=== PATIENT | male | born 1975 | race Two or more races ===

== ENCOUNTER 2022-08-09 13:00 | Emergency (ER) | payer MEDICAID, SELFPAY ==
--- NOTE | ~2022-08-09 | CT_ITS ---
EXAMINATION: CT ABDOMEN AND PELVIS WITHOUT CONTRAST CLINICAL INFORMATION: Left renal colic COMPARISON: CT abdomen and pelvis 06/25/2018 TECHNIQUE: Multidetector volumetric imaging was performed from the superior aspect of the liver through the pubic symphysis. Sagittal and coronal reformatted images were obtained on the technologist's workstation. This CT examination was performed using dose optimization techniques as appropriate, variously including the following: *Automated exposure control *Adjustment of mA and/or kV according to patient size (this includes techniques or standardized protocols for targeted exams where dose is matched to indication/reason for exam; i.e. extremities or head) *Use of iterative reconstruction technique DLP: 529 mGy-cm FINDINGS: LUNG BASES: There is platelike atelectasis right middle lobe and lingula and left lower lobe. Heart size is normal. LIVER, GALLBLADDER, AND BILIARY TREE: The liver is normal in size, shape, and and diffuse hypoattenuation right hepatic lobe No focal hepatic lesion or biliary ductal dilatation is present. The gallbladder is unremarkable with no evidence of radiopaque gallstones, gallbladder wall thickening, or obvious pericholecystic inflammatory changes. PANCREAS: Unremarkable. SPLEEN: Unremarkable. ADRENAL GLANDS: Unremarkable. KIDNEYS AND URETERS: The kidneys are normal in size, shape, and attenuation. There is 6 mm largely obstructive partially obstructive radiopaque calculi right proximal ureter with mild hydronephrosis. There is a partially obstructing left distal ureter 5 mm radiopaque calculi with mild hydroureter. In addition there are bilateral small radiopaque renal calculi. Nonobstructive 3 mm radiopaque radiopaque calculi upper pole and lower pole right kidney. 3 mm nonobstructive calculi mid to lower pole left kidney. BLADDER: Unremarkable. GASTROINTESTINAL TRACT: There is scattered diverticula, stool and gas seen throughout the right colon without distention. The small bowel loops are normal caliber. Appendix is not visualized ABDOMINAL WALL: Small umbilical hernia containing fat is noted. LYMPH NODES: Normal. VASCULAR: Unremarkable. PELVIC VISCERA: Unremarkable. OSSEOUS STRUCTURES: Unremarkable. CT/CT abdomen pelvis wo IV con IMPRESSION: 6 mm partially obstructive radiopaque calculi right distal ureter with mild hydronephrosis. Finally partially obstructive left distal ureter with mild hydronephrosis Bilateral nonobstructive radiopaque renal calculi Fleischner guidelines were followed.
[2022-08-09 13:08] VITALS: BP 141/89; PULSE 80; O2SAT 97
--- NOTE | 2022-08-09 13:23 | ED.GENADULT ---
HPI - General Adult General Chief complaint: Abdominal Pain Stated complaint: lower abd pain, per ems Time Seen by Provider: 08/09/22 13:03 Source: patient Mode of arrival: ambulatory Limitations: no limitations History of Present Illness HPI narrative: 47-year-old male presents with left-sided abdominal pain. The pain radiates left flank into the testicles. This pain started today. Patient describes the pain is constant but there are times it gets worse. There is no clear relieving or exacerbating features. Pain is moderate to severe in nature. Describes the pain as sharp. No fevers or chills. He does have nausea vomiting. He denies any urinary frequency, urgency, dysuria or hematuria. Denies any diarrhea constipation. Pain is similar to previous kidney stone. Related Data Previous Rx's Medication Instructions Recorded ibuprofen 600 mg tablet 600 mg PO TID PRN pain #14 tabs 08/09/22 ondansetron 4 mg disintegrating 4 mg PO Q8H PRN nausea and 08/09/22 tablet vomiting #10 tabs oxycodone 5 mg tablet 5 mg PO Q8H PRN pain #10 tabs 08/09/22 Allergies Allergy/AdvReac Type Severity Reaction Status Date / Time No Known Allergies Allergy Unverified 11/29/19 17:44 Review of Systems Review of Systems: GEN: Well developed, no acute distress, alert, oriented HEENT: Normocephalic, atraumatic, normal external ears, nose appears normal, no oropharyngeal edema or exudates Eyes: Normal to appearance Neck: Supple, no lymphadenopathy Respiratory: Talks in complete sentences, no respiratory distress, clear to auscultation bilaterally Cardiovascular: Regular rate and rhythm, no murmurs rubs or gallops Abdomen: Soft, nontender, nondistended, no guarding, no rebound Back: Left CVAT Extremities: No clubbing cyanosis or edema Neurologic: No focal neurologic deficits, cranial nerves 2-12 intact, strength is 5/5 bilaterally Skin: No rash PMFSH Social History Social History Alcohol intake: never Smoked in Last 30 Days: No Use of substances other than those prescribed or required for medical reasons: No Advance Directives: No Advance Directives Information Provided: Yes Physical Exam ED Vital Signs: Vital Signs - 24 hr 08/09/22 13:24 08/09/22 14:00 08/09/22 16:00 Temperature 97.9 F 98.4 F Pulse Rate 94 85 80 Respiratory Rate 18 18 16 Blood Pressure 131/85 114/81 123/84 Pulse Oximetry 98 96 97 Oxygen Delivery Method Room Air Room Air BMI result Body Mass Index 33.4 Course Course Course Narrative: 47-year-old male presents with flank pain. Exam revealed CVA tenderness. Patient has history kidney stones. This suspect the patient's symptoms are renal colic in nature. Will obtain a CT scan the abdomen pelvis. Will check urinalysis in addition lab testing. Will provide the patient with hydration, intravenous analgesia, antiemetics and re-evaluate patient. Reevaluation(s) Reevaluation #1: CT results pending. Dr. Sanchez to follow up on results, dipo pending Time: 16:30 Medications Administered Discontinued Medications Generic Name Dose Route Start Last Admin Trade Name Freq PRN Reason Stop Dose Admin Sodium Chloride 1,000 mls @ 999 mls/hr 08/09/22 13:30 08/09/22 13:30 Ns IV 08/09/22 14:30 999 mls/hr .Q1H1M CORRINE Administration Ketorolac Tromethamine 15 mg 08/09/22 13:18 08/09/22 13:34 Ketorolac Tromethamine 15 Mg/Ml Vial IVPUSH 08/09/22 13:19 15 mg ONCE ONE Administration Ondansetron HCl 4 mg 08/09/22 13:18 08/09/22 13:34 Ondansetron Hcl 4 Mg/2 Ml Vial IVPUSH 08/09/22 13:19 4 mg ONCE ONE Administration Medical Decision Making Medical Decision Making [facility] Narrative: 47-year-old male presents with left flank pain and abdominal pain. Symptoms are most consistent with renal colic. Other differential diagnosis could include diverticulitis, colitis, IBS, IBD, motility, musculoskeletal, shingles, radiculopathy. Will obtain a CT scan to rule out multiple these differential diagnoses. Will obtain routine lab testing. Will provide patient with IV fluids, analgesia and antiemetics. Differential Diagnosis Differential Diagnoses: The differential diagnosis associated with the presentation includes (See above) Admission/Observation Consideration of admission/observation: Escalation of care including admission/observation considered Lab Data [facility] Lab Attestation statement: I reviewed the patient's lab results. 08/09/22 13:48 08/09/22 13:48 Labs: Lab Results 08/09/22 08/09/22 08/09/22 Range/Units 13:48 13:48 14:27 WBC 8.8 (4.8-10.8) X10*3/uL RBC 5.75 (4.60-5.80) X10*6/uL Hgb 15.8 (14.0-18.0) g/dl Hct 48.9 (42.0-52.0) % MCV 85.0 (80.0-98.0) fL MCH 27.5 (27.0-33.0) pg MCHC 32.3 (31.0-36.0) g/dl RDW 13.7 (11.0-16.0) % Plt Count 224 (160-400) X10*3/uL MPV 11.1 (9.4-12.4) fL Immature Gran % (Auto) 0.3 (0.0-0.4) % Neut % (Auto) 76.5 H (45-73) % Lymph % (Auto) 15.4 L (20-40) % [place] % (Auto) 6.6 (2-11) % Eos % (Auto) 0.7 (0-4) % Baso % (Auto) 0.5 (0-2) % Lymph # (Auto) 1.4 (1.2-4.9) X10*3/uL [place] # (Auto) 0.6 (0.1-1.2) X10*3/uL Eos # (Auto) 0.1 (0.0-0.4) X10*3/uL Baso # (Auto) 0.0 (0.0-0.2) X10*3/uL Abs Immat Gran (auto) 0.03 (0.00-0.03) X10*3/uL Absolute Neuts (auto) 6.8 (2.0-8.3) x10*3/uL Absolute Nucleated RBC 0.000 (0.0-0.012) X10*3/uL Nucleated RBC % (auto) 0.0 (0.0-0.2) /100WBC Sodium 141 (135-145) mmol/L Potassium 4.7 (3.3-5.1) mmol/L Chloride 109 H (96-108) mmol/L Carbon Dioxide 25 (22-29) mmol/L Anion Gap 12 (12-20) BUN 12 (9-16) mg/dL Creatinine 1.32 (0.5-1.4) mg/dL Estim Creat Clear Calc 68.3 Estimated GFR 59 Random Glucose 136 H (60-115) mg/dL Calcium 9.6 (8.4-10.2) mg/dL Total Bilirubin 0.4 (0.0-1.0) mg/dL AST 23 (5-37) U/L ALT 41 H (0-40) U/L Alkaline Phosphatase 79 (39-117) U/L Total Protein 7.1 (6.5-8.0) g/dL Albumin 4.1 (3.5-5.0) g/dL Urine Color Yellow Urine Appearance Clear Urine pH 6.0 (5.0-9.0) Ur Specific Ord <= 1.005 (1.005-1.025) Urine Protein Negative (Neg-Trace) mg/dL Urine Glucose (UA) Negative (Negative) mg/dL Urine Ketones Negative (Negative) mg/dL Urine Blood Moderate (2+) H (Negative) Urine Nitrite Negative (Negative) Ur Leukocyte Esterase Negative (Negative) Independent Interpretation I performed an independent interpretation of an: CT Scan (3/4 mm UVJ stone left) Radiology Impression Discussion of test interpretation with radiology: I have reviewed the radiologist's reading. (Head:) Prescription Management I considered prescription management with: Pain Medication and Antibiotic Discharge Plan Discharge Clinical Impression: Acute flank pain, Calculus of kidney Patient Disposition: Home, Self-Care Instructions: Kidney Stones (ED) Prescriptions: New ibuprofen 600 mg tablet 600 mg PO TID PRN (Reason: pain) Qty: 14 0RF ondansetron 4 mg tablet,disintegrating 4 mg PO Q8H PRN (Reason: nausea and vomiting) Qty: 10 0RF oxycodone 5 mg tablet 5 mg PO Q8H PRN (Reason: pain) Qty: 10 0RF Rx Instructions: Partial Fill upon patient request. Referrals: Jeff Wang MD [Physician] - 3 days
[2022-08-09 13:24] VITALS: BP 131/85; PULSE 94; RESP 18; TEMP 36.6; O2SAT 98; BMI 33.4
[2022-08-09] MEDS: 0.9 % Sodium Chloride 1,000 ML 999 ML IV (13:30)
[2022-08-09] MEDS: Ketorolac Tromethamine 15 MG/ML VIAL IVPUSH (13:34)
[2022-08-09] MEDS: ondansetron HCL 4 MG/2 ML VIAL IVPUSH (13:34)
[2022-08-09 13:52] LABS: MANUAL DIFF FLAG NO
[2022-08-09 13:53] LABS: Basophils Percent Auto 0.5 % (0-2); Eosinophils Absolute Auto 0.1 X10*3/uL (0.0-0.4); Eosinophils Percent Auto 0.7 % (0-4); Hematocrit 48.9 % (42.0-52.0); Hemoglobin 15.8 g/dl (14.0-18.0); Imm Gran Abs Auto 0.03 X10*3/uL (0.00-0.03); Imm Gran Pct Auto 0.3 % (0.0-0.4); Lymphocytes Absolute Auto 1.4 X10*3/uL (1.2-4.9); Lymphocytes Percent Auto 15.4 % (20-40); Mean Corpuscular HGB Conc 32.3 g/dl (31.0-36.0); Mean Corpuscular Hemoglobin 27.5 pg (27.0-33.0); Mean Platelet Volume 11.1 fL (9.4-12.4); Monocytes Absolute Auto 0.6 X10*3/uL (0.1-1.2); Monocytes Percent Auto 6.6 % (2-11); Neutrophils Absolute Auto 6.8 x10*3/uL (2.0-8.3); Neutrophils Percent Auto 76.5 % (45-73); Platelet Count 224 X10*3/uL (160-400); Red Blood Count 5.75 X10*6/uL (4.60-5.80); Red Cell Distribution Width 13.7 % (11.0-16.0); White Blood Count 8.8 X10*3/uL (4.8-10.8)
[2022-08-09 14:00] VITALS: BP 114/81; PULSE 85; RESP 18; O2SAT 96
[2022-08-09 14:10] LABS: Alanine Aminotransferase 41 U/L (0-40); Albumin Level 4.1 g/dL (3.5-5.0); Alkaline Phosphatase 79 U/L (39-117); Anion Gap 12 (12-20); Aspartate Amino Transferase 23 U/L (5-37); Bilirubin Total 0.4 mg/dL (0.0-1.0); Blood Urea Nitrogen 12 mg/dL (9-16); Calcium 9.6 mg/dL (8.4-10.2); Carbon Dioxide 25 mmol/L (22-29); Chloride 109 mmol/L (96-108); Creatinine Clr Calc Pharmacy 68.3; Estimated Glomerular Filt Rate 59; Glucose Random 136 mg/dL (60-115); Potassium 4.7 mmol/L (3.3-5.1); Sodium 141 mmol/L (135-145); Total Protein 7.1 g/dL (6.5-8.0)
[2022-08-09 14:35] LABS: Appearance Urine Clear; Color Urine Yellow; Glucose Urine UA Negative (Negative); Leukocyte Esterase Urine Negative (Negative); Nitrite Urine Negative (Negative); Specific Gravity - Urine <= 1.005 (1.005-1.025); UMIC TRIGGER UACC YES; Urine Blood Moderate (2+) (Negative); Urine Ketones Negative (Negative); Urine Protein Negative (Neg-Trace)
[2022-08-09 16:00] VITALS: BP 123/84; PULSE 80; RESP 16; TEMP 36.9; O2SAT 97
[2022-08-09 16:30] LABS: Bacteria Urine None Seen (None Seen); Hyaline Casts Urine 0-2 /LPF (0-2); Squamous Epithelial Cell Urine 0-2 /HPF (0-2); WBC Urine 0-5 /HPF (0-5)
[2022-08-09 17:03] LABS: Glucose, Whole Blood 81 mg/dL (60-115)
[2022-08-09 17:26] VITALS: BP 126/89; PULSE 85; RESP 18; TEMP 36.9; O2SAT 98
[2022-08-09] MEDS: Tamsulosin HCL 0.4 MG CAPSULE PO (17:41)
[2022-08-09] MEDS: predniSONE 20 MG TABLET 40 MG PO (17:41)
[2022-08-09] MEDS: HYDROmorphone HCl 1 MG/ML SYRINGE IVPUSH (17:42)
--- NOTE | 2022-08-09 17:50 | PC.NURSE ---
pt medicated per MAY. reporting 7/10 pain.
== END 2022-08-09 18:25 | disposition home or self-care (01) ==
PROVIDERS: Emergency Provider Emergency Medicine; PCP Physician Assistant
DX: N20.0 Calculus of kidney (principal); R10.9 Unspecified abdominal pain; Z79.899 Other long term (current) drug therapy
CPT/HCPCS: 36415; 74176; 80053; 81001; 81003; 82947; 85025; 96361; 96374; 96375; 99284; J1170; J1885; J2405

== ENCOUNTER 2022-08-11 07:51 | Inpatient (IN) | payer MEDICAID, SELFPAY ==
--- NOTE | ~2022-08-11 | CT_ITS ---
EXAMINATION: CT ABDOMEN AND PELVIS WITHOUT CONTRAST CLINICAL INFORMATION: Reassess ureteral stents COMPARISON: 08/09/2022 and 06/26/2018 TECHNIQUE: Multidetector volumetric imaging was performed from the superior aspect of the liver through the pubic symphysis. Sagittal and coronal reformatted images were obtained on the technologist's workstation. This CT examination was performed using dose optimization techniques as appropriate, variously including the following: *Automated exposure control *Adjustment of mA and/or kV according to patient size (this includes techniques or standardized protocols for targeted exams where dose is matched to indication/reason for exam; i.e. extremities or head) *Use of iterative reconstruction technique DLP: 541 mGy-cm FINDINGS: LUNG BASES: Bibasilar subsegmental atelectasis. LIVER, GALLBLADDER, AND BILIARY TREE: Diffuse hepatic steatosis. No focal liver lesions. No biliary dilatation. Cholelithiasis suspected. No pericholecystic inflammation. PANCREAS: Unremarkable. SPLEEN: Unremarkable. ADRENAL GLANDS: Unremarkable. KIDNEYS AND URETERS: A 4.5 mm stone in the proximal right ureter just distal to the ureteropelvic junction at the level of L3 has not changed in position from 08/09/2022. A 3 mm stone at the left ureterovesical junction is also unchanged in position. There is bilateral hydronephrosis, slightly worse from prior, moderate on the left and mild on the right, with associated left perinephric fat stranding. There are 2 additional nonobstructive calculi in the right kidney and one nonobstructive calculus in the left kidney. BLADDER: Unremarkable. GASTROINTESTINAL TRACT: Gastric pneumatosis present. Remainder of the gastrointestinal tract unremarkable. Appendix not seen, however there is no evidence of appendicitis. ABDOMINAL WALL: No significant hernia is appreciated. LYMPH NODES: Normal. VASCULAR: Patent venous structures. PELVIC VISCERA: Mild prostatomegaly. Seminal vesicles unremarkable. OSSEOUS STRUCTURES: No acute or suspicious osseous abnormalities. CT/CT abdomen pelvis wo IV con IMPRESSION: * No change in position of the distal left and proximal right ureteral calculi as described. * Slightly worsened bilateral hydronephrosis, moderate left and mild right with accompanying perinephric fat stranding on the left. * Incidental finding of gastric pneumatosis. Gastric pneumatosis can result from gastric emphysema, as can be seen with traumatic disruption of the mucosa, other forms of trauma or gastric outlet obstruction. Emphysematous gastritis is seen in setting of infection with a gas producing bacteria. Please correlate with lactate, CBC and clinical status to distinguish between the two possibilities. Also, we recommend a GI consult. * Hepatic steatosis.
--- NOTE | ~2022-08-11 | FL_ITS ---
EXAMINATION: XR FLUOROSCOPY WITH IMAGES CLINICAL INFORMATION: Bilateral cystoscopy with stent placement. COMPARISON: CT scan of 08/11/2022. TECHNIQUE: Fluoroscopy Supervised By: Dr. Alvarez. Fluoroscopy Time: 49 seconds. Cumulative Dose: 15.62 mGy. Images: 3. FINDINGS: Intraoperative fluoroscopy demonstrates retrograde cystoureterography with right stent placement. FL/FL guidance in OR IMPRESSION: Intraoperative fluoroscopy for urological procedure.
[2022-08-11 07:56] VITALS: BP 115/88; PULSE 82; RESP 20; TEMP 36.4; O2SAT 99; BMI 31.9
[2022-08-11 08:01] VITALS: BP 123/83; PULSE 100; O2SAT 99
--- NOTE | 2022-08-11 08:03 | ED.GENADULT ---
HPI - General Adult General Chief complaint: Abdominal Pain Stated complaint: LLF PAIN,H/O KIDNEY STONE PER EMS Source: patient and EMS Mode of arrival: EMS Limitations: no limitations History of Present Illness HPI narrative: Patient is a 47-year-old male seen in this ED on 08/09/22 and was found to have 6mm partially obstructing calculi to right distal ureter as well as 5mm partially obstructing calculi to left distal ureter presenting today with left flank pain radiating to left groin as well as nausea and vomiting. He describes pain as constant. He reports that he has the urge to urinate but has been unable to void since waking. He reports last void was around midnight last night. When he attempted to urinate this morning he noted only several drops of blood. He reports nausea and vomiting for the past two days, denies fevers/chills. Patient states that he did not contact Dr. Wang's office yesterday as instructed because he thought he was supposed to call in 3 days. He took Tylenol this morning without relief of pain. MD complaint: unable to void, left flank pain Location: back and abdomen Severity: severe Pain Consistency: constant Treatments prior to arrival: other (Tylenol) Related Data Home Medications Medication Instructions Recorded Confirmed albuterol sulfate 90 mcg/actuation 2 puff inhalation Q6H PRN 08/11/22 08/11/22 aerosol inhaler (Ventolin HFA) Shortness Of Breath Or Wheezing celecoxib 100 mg capsule (Celebrex) 200 mg PO DAILY PRN Pain 08/11/22 08/11/22 clonazepam 0.5 mg tablet 0.5 mg PO BID PRN Anxiety 08/11/22 08/11/22 diclofenac sodium 1 % topical gel 4 g topical QID 08/11/22 08/11/22 famotidine 40 mg tablet 40 mg PO BEDTIME 08/11/22 08/11/22 fluticasone propionate 110 2 puff inhalation BID 08/11/22 08/11/22 mcg/actuation HFA aerosol inhaler fluticasone propionate 50 1 spray intranasal DAILY 08/11/22 08/11/22 mcg/actuation nasal spray,suspension loratadine 10 mg tablet 10 mg PO BEDTIME PRN Allergic 08/11/22 08/11/22 Reaction montelukast 10 mg tablet 10 mg PO BEDTIME 08/11/22 08/11/22 (Singulair) pregabalin 200 mg capsule 200 mg PO TID 08/11/22 08/11/22 sertraline 100 mg tablet 100 mg PO DAILY 08/11/22 08/11/22 zolpidem 10 mg tablet 10 mg PO BEDTIME PRN Sleep 08/11/22 08/11/22 Previous Rx's Medication Instructions Recorded ibuprofen 600 mg tablet 600 mg PO TID PRN pain #14 tabs 08/09/22 ondansetron 4 mg disintegrating 4 mg PO Q8H PRN nausea and 08/09/22 tablet vomiting #10 tabs oxycodone 5 mg tablet 5 mg PO Q8H PRN pain #10 tabs 08/09/22 prednisone 20 mg tablet 20 mg PO BID #10 tabs 08/09/22 tamsulosin 0.4 mg capsule (Flomax) 0.4 mg PO BEDTIME #10 caps 08/09/22 hydromorphone 2 mg tablet 2 mg PO Q6H PRN pain #6 tabs 08/12/22 (Dilaudid) Allergies Allergy/AdvReac Type Severity Reaction Status Date / Time No Known Allergies Allergy Verified 08/11/22 08:00 Review of Systems Review of Systems: As per HPI. Yes all other systems are reviewed and are negative Constitutional: Constitutional: Reports no additional constitutional complaints Cardiovascular: Cardiovascular: Reports no additional cardiovascular complaints Respiratory: Respiratory: Reports no additional respiratory complaints Gastrointestinal: Gastrointestinal: Reports no additional gastrointestinal complaints Genitourinary: Genitourinary: Reports no additional male genitourinary complaints Musculoskeletal: Musculoskeletal: Reports no additional musculoskeletal complaints Neurologic: Reports system reviewed and no additional complaints, except as documented [facility] Past Medical History Medical History (Updated 08/12/22 @ 17:31 by Jeff Raya MD) Anxiety Asthma Social History Social History Household Members: Significant Other Housing: Apartment Do you presently have visiting nurse or other home services: No Alcohol intake: never Patient Tobacco Use Status: Never used Tobacco service: No Current occupational status: disabled Physical Exam ED Vital Signs: Vital Signs - 24 hr 08/11/22 07:56 08/11/22 13:31 Temperature 97.6 F 98.1 F Pulse Rate 82 97 Respiratory Rate 20 16 Blood Pressure 115/88 133/89 Pulse Oximetry 99 98 Oxygen Delivery Method Room Air Room Air BMI result Body Mass Index 31.9 Vital signs have been reviewed and appear to be correct. Blood pressure normal. Heart rate normal. Respiratory rate normal. Temperature normal. Oxygen saturation normal. Const General: cooperative, healthy appearing and no acute distress; No comfortable Orientation/consciousness: oriented to person, oriented to place, oriented to time and patient oriented x3 Limitations: no limitations [facility] Head: Yes normocephalic and Yes atraumatic Ears: external ears normal General nose exam: Normal external nose present Face and sinus: Yes face symmetric Mouth: oropharynx normal and moist mucous membranes Throat: Yes uvula midline Eyes Pupils: Equal, round and reactive pupils present Neck Neck: Yes normal visual inspection and Yes supple Resp Effort & Inspection: normal respiratory effort and able to speak in complete sentences Auscultation: clear to auscultation bilaterally Cardio Rate: regular rate Rhythm: regular rhythm Heart sounds: S1 normal heart sound present and S2 normal heart sound present GI Inspection: Yes normal to inspection Palpation (GI): Soft to palpation, Tenderness to palpation present (GI) in the LLQ, no guarding and No Rebound tenderness present Auscultation: normoactive bowel sounds General: Yes CVA tenderness on the left Back/Spine/Pelvis Back: CVA tenderness Skin General skin exam: elasticity normal and turgor normal Neuro General: oriented to person, oriented to place, oriented to time, patient oriented x3, moves all extremities, no focal motor deficits and CN's II-XI intact bilaterally Cranial nerves: Yes Equal, round and reactive pupils present Cognition (Neuro): normal cognition Extrem General: Yes full ROM, Yes no pedal edema and Yes no calf tenderness Psych Mental Status: mental status grossly normal Affect: normal affect Thought process: Normal thought process present Course Course Course Narrative: 09:50 Repeat bladder scan after administration of 1L IVF shows 30mL. Creatinine up from Tuesday. Will order additional liter of fluids and reassess. 11:31 Patient able to urinate but pain has increased. Will remedicate with Constantino Caban text to Dr. Ambrose. 12:48 Dr. Ambrose recommends rescanning patient to determine if he needs bilateral stents. She will admit for IVF and stent tomorrow. Patient to remain NPO. Patient updated on plan and all questions answered, patient agreeable with plan. 14:33 Received call from radiologist, patient with gastric pneumatosis on CT. Advised to correlate clinically, he recommends obtaining a lactic level. He advised that if patient is not febrile, has no leukocytosis and is hemodynamically stable, this is likely related to a gas producing organism or from vomiting/wretching. Patient is afebrile, has no leukocytosis, and has remained hemodynamically stable while in the ED. Spoke with Dr. Ambrose and updated her with this information. Will obtain lactic and patient to remain NPO. 16:04 Lactic WNL, Dr. Ambrose updated and admitted patient Medications Administered Discontinued Medications Generic Name Dose Route Start Last Admin Trade Name Freq PRN Reason Stop Dose Admin Hydromorphone HCl 0.5 mg 08/11/22 09:55 08/11/22 10:11 Hydromorphone Hcl 0.5 Mg/0.5 Ml Syringe IVPUSH 08/11/22 09:56 0.5 mg ONCE ONE Administration Protocol Hydromorphone HCl 0.5 mg 08/11/22 11:30 08/11/22 11:38 Hydromorphone Hcl 0.5 Mg/0.5 Ml Syringe IVPUSH 08/11/22 11:31 0.5 mg ONCE ONE Administration Protocol Hydromorphone HCl 0.5 mg 08/11/22 15:20 08/11/22 15:26 Hydromorphone Hcl 0.5 Mg/0.5 Ml Syringe IVPUSH 08/11/22 15:21 0.5 mg ONCE ONE Administration Protocol Hydromorphone HCl 0.5 mg 08/11/22 15:57 08/12/22 19:56 Hydromorphone Hcl 1 Mg/Ml Syringe IVPUSH 0.5 mg Q3H PRN Administration Pain, Severe (Pain Scale 7-10) Protocol Sodium Chloride 1,000 mls @ 999 mls/hr 08/11/22 08:30 08/11/22 09:27 Ns IV 08/11/22 09:30 Infused .Q1H1M CORRINE Infusion Sodium Chloride 1,000 mls @ 999 mls/hr 08/11/22 09:30 08/11/22 11:41 Ns IV 08/11/22 10:30 Infused .Q1H1M CORRINE Infusion Lactated Ringer's 1,000 mls @ 100 mls/hr 08/11/22 16:00 08/12/22 17:57 Lr IVCONT 0 mls/hr .Q10H CORRINE Infusion Cefazolin Sodium/Dextrose 2 gm in 50 mls @ 100 mls/hr 08/12/22 16:46 08/12/22 20:44 Ancef IV 08/12/22 17:15 Not Given PREOP ONE Acetaminophen 1,000 mg in 100 mls @ 400 mls/hr 08/12/22 17:34 08/12/22 20:45 Ofirmev IV 08/12/22 17:48 Not Given ONCE ONE Ketorolac Tromethamine 15 mg 08/11/22 08:10 08/11/22 08:24 Ketorolac Tromethamine 15 Mg/Ml Vial IVPUSH 08/11/22 08:11 15 mg ONCE ONE Administration Methylprednisolone Sodium Succinate 60 mg 08/11/22 08:16 08/11/22 08:24 Methylprednisolone Sod Succ 125 Mg/2 Ml Vial IVPUSH 08/11/22 08:17 60 mg ONCE ONE Administration Ondansetron HCl 4 mg 08/11/22 08:10 08/11/22 08:24 Ondansetron Hcl 4 Mg/2 Ml Vial IVPUSH 08/11/22 08:11 4 mg ONCE ONE Administration Sodium Chloride 3 ml 08/11/22 16:00 08/12/22 14:37 0.9 % Sodium Chloride Flush 3 Ml Syringe IVFLUSH Not Given QSHIFT CORRINE Tamsulosin HCl 0.4 mg 08/11/22 08:16 08/11/22 08:24 Tamsulosin Hcl 0.4 Mg Capsule PO 08/11/22 08:17 0.4 mg ONCE ONE Administration Medical Decision Making Medical Decision Making [facility] Narrative: Patient is a 47-year-old male seen in this ED on 08/09/22 and was found to have 6mm partially obstructing calculi to right distal ureter as well as 5mm partially obstructing calculi to left distal ureter presenting today with left flank pain radiating to left groin as well as nausea and vomiting. On exam patient appears uncomfortable, is awake, A+Ox3, initial bladder scans reading 0mL, abdomen soft, TTP LLQ, + L CVA tenderness. Given known calculi concerned for obstructing/infected stone versus pyelonephritis. Less likely diverticulitis, appendicitis, colitis, IBD. Plan: labs, UA, medicate with antiemetics, analgesia, tamsulosin, reassess Please refer to course for remaining clinical decision making. Differential Diagnosis Differential Diagnoses: The differential diagnosis associated with the presentation includes As above. Admission/Observation Consideration of admission/observation: Escalation of care including admission/observation considered Consult Healthcare Provider Management of the patient was discussed with: Agriculture Sales Account Manager (Dr. Ambrose) Lab Data MDM Lab Attestation statement: I reviewed the patient's lab results. 08/11/22 08:13 08/11/22 08:13 Labs: Lab Results 08/11/22 08/11/22 08/11/22 Range/Units 08:13 08:13 11:32 WBC 8.4 (4.8-10.8) X10*3/uL RBC 5.78 (4.60-5.80) X10*6/uL Hgb 15.6 (14.0-18.0) g/dl Hct 49.2 (42.0-52.0) % MCV 85.1 (80.0-98.0) fL MCH 27.0 (27.0-33.0) pg MCHC 31.7 (31.0-36.0) g/dl RDW 14.1 (11.0-16.0) % Plt Count 219 (160-400) X10*3/uL MPV 10.9 (9.4-12.4) fL Immature Gran % (Auto) 0.4 (0.0-0.4) % Neut % (Auto) 59.4 (45-73) % Lymph % (Auto) 28.3 (20-40) % [place] % (Auto) 8.7 (2-11) % Eos % (Auto) 2.7 (0-4) % Baso % (Auto) 0.5 (0-2) % Lymph # (Auto) 2.4 (1.2-4.9) X10*3/uL [place] # (Auto) 0.7 (0.1-1.2) X10*3/uL Eos # (Auto) 0.2 (0.0-0.4) X10*3/uL Baso # (Auto) 0.0 (0.0-0.2) X10*3/uL Abs Immat Gran (auto) 0.03 (0.00-0.03) X10*3/uL Absolute Neuts (auto) 5.0 (2.0-8.3) x10*3/uL Absolute Nucleated RBC 0.000 (0.0-0.012) X10*3/uL Nucleated RBC % (auto) 0.0 (0.0-0.2) /100WBC Sodium 146 H (135-145) mmol/L Potassium 4.7 (3.3-5.1) mmol/L Chloride 111 H (96-108) mmol/L Carbon Dioxide 26 (22-29) mmol/L Anion Gap 14 (12-20) BUN 12 (9-16) mg/dL Creatinine 1.43 H (0.5-1.4) mg/dL Estim Creat Clear Calc 61.6 Estimated GFR 53 Random Glucose 138 H (60-115) mg/dL Lactic Acid (0.5-2.0) mmol/L Calcium 9.7 (8.4-10.2) mg/dL Urine Color Yellow Urine Appearance Clear Urine pH 8.0 (5.0-9.0) Ur Specific [place] 1.010 (1.005-1.025) Urine Protein Negative (Neg-Trace) mg/dL Urine Glucose (UA) Negative (Negative) mg/dL Urine Ketones Negative (Negative) mg/dL Urine Blood Trace H (Negative) Urine Nitrite Negative (Negative) Ur Leukocyte Esterase Negative (Negative) Urine RBC 3-5 H (0-2) /HPF Urine WBC 0-5 (0-5) /HPF Ur Squamous Epith Cells 0-2 (0-2) /HPF Urine Bacteria None Seen (None Seen) Hyaline Casts 0-2 (0-2) /LPF 08/11/22 Range/Units 14:58 WBC (4.8-10.8) X10*3/uL RBC (4.60-5.80) X10*6/uL Hgb (14.0-18.0) g/dl Hct (42.0-52.0) % MCV (80.0-98.0) fL MCH (27.0-33.0) pg MCHC (31.0-36.0) g/dl RDW (11.0-16.0) % Plt Count (160-400) X10*3/uL MPV (9.4-12.4) fL Immature Gran % (Auto) (0.0-0.4) % Neut % (Auto) (45-73) % Lymph % (Auto) (20-40) % [place] % (Auto) (2-11) % Eos % (Auto) (0-4) % Baso % (Auto) (0-2) % Lymph # (Auto) (1.2-4.9) X10*3/uL [place] # (Auto) (0.1-1.2) X10*3/uL Eos # (Auto) (0.0-0.4) X10*3/uL Baso # (Auto) (0.0-0.2) X10*3/uL Abs Immat Gran (auto) (0.00-0.03) X10*3/uL Absolute Neuts (auto) (2.0-8.3) x10*3/uL Absolute Nucleated RBC (0.0-0.012) X10*3/uL Nucleated RBC % (auto) (0.0-0.2) /100WBC Sodium (135-145) mmol/L Potassium (3.3-5.1) mmol/L Chloride (96-108) mmol/L Carbon Dioxide (22-29) mmol/L Anion Gap (12-20) BUN (9-16) mg/dL Creatinine (0.5-1.4) mg/dL Estim Creat Clear Calc Estimated GFR Random Glucose (60-115) mg/dL Lactic Acid 0.9 (0.5-2.0) mmol/L Calcium (8.4-10.2) mg/dL Urine Color Urine Appearance Urine pH (5.0-9.0) Ur Specific [place] (1.005-1.025) Urine Protein (Neg-Trace) mg/dL Urine Glucose (UA) (Negative) mg/dL Urine Ketones (Negative) mg/dL Urine Blood (Negative) Urine Nitrite (Negative) Ur Leukocyte Esterase (Negative) Urine RBC (0-2) /HPF Urine WBC (0-5) /HPF Ur Squamous Epith Cells (0-2) /HPF Urine Bacteria (None Seen) Hyaline Casts (0-2) /LPF Independent Interpretation I performed an independent interpretation of an: CT Scan Interpretation: I independently reviewed the CT scan and agree with the radiologist's interpretation. Radiology Impression Discussion of test interpretation with radiology: I have reviewed the radiologist's reading. Radiologist Impression: FINDINGS: LUNG BASES: Bibasilar subsegmental atelectasis.? LIVER, GALLBLADDER, AND BILIARY TREE: Diffuse hepatic steatosis. No focal liver lesions. No biliary dilatation. Cholelithiasis suspected. No pericholecystic inflammation.? PANCREAS: Unremarkable.? SPLEEN: Unremarkable.? ADRENAL GLANDS: Unremarkable.? KIDNEYS AND URETERS: A 4.5 mm stone in the proximal right ureter just distal to the ureteropelvic junction at the level of L3 has not changed in position from 08/09/2022. A 3 mm stone at the left ureterovesical junction is also unchanged in position. There is bilateral hydronephrosis, slightly worse from prior, moderate on the left and mild on the right, with associated left perinephric fat stranding. There are 2 additional nonobstructive calculi in the right kidney and one nonobstructive calculus in the left kidney. BLADDER: Unremarkable.? GASTROINTESTINAL TRACT: Gastric pneumatosis present. Remainder of the gastrointestinal tract unremarkable. Appendix not seen, however there is no evidence of appendicitis.? ABDOMINAL WALL: No significant hernia is appreciated.? LYMPH NODES: Normal. VASCULAR: Patent venous structures. PELVIC VISCERA: Mild prostatomegaly. Seminal vesicles unremarkable.? OSSEOUS STRUCTURES: No acute or suspicious osseous abnormalities.? CT/CT abdomen pelvis wo IV con IMPRESSION: *? No change in position of the distal left and proximal right ureteral calculi as described. *? Slightly worsened bilateral hydronephrosis, moderate left and mild right with accompanying perinephric fat stranding on the left. *? Incidental finding of gastric pneumatosis. Gastric pneumatosis can result from gastric emphysema, as can be seen with traumatic disruption of the mucosa, other forms of trauma or gastric outlet obstruction. Emphysematous gastritis is seen in setting of infection with a gas producing bacteria. Please correlate with lactate, CBC and clinical status to distinguish between the two possibilities. Also, we recommend a GI consult. *? Hepatic steatosis. External Record Review External record reviewed: Inpatient record, Office record and Outpatient record Prescription Management I considered prescription management with: Pain Medication Discharge Plan Discharge Clinical Impression: Bilateral ureteral calculi Patient Disposition: Admitted As Inpatient Interventions: Admission Worksheet (ED) Last Done: 08/11/22 17:14 Discharge Date/Time: 08/11/22 17:14
[2022-08-11] MEDS: 0.9 % Sodium Chloride 1,000 ML 999 ML IV ×2 (08:23→09:54)
[2022-08-11] MEDS: Ketorolac Tromethamine 15 MG/ML VIAL IVPUSH (08:24)
[2022-08-11] MEDS: ondansetron HCL 4 MG/2 ML VIAL IVPUSH (08:24)
[2022-08-11] MEDS: Tamsulosin HCL 0.4 MG CAPSULE PO (08:24)
[2022-08-11] MEDS: methylPREDNISolone Sod Succ 125 MG/2 ML VIAL 60 MG IVPUSH (08:24)
[2022-08-11 08:25] LABS: MANUAL DIFF FLAG NO
[2022-08-11 08:30] LABS: Basophils Percent Auto 0.5 % (0-2); Eosinophils Absolute Auto 0.2 X10*3/uL (0.0-0.4); Eosinophils Percent Auto 2.7 % (0-4); Hematocrit 49.2 % (42.0-52.0); Hemoglobin 15.6 g/dl (14.0-18.0); Imm Gran Abs Auto 0.03 X10*3/uL (0.00-0.03); Imm Gran Pct Auto 0.4 % (0.0-0.4); Lymphocytes Absolute Auto 2.4 X10*3/uL (1.2-4.9); Lymphocytes Percent Auto 28.3 % (20-40); Mean Corpuscular HGB Conc 31.7 g/dl (31.0-36.0); Mean Corpuscular Volume 85.1 fL (80.0-98.0); Mean Platelet Volume 10.9 fL (9.4-12.4); Monocytes Absolute Auto 0.7 X10*3/uL (0.1-1.2); Monocytes Percent Auto 8.7 % (2-11); Neutrophils Percent Auto 59.4 % (45-73); Platelet Count 219 X10*3/uL (160-400); Red Blood Count 5.78 X10*6/uL (4.60-5.80); Red Cell Distribution Width 14.1 % (11.0-16.0); White Blood Count 8.4 X10*3/uL (4.8-10.8)
[2022-08-11 08:45] LABS: Anion Gap 14 (12-20); Blood Urea Nitrogen 12 mg/dL (9-16); Calcium 9.7 mg/dL (8.4-10.2); Carbon Dioxide 26 mmol/L (22-29); Chloride 111 mmol/L (96-108); Creatinine Clr Calc Pharmacy 61.6; Estimated Glomerular Filt Rate 53; Glucose Random 138 mg/dL (60-115); Potassium 4.7 mmol/L (3.3-5.1); Sodium 146 mmol/L (135-145)
[2022-08-11] MEDS: HYDROmorphone HCl 0.5 MG/0.5 ML SYRINGE IVPUSH ×3 (10:11→15:26)
[2022-08-11 11:41] LABS: Appearance Urine Clear; Color Urine Yellow; Glucose Urine UA Negative (Negative); Leukocyte Esterase Urine Negative (Negative); Nitrite Urine Negative (Negative); UMIC TRIGGER UACC YES; Urine Blood Trace (Negative); Urine Ketones Negative (Negative); Urine Protein Negative (Neg-Trace)
[2022-08-11 11:45] LABS: Bacteria Urine None Seen (None Seen); Hyaline Casts Urine 0-2 /LPF (0-2); Squamous Epithelial Cell Urine 0-2 /HPF (0-2); WBC Urine 0-5 /HPF (0-5)
[2022-08-11 13:31] VITALS: BP 133/89; PULSE 97; RESP 16; TEMP 36.7; O2SAT 98
--- NOTE | 2022-08-11 13:36 | PC.NURSE ---
patient alert, oriented x4. able to make needs known. ambulating to and from the bathroom with strong independent gait. call galicia within reach
--- NOTE | 2022-08-11 13:54 | PHA.MEDREC ---
Pharmacy Consult ? Medication Reconciliation Pharmacy has completed the medication reconciliation. Med rec complete using med list obtained from [facility] and discharge summary from 08/09.
--- NOTE | 2022-08-11 15:16 | PC.NURSE ---
Resumed care of patient, pt complaining of 8/10 pain at this time, awaiting admission orders. All other needs made at this time.
[2022-08-11 15:17] LABS: Lactic Acid 0.9 mmol/L (0.5-2.0)
[2022-08-11 15:26] VITALS: RESP 20
--- NOTE | 2022-08-11 15:59 | P.HPGS_ITS ---
History of Present Illness History of Present Illness Date of Service: 08/12/22 Chief complaint: acute kidney insufficeny secondary to obstructive Narrative: Vidal Ennis is a 47-year-old male seen in this ED on 08/09/22 and was found to have 6mm partially obstructing calculi to right proximal ureter stone and a 5mm left distal ureter, he was sent home with flomax and comes in today with worsening left flank pain radiating to left groin as well as nausea and vomiting.? He describes pain as constant.? He reports that he has the urge to urinate but has been unable to void since waking.? He reports last void was around midnight last night.? When he attempted to urinate this morning he noted only several drops of blood.? He reports nausea and vomiting for the past two days, denies fevers/chills. Patient states that he did not contact Dr. Wang's office yesterday as instructed because he thought he was supposed to call in 3 days.? He took Tylenol this morning without relief of pain. Repeat CTAP notes bilateral ureteral stones in similar position with worsening hydronephrosis. [facility] Social History Social History Household Members: Significant Other Housing: Apartment Do you presently have visiting nurse or other home services: No Alcohol intake: never Patient Tobacco Use Status: Never used Tobacco Use of substances other than those prescribed or required for medical reasons: No Currently Displaying Signs/Symptoms of Drug Intoxication Withdrawal: No Have you been hit, kicked, punched, or otherwise hurt by someone within the past year? If so, by whom?: No Do you feel safe in your current relationship?: Yes Is there a partner from a previous relationship who is making you feel unsafe now?: No Are you made to feel afraid or neglected: No Advance Directives: No Advance Directives Information Provided: No Do you have thoughts of harming others: None Do you have a plan to hurt others: No Plan Recently lost weight without trying: No Eating poorly because of decreased appetite: No Nutrition Risks: No Nutritional Risk Poor oral hygiene: No service: No Current occupational status: disabled Meds Allergies Allergy/AdvReac Type Severity Reaction Status Date / Time No Known Allergies Allergy Verified 08/11/22 08:00 Active Medications: Current Medications Hydromorphone HCl (Hydromorphone Hcl 1 Mg/Ml Syringe) 0.5 mg IVPUSH Q3H PRN; Protocol PRN Reason: Pain, Severe (Pain Scale 7-10) Pharmacy Consult (Consult Rx Perform Med Rec) 1 each MISCELLANE ONCE PRN PRN Reason: Consult order Sodium Chloride (0.9 % Sodium Chloride Flush 3 Ml Syringe) [facility] Medic[facility] Medication Instructions Recorded Confirmed Last Taken Type albuterol sulfate 90 mcg/actuation 2 puff inhalation Q6H PRN 08/11/22 08/11/22 Unknown History aerosol inhaler (Ventolin HFA) Shortness Of Breath Or Wheezing celecoxib 100 mg capsule (Celebrex) 200 mg PO DAILY PRN Pain 08/11/22 08/11/22 Unknown History clonazepam 0.5 mg tablet 0.5 mg PO BID PRN Anxiety 08/11/22 08/11/22 Unknown History diclofenac sodium 1 % topical gel 4 g topical QID 08/11/22 08/11/22 Unknown History famotidine 40 mg tablet 40 mg PO BEDTIME 08/11/22 08/11/22 Unknown History fluticasone propionate 110 2 puff inhalation BID 08/11/22 08/11/22 Unknown History mcg/actuation HFA aerosol inhaler fluticasone propionate 50 1 spray intranasal DAILY 08/11/22 08/11/22 Unknown History mcg/actuation nasal spray,suspension loratadine 10 mg tablet 10 mg PO BEDTIME PRN Allergic 08/11/22 08/11/22 Unknown History Reaction montelukast 10 mg tablet 10 mg PO BEDTIME 08/11/22 08/11/22 Unknown History (Singulair) pregabalin 200 mg capsule 200 mg PO TID 08/11/22 08/11/22 Unknown History sertraline 100 mg tablet 100 mg PO DAILY 08/11/22 08/11/22 Unknown History zolpidem 10 mg tablet 10 mg PO BEDTIME PRN Sleep 08/11/22 08/11/22 Unknown History Physical Exam Vital Signs: Vital Signs: Last Vital Signs Temp 98.1 F 08/11/22 13:31 Pulse 97 08/11/22 13:31 Resp 20 08/11/22 15:26 BP 133/89 08/11/22 13:31 Pulse Ox 98 08/11/22 13:31 O2 Del Method Room Air 08/11/22 13:31 BMI result Body Mass Index 31.9 Const: General: healthy appearing, no acute distress and well developed Orientation/consciousness: patient oriented x3 HEENT: Head: Yes normocephalic and Yes atraumatic Eyes: Conjunctivae: conjunctivae normal Neck: Neck: Yes normal visual inspection Chest: Chest palpation & inspection: normal inspection of the chest Resp: Effort & Inspection: normal respiratory effort Cardio: Rate: regular rate GI: Inspection: Yes normal to inspection Palpation (GI): Soft to palpation : General: Yes CVA tenderness (bilateral) Back/Spine/Pelvis: Back: CVA tenderness (bilateral) Skin: General skin exam: no rashes or lesions noted Neuro: General: patient oriented x3 Extrem: General: No pedal edema Psych: Appearance: grossly normal Affect: normal affect Results Results Labs: Short CBC 08/11/22 Range/Units 08:13 WBC 8.4 (4.8-10.8) X10*3/uL Hgb 15.6 (14.0-18.0) g/dl Hct 49.2 (42.0-52.0) % Plt Count 219 (160-400) X10*3/uL BMP 08/11/22 08:13 Sodium 146 H Potassium 4.7 Chloride 111 H Carbon Dioxide 26 BUN 12 Creatinine 1.43 H Calcium 9.7 Urine 08/11/22 Range/Units 11:32 Urine Color Yellow Urine Appearance Clear Urine pH 8.0 (5.0-9.0) Ur Specific [place] 1.010 (1.005-1.025) Urine Protein Negative (Neg-Trace) mg/dL Urine Glucose (UA) Negative (Negative) mg/dL Abdomen CT scan report/results: report reviewed and image reviewed CT scan - pelvis: report reviewed and image reviewed Additional studies: Date of Service: 08/11/22 EXAMINATION: CT ABDOMEN AND PELVIS WITHOUT CONTRAST? CLINICAL INFORMATION: Reassess ureteral stents? COMPARISON: 08/09/2022 and 06/26/2018 TECHNIQUE: Multidetector volumetric imaging was performed from the superior aspect of the liver through the pubic symphysis. Sagittal and coronal reformatted images were obtained on the technologist's workstation.? This CT examination was performed using dose optimization techniques as appropriate, variously including the following: *Automated exposure control *Adjustment of mA and/or kV according to patient size (this includes techniques or standardized protocols for targeted exams where dose is matched to indication/reason for exam; i.e. extremities or head) *Use of iterative reconstruction technique DLP: 541 mGy-cm FINDINGS: LUNG BASES: Bibasilar subsegmental atelectasis.? LIVER, GALLBLADDER, AND BILIARY TREE: Diffuse hepatic steatosis. No focal liver lesions. No biliary dilatation. Cholelithiasis suspected. No pericholecystic inflammation.? PANCREAS: Unremarkable.? SPLEEN: Unremarkable.? ADRENAL GLANDS: Unremarkable.? KIDNEYS AND URETERS: A 4.5 mm stone in the proximal right ureter just distal to the ureteropelvic junction at the level of L3 has not changed in position from 08/09/2022. A 3 mm stone at the left ureterovesical junction is also unchanged in position. There is bilateral hydronephrosis, slightly worse from prior, moderate on the left and mild on the right, with associated left perinephric fat stranding. There are 2 additional nonobstructive calculi in the right kidney and one nonobstructive calculus in the left kidney. BLADDER: Unremarkable.? GASTROINTESTINAL TRACT: Gastric pneumatosis present. Remainder of the gastrointestinal tract unremarkable. Appendix not seen, however there is no evidence of appendicitis.? ABDOMINAL WALL: No significant hernia is appreciated.? LYMPH NODES: Normal. VASCULAR: Patent venous structures. PELVIC VISCERA: Mild prostatomegaly. Seminal vesicles unremarkable.? OSSEOUS STRUCTURES: No acute or suspicious osseous abnormalities.? IMPRESSION: *? No change in position of the distal left and proximal right ureteral calculi as described. *? Slightly worsened bilateral hydronephrosis, moderate left and mild right with accompanying perinephric fat stranding on the left. *? Incidental finding of gastric pneumatosis. Gastric pneumatosis can result from gastric emphysema, as can be seen with traumatic disruption of the mucosa, other forms of trauma or gastric outlet obstruction. Emphysematous gastritis is seen in setting of infection with a gas producing bacteria. Please correlate with lactate, CBC and clinical status to distinguish between the two possibilities. Also, we recommend a GI consult. *? Hepatic steatosis. Assessment and Plan (1) Bilateral ureteral calculi: Status: Acute (2) Hydronephrosis concurrent with and due to calculi of kidney and ureter: Status: Acute (3) Acute renal insufficiency: Status: Acute (4) Obstructive uropathy: Status: Acute Plan Plan for Cystoscopy, bilateral ureteroscopy, possible laser lithotripsy, bilateral ureteral stents. Risks discussed included but not limited to, possible need to repeat procedure if stone is not completely fragmented, Irritative voiding symptoms, bladder spasms, urgency, blood in urine. Time Spent With Patient Time: Total time managing care of this patient today ____ minutes. Quality Stroke Does the patient have a stroke diagnosis?: No VTE Prior VTE?: No VTE Risk Level:: Surgical - low VTE Device Contraindication: N/A - Device Ordered VTE Drug Contraindication: Treatment Not Indicated Procedures Date of Service Date of Service: 08/12/22
--- NOTE | 2022-08-11 16:34 | PC.NURSE ---
Report given to Kaylene on M3, pt to be transported to unit
[2022-08-11 17:09] VITALS: BP 116/72; PULSE 85; RESP 18; TEMP 36.6; O2SAT 99
[2022-08-11] MEDS: Lactated Ringers 1,000 ML 100 ML IVCONT (17:21)
[2022-08-11] MEDS: 0.9 % Sodium Chloride Flush 3 ML SYRINGE IVFLUSH (17:21)
[2022-08-11 17:35] VITALS: BMI 32.8
[2022-08-11] MEDS: HYDROmorphone HCl 1 MG/ML SYRINGE 0.5 MG IVPUSH (18:27)
[2022-08-11 19:34] VITALS: BP 125/79; PULSE 79; RESP 17; TEMP 36.1; O2SAT 95
[2022-08-12] VITALS (11 sets, daily range): BP systolic 100–140; BP diastolic 46–90; PULSE 68–90; RESP 12–20; TEMP 36.1–37.2; O2SAT 90–98
[2022-08-12] MEDS: HYDROmorphone HCl 1 MG/ML SYRINGE 0.5 MG IVPUSH ×3 (00:05→19:56)
[2022-08-12] MEDS: Lactated Ringers 1,000 ML 100 ML IVCONT ×2 (03:08→13:26)
--- NOTE | 2022-08-12 09:38 | MHC.CM.PN ---
MALE 47 DX RENAL INSUFFICIENCY W OBSTRUCTION Patient lives with S.O. He is independent with all functional mobility. Vaxxed for covid. Patient declined offer to document a HCP. DP home self care. Patient will transport via [facility] ([place] shuttle.
--- NOTE | 2022-08-12 17:27 | P.CONAN_ITS ---
HPI - Anesthesia Eval Consult details Narrative: Bilaterral distal ureter stones, hydronephrosis, acute renal insufficiency [facility] Active Problems Active Problems: All Active Problems (Updated 08/12/22 @ 16:45 by Shonna Alvarez MD) Obstructive uropathy (Acute) Acute renal insufficiency (Acute) Hydronephrosis concurrent with and due to calculi of kidney and ureter (Acute) Bilateral ureteral calculi (Acute) Past Medical History Medical History (Updated 08/12/22 @ 17:31 by Jeff Raya MD) Anxiety Asthma Family History Family history of problems with anesthesia: No Surgical History History of Problems with Anesthesia: No Social History Social History Household Members: Significant Other Housing: Apartment Do you presently have visiting nurse or other home services: No Alcohol intake: never Patient Tobacco Use Status: Never used Tobacco Use of substances other than those prescribed or required for medical reasons: No Currently Displaying Signs/Symptoms of Drug Intoxication Withdrawal: No Have you been hit, kicked, punched, or otherwise hurt by someone within the past year? If so, by whom?: No Do you feel safe in your current relationship?: Yes Is there a partner from a previous relationship who is making you feel unsafe now?: No Are you made to feel afraid or neglected: No Are you DNR?: No Advance Directives: No Advance Directives Information Provided: No Do you have thoughts of harming others: None Do you have a plan to hurt others: No Plan Recently lost weight without trying: No Eating poorly because of decreased appetite: No Nutrition Risks: No Nutritional Risk Poor oral hygiene: No service: No Current occupational status: disabled Meds Allergies Allergy/AdvReac Type Severity Reaction Status Date / Time No Known Allergies Allergy Verified 08/11/22 08:00 Active Medications: Current Medications Hydromorphone HCl (Hydromorphone Hcl 1 Mg/Ml Syringe) 0.5 mg IVPUSH Q3H PRN; Protocol PRN Reason: Pain, Severe (Pain Scale 7-10) Last Admin: 08/12/22 10:24 Dose: 0.5 mg Lactated Ringer's (Lr) 1,000 mls @ 100 mls/hr IVCONT .Q10H CORRINE Last Admin: 08/12/22 13:26 Dose: 100 mls/hr Pharmacy Consult (Consult Rx Perform Med Rec) 1 each MISCELLANE ONCE PRN PRN Reason: Consult order Sodium Chloride (0.9 % Sodium Chloride Flush 3 Ml Syringe) 3 ml IVFLUSH QSHIFT CORRINE Last Admin: 08/12/22 14:37 Dose: Not Given Home Medications Medication Instructions Recorded Confirmed Last Taken Type albuterol sulfate 90 mcg/actuation 2 puff inhalation Q6H PRN 08/11/22 08/11/22 Unknown History aerosol inhaler (Ventolin HFA) Shortness Of Breath Or Wheezing celecoxib 100 mg capsule (Celebrex) 200 mg PO DAILY PRN Pain 08/11/22 08/11/22 Unknown History clonazepam 0.5 mg tablet 0.5 mg PO BID PRN Anxiety 08/11/22 08/11/22 Unknown History diclofenac sodium 1 % topical gel 4 g topical QID 08/11/22 08/11/22 Unknown History famotidine 40 mg tablet 40 mg PO BEDTIME 08/11/22 08/11/22 Unknown History fluticasone propionate 110 2 puff inhalation BID 08/11/22 08/11/22 Unknown History mcg/actuation HFA aerosol inhaler fluticasone propionate 50 1 spray intranasal DAILY 08/11/22 08/11/22 Unknown History mcg/actuation nasal spray,suspension loratadine 10 mg tablet 10 mg PO BEDTIME PRN Allergic 08/11/22 08/11/22 Unknown History Reaction montelukast 10 mg tablet 10 mg PO BEDTIME 08/11/22 08/11/22 Unknown History (Singulair) pregabalin 200 mg capsule 200 mg PO TID 08/11/22 08/11/22 Unknown History sertraline 100 mg tablet 100 mg PO DAILY 08/11/22 08/11/22 Unknown History zolpidem 10 mg tablet 10 mg PO BEDTIME PRN Sleep 08/11/22 08/11/22 Unknown History Exam Exam Date and Time: August 12, 2022 1727 Height,Weight and Vital Signs: Height 5 ft 3 in Weight 84 kg Last Vital Signs Temp 98.5 F 08/12/22 16:30 Pulse 86 08/12/22 16:30 Resp 16 08/12/22 16:30 BP 138/89 08/12/22 16:30 Pulse Ox 98 08/12/22 16:30 O2 Del Method Room Air 08/12/22 16:30 Pertinent Lab Results Pertinent Lab Results: Laboratory Tests 08/11/22 08/11/22 08/11/22 08:13 08:13 11:32 WBC 8.4 RBC 5.78 Hgb 15.6 Hct 49.2 MCV 85.1 MCH 27.0 MCHC 31.7 RDW 14.1 Plt Count 219 MPV 10.9 Immature Gran % (Auto) 0.4 Neut % (Auto) 59.4 Lymph % (Auto) 28.3 [place] % (Auto) 8.7 Eos % (Auto) 2.7 Baso % (Auto) 0.5 Lymph # (Auto) 2.4 [place] # (Auto) 0.7 Eos # (Auto) 0.2 Baso # (Auto) 0.0 Abs Immat Gran (auto) 0.03 Absolute Neuts (auto) 5.0 Absolute Nucleated RBC 0.000 Nucleated RBC % (auto) 0.0 Sodium 146 H Potassium 4.7 Chloride 111 H Carbon Dioxide 26 Anion Gap 14 BUN 12 Creatinine 1.43 H Estim Creat Clear Calc 61.6 Estimated GFR 53 Random Glucose 138 H Lactic Acid Calcium 9.7 Urine Color Yellow Urine Appearance Clear Urine pH 8.0 Ur Specific [place] 1.010 Urine Protein Negative Urine Glucose (UA) Negative Urine Ketones Negative Urine Blood Trace H Urine Nitrite Negative Ur Leukocyte Esterase Negative Urine RBC 3-5 H Urine WBC 0-5 Ur Squamous Epith Cells 0-2 Urine Bacteria None Seen Hyaline Casts 0-2 08/11/22 14:58 WBC RBC Hgb Hct MCV MCH MCHC RDW Plt Count MPV Immature Gran % (Auto) Neut % (Auto) Lymph % (Auto) [place] % (Auto) Eos % (Auto) Baso % (Auto) Lymph # (Auto) [place] # (Auto) Eos # (Auto) Baso # (Auto) Abs Immat Gran (auto) Absolute Neuts (auto) Absolute Nucleated RBC Nucleated RBC % (auto) Sodium Potassium Chloride Carbon Dioxide Anion Gap BUN Creatinine Estim Creat Clear Calc Estimated GFR Random Glucose Lactic Acid 0.9 Calcium Urine Color Urine Appearance Urine pH Ur Specific [place] Urine Protein Urine Glucose (UA) Urine Ketones Urine Blood Urine Nitrite Ur Leukocyte Esterase Urine RBC Urine WBC Ur Squamous Epith Cells Urine Bacteria Hyaline Casts Airway Mallampati Class: II TM Dist: >3cm Neck ROM: Full Loose/Missing/Broken Teeth: No Heart: RRR Lungs: CTA Assessment and Plan Assessment Anesthesia Assessment: Anesthesia Plan Discussed Final Anesthetic Review Family History of Problems with Anesthesia: No History of Problems with Anesthesia: No NPO: Yes ASA Class: II and Emergency Final Preanesthetic Review: No Changes in Pt Med Stat, Meds/Allgs Chart Reviewed, Consent Obtained/Reviewed and Anes Risks/Benef Reviewed Patient Risk: Intermediate Procedure Risk: Low Anesthetic Plan Anesthetic Plan: GA Disposition: Standard PACU
--- NOTE | 2022-08-12 18:38 | W.PM.OPN ---
Operative Note Operative Note Date of Service: 08/12/22 Narrative: PreOperative Diagnosis:?? Right ureteral stone, proximal left ureteral stone, distal bilateral hydronephrosis Post Operative Diagnosis:?? right ureteral stone proximal, right hydronephrosis, left ureteral stone distal Procedure: Cystoscopy, RIGHT retrograde, right ureteral stent- 6 fr by Multi-length stent; LEFT retrograde, left ureteroscopy balloon dilation left intramural ureter, stone extraction left side Surgeon:?Dr Shonna Alvarez Anesthesia:? General Indications for procedure: Obstructive uropathy secondary to bilateral ureteral stones Procedure: After informed consent was verified the patient was brought to the operating placed on the OR table in supine position.? General Anesthesia was administered per protocol.? The patient was placed in lithotomy position, prepped and draped in the usual sterile fashion.? Safety pause time-out and side of surgery confirmed.? Antibiotics confirmed. 2% lidocaine jelly 10 mL was passed transurethrally. A 22 Bangl[place]hi cystoscope was inserted transurethrally, the bulbous urethra was within normal limits. The prostatic urethra was nonobstructive. The bladder was visualized.? Both ureteric orifices were in normal position. An open-ended ureteral catheter was passed into the right ureteral orifice and a retrograde examination was performed. There was a filling defect in the right proximal ureter and dilatation of the proximal ureter and renal pelvis and calyces. A guidewire was passed through the ureteral catheter into the kidney. A? 6 Bangl[place]hi by Multi-lenght cm stent was placed into the ureter and renal pelvis under a combination of fluoroscopy and direct visualization. An open-ended ureteral catheter was passed into the left ureteral orifice and a retrograde examination was performed. There was not significant dilatation noted. A guidewire was passed through the ureteral catheter into the kidney. The balloon dilator size 12 fr by 4 cm was passed over the guide -wire the balloon was inflated to 10 mmHg and the intramural ureter was dilated for 40 seconds. The balloon was deflated and removed. After removing the balloon dilator a 2nd guidewire was then passed into the kidney to use as a safety. The cystoscope was removed, leaving both guidewires in place. One guidewire was used as the safety and was attached to the draping. The semi rigid ureteroscope was passed over one of the guidewires to the level of the stone in the distal ureter. The 0 degree basket was passed through the ureteroscope, and the stone was removed to send for analysis. The ureteroscope was removed. The cystoscope was passed over the safety guidewire. The guide wire was removed. The bladder was emptied.? The rigid cystoscope was removed. ? The patient tolerated the procedure well and was brought to the recovery room in stable condition. Complications: None Drains: Right Ureteral stent as dictated above
--- NOTE | 2022-08-13 15:39 | MHC.CM.PN ---
Addendum entered by Emy Mendoza 08/13/22 15:41: DISCHARGE WAS 10PM 08/12/22 VIA UBER Original Note: PATIENT DISCHARGED TO HOME SELF CARE.
[2022-08-18 17:17] LABS: Stone Source LEFT URETERAL STONE
--- NOTE | 2022-12-22 20:59 | P.DS_ITS ---
DS: Providers Provider Date of Service: 08/12/22 Date of admission: 08/11/22 15:52 Date of discharge: 08/12/22 Primary care physician: WILL Calixto Admitting clinician: Shonna Alvarez Attending physician on admission: Shonna Alvarez Attending physician on discharge: Shonna Alvarez Discharging clinician: Shonna Alvarez DS: Diagnosis Discharge Diagnosis (1) Bilateral ureteral calculi: Status: Inactive (2) Hydronephrosis concurrent with and due to calculi of kidney and ureter: Status: Acute (3) Acute renal insufficiency: Status: Resolved (4) Obstructive uropathy: Status: Resolved DS: Summary Hospital Course Hospital Course: Vidal Ennis is a 47-year-old male admitted on 08/09/22 he has a h/o kidney stones and had been seen previously in the ED he was sent home with flomax but returned with worsening left flank pain radiating to left groin as well as nausea and vomiting.? He was admitted CT imaging noted a 6 mm partially obstructing calculi to right proximal ureter stone and a 5mm left distal ureter. Procedure during admission: Cystoscopy, RIGHT retrograde, right ureteral stent- 6 fr by Multi-length stent; LEFT retrograde, left ureteroscopy balloon dilation left intramural ureter, stone extraction left side. Status at Discharge Cognitive/behavioral status at discharge: Cognition normal Functional status at discharge: independent ambulation Overall status at discharge: patient is back to baseline Time Spent with Patient Time attestation: Total time managing care of this patient today ___38_ minutes. Discharge coordination time: Greater than 30 minutes Quality: Safe Use of Opioids Does Pt have an Active Cancer Diagnosis on the Problem List?: No Quality: Stroke Does the patient have a stroke diagnosis?: No Physical Exam Vital Signs: Vital Signs: Last Vital Signs Temp 97 F 08/12/22 19:28 Pulse 71 08/12/22 19:28 Resp 18 08/12/22 19:28 BP 140/88 H 08/12/22 19:28 Pulse Ox 96 08/12/22 19:28 O2 Del Method Room Air 08/12/22 19:28 O2 Flow Rate 2 08/12/22 18:59 BMI result Body Mass Index 32.8 DS: Data Data Completed and Pending Completed studies during hospitalization [Text1]: Pending at discharge 08/12/22 18:26 Surgical [PTH] Routine Procedures Dilation of Left Ureter, Via Natural or Artificial Opening Endoscopic (08/11/22) Dilation of Right Ureter with Intraluminal Device, Via Natural or Artificial Opening Endoscopic (08/11/22) Extirpation of Matter from Left Ureter, Via Natural or Artificial Opening Endoscopic (08/11/22) Fluoroscopy of Kidneys, Ureters and Bladder (08/11/22) Discharge Plan Discharge Anticipated Discharge Date/Time: 08/12/22 19:20 Patient Disposition: Home, Self-Care Discharge Diagnosis: Bilateral renal calculi, s/p right ureteral stent, s/p left ureteral stone extraction Referrals: Katie Harris PA [Primary Care Provider] - 1 Week Discharge Medications: Continued ibuprofen 600 mg tablet 600 mg PO TID PRN (Reason: pain) Qty: 14 0RF ondansetron 4 mg tablet,disintegrating 4 mg PO Q8H PRN (Reason: nausea and vomiting) Qty: 10 0RF oxycodone 5 mg tablet 5 mg PO Q8H PRN (Reason: pain) Qty: 10 0RF celecoxib [Celebrex] 100 mg Capsule 200 mg PO DAILY PRN (Reason: Pain) pregabalin 200 mg Capsule 200 mg PO TID clonazepam 0.5 mg Tablet 0.5 mg PO BID PRN (Reason: Anxiety) sertraline 100 mg Tablet 100 mg PO DAILY montelukast [Singulair] 10 mg Tablet 10 mg PO BEDTIME famotidine 40 mg Tablet 40 mg PO BEDTIME zolpidem 10 mg Tablet 10 mg PO BEDTIME PRN (Reason: Sleep) albuterol sulfate [Ventolin HFA] 90 mcg/actuation Hfa Aerosol Inhaler 2 puff INHALATION Q6H PRN (Reason: Shortness Of Breath Or Wheezing) fluticasone propionate 50 mcg/actuation [place],Suspension 1 spray INTRANASAL DAILY Rx Instructions: administer into each nostril loratadine 10 mg Tablet 10 mg PO BEDTIME PRN (Reason: Allergic Reaction) fluticasone propionate 110 mcg/actuation Hfa Aerosol Inhaler 2 puff INHALATION BID diclofenac sodium 1 % Gel 4 g TOPICAL QID Rx Instructions: apply to single knee, ankle, foot; for foot includes sole/toes/top of foot No Action hydromorphone [Dilaudid] 2 mg tablet 2 mg PO Q6H PRN (Reason: pain) Qty: 6 0RF Rx Instructions: Partial Fill upon patient request. phenazopyridine [Pyridium] 200 mg tablet 200 mg PO TID 30 Days Qty: 30 0RF tramadol 50 mg tablet 50 mg PO Q6H PRN (Reason: pain (scale score 1-3)) Qty: 8 0RF tamsulosin 0.4 mg capsule 0.4 mg PO BEDTIME 14 Days Qty: 14 0RF phenazopyridine [Pyridium] 100 mg tablet 100 mg PO TID PRN (Reason: Spasm) 4 Days Qty: 12 0RF naproxen 500 mg tablet 500 mg PO BID PRN (Reason: pain) 7 Days Qty: 14 0RF tamsulosin [Flomax] 0.4 mg capsule 0.4 mg PO BEDTIME Qty: 20 0RF Discharge Orders: Discharge Order (Routine); Ordered 08/12/22 Ordered By: Shonna Alvarez Diet: Advance to usual diet Activity on Discharge: As tolerated Stand Alone Forms: Patient Portal Discharge page Care Plan Goals: Follow up with Urology for stone management of right ureteral stone Health Concerns: Increase water intake, low sodium diet Plan of Treatment: Follow up with Urology for stone management of right ureteral stone Assessment: Bilateral renal calculi, s/p right ureteral stent, extraction left ureteral stone, stable Discharge Date/Time: 08/12/22 22:15
== END 2022-08-12 22:15 | disposition home or self-care (01) | DRG 443 ==
LOC: HO.ED 14:51 → HO.EDOVER 16:03 → HO.S3 16:05
PROVIDERS: Registered Nurse Emergency; Admitting Provider Urology; Emergency Provider Emergency Medicine; PCP Physician Assistant; Visit Provider Urology
PROC: 0T778ZZ Dilation of Left Ureter, Via Natural or Artificial Opening Endoscopic (ICD-10-PCS; principal; 2022-08-12 17:30)
PROC: 0T778ZZ Dilation of Left Ureter, Via Natural or Artificial Opening Endoscopic (ICD-10-PCS; 2022-08-12 17:30)
DX: N13.2 Hydronephrosis with renal and ureteral calculous obstruction (principal); F41.9 Anxiety disorder, unspecified; N28.9 Disorder of kidney and ureter, unspecified; J45.909 Unspecified asthma, uncomplicated; Z79.51 Long term (current) use of inhaled steroids; Z79.52 Long term (current) use of systemic steroids; Z79.899 Other long term (current) drug therapy
CPT/HCPCS: 36415; 74176; 80048; 81001; 82365; 83605; 85025; 88300; 99285; C1726; C1769; C2617; J0690; J1100; J1170; J1885; J2250; J2405; J2930; J3010; Q9967

== ENCOUNTER → 2022-08-11 15:52 | Outpatient (BNV) | payer MEDICAID, SELFPAY | PROVIDERS: Admitting Provider Urology; Emergency Provider Emergency Medicine; PCP Physician Assistant; Visit Provider Urology | DX: N13.2 Hydronephrosis with renal and ureteral calculous obstruction (principal); N28.9 Disorder of kidney and ureter, unspecified; N13.9 Obstructive and reflux uropathy, unspecified | CPT/HCPCS: 52332; 52352; 74420; 99222; 99239 ==

== ENCOUNTER 2022-08-20 14:04 | Outpatient (REF) | payer MEDICAID, SELFPAY ==
--- NOTE | ~2022-08-20 | XR_ITS ---
EXAMINATION: XR ABDOMEN KUB CLINICAL INDICATION: Calculus of kidney COMPARISON: CT abdomen and pelvis 08/11/2022 TECHNIQUE: AP view of the abdomen. FINDINGS: Since the prior CT scan, an internally dwelling double-J ureteral stent has been placed. The previously seen stone in the ureter can no longer be seen. Tiny calculi are present at the lower pole of each kidney which could be seen on the CT scan. Phleboliths are present in the pelvis. XR/XR KUB IMPRESSION: Interval placement of a double-J ureteral stent. The previously seen left ureteral stone is no longer seen. Bilateral nephrolithiasis better demonstrated on the CT scan.
== END 2022-08-20 14:05 | disposition home or self-care (01) ==
LOC: HO.XRAY 14:04
PROVIDERS: PCP Physician Assistant; Visit Provider Urology
DX: N20.0 Calculus of kidney (principal); Z96.0 Presence of urogenital implants
CPT/HCPCS: 74018

== ENCOUNTER → 2022-08-23 14:28 | Outpatient (BNVA) | payer MEDICAID, SELFPAY | PROVIDERS: PCP Physician Assistant; Visit Provider Urology ==

== ENCOUNTER 2022-09-01 06:50 | Day surgery (SDC) | payer MEDICAID, SELFPAY ==
--- NOTE | 2022-08-31 10:16 | P.CONAN_ITS ---
Documented by User: Adri Krishnan NP 08/31/22 10:18 HPI - Anesthesia Eval Consult details Narrative: 47yo M for Right ESWL with Stent Removal s/p cysto, etc 08/12/22 with GA-LMA 5 PMFSH Active Problems Active Problems: All Active Problems (Updated 08/23/22 @ 15:04 by Yu Alexander) Hydronephrosis (Acute) Ureteral stent present (Acute) Right renal stone (Acute) Hydronephrosis concurrent with and due to calculi of kidney and ureter (Acute) Past Medical History Medical History (Updated 09/01/22 @ 08:13 by Cee Butcher RN) Anxiety Arrhythmia Asthma Bilateral ureteral calculi Heart murmur Family History Family history of problems with anesthesia: No Surgical History History of Problems with Anesthesia: No Social History Social History Household Members: Significant Other Housing: Apartment Do you presently have visiting nurse or other home services: No Alcohol intake: never Patient Tobacco Use Status: Never used Tobacco Use of substances other than those prescribed or required for medical reasons: No Are you DNR?: No Advance Directives: No Advance Directives Information Provided: Yes Recently lost weight without trying: No Nutrition Risks: No Nutritional Risk service: No Current occupational status: disabled Meds Allergies Allergy/AdvReac Type Severity Reaction Status Date / Time seafood Allergy Anaphylaxis Verified 09/01/22 08:14 corn AdvReac Unknown Verified 09/01/22 08:14 Home Medications Medication Instructions Recorded Confirmed Last Taken Type albuterol sulfate 90 mcg/actuation 2 puff inhalation Q6H PRN 08/11/22 08/23/22 Unknown History aerosol inhaler (Ventolin HFA) Shortness Of Breath Or Wheezing celecoxib 100 mg capsule (Celebrex) 200 mg PO DAILY PRN Pain 08/11/22 08/23/22 Unknown History clonazepam 0.5 mg tablet 0.5 mg PO BID PRN Anxiety 08/11/22 08/23/22 Unknown History diclofenac sodium 1 % topical gel 4 g topical QID 08/11/22 08/23/22 Unknown History famotidine 40 mg tablet 40 mg PO BEDTIME 08/11/22 08/23/22 Unknown History fluticasone propionate 110 2 puff inhalation BID 08/11/22 08/23/22 Unknown History mcg/actuation HFA aerosol inhaler fluticasone propionate 50 1 spray intranasal DAILY 08/11/22 08/23/22 Unknown History mcg/actuation nasal spray,suspension loratadine 10 mg tablet 10 mg PO BEDTIME PRN Allergic 08/11/22 08/23/22 Unknown History Reaction montelukast 10 mg tablet 10 mg PO BEDTIME 08/11/22 08/23/22 Unknown History (Singulair) pregabalin 200 mg capsule 200 mg PO TID 08/11/22 08/23/22 Unknown History sertraline 100 mg tablet 100 mg PO DAILY 08/11/22 08/23/22 Unknown History zolpidem 10 mg tablet 10 mg PO BEDTIME PRN Sleep 08/11/22 08/23/22 Unknown Hist ory Exam Exam Date and Time: August 31, 2022 1016 Pertinent Lab Results Pertinent Lab Results: Laboratory Tests 08/11/22 08/11/22 08:13 08:13 WBC 8.4 Hgb 15.6 Hct 49.2 Plt Count 219 Sodium 146 H Potassium 4.7 Chloride 111 H Carbon Dioxide 26 BUN 12 Creatinine 1.43 H Assessment and Plan Assessment Anesthesia Assessment: Chart Reviewed Final Anesthetic Review Family History of Problems with Anesthesia: No History of Problems with Anesthesia: No Documented by User: Nory Rosen MD 09/01/22 10:36 [facility] Past Medical History Medical History (Updated 09/01/22 @ 08:13 by Cee Butcher RN) Anxiety Arrhythmia Asthma Bilateral ureteral calculi Heart murmur Social History Social History Household Members: Significant Other Housing: Apartment Do you presently have visiting nurse or other home services: No Alcohol intake: never Patient Tobacco Use Status: Never used Tobacco Use of substances other than those prescribed or required for medical reasons: No Are you DNR?: No Advance Directives: No Advance Directives Information Provided: Yes Recently lost weight without trying: No Nutrition Risks: No Nutritional Risk service: No Current occupational status: disabled Meds Allergies Allergy/AdvReac Type Severity Reaction Status Date / Time seafood Allergy Anaphylaxis Verified 09/01/22 08:14 corn AdvReac Unknown Verified 09/01/22 08:14 Home Medications Medication Instructions Recorded Confirmed Last Taken Type albuterol sulfate 90 mcg/actuation 2 puff inhalation Q6H PRN 08/11/22 08/23/22 Unknown History aerosol inhaler (Ventolin HFA) Shortness Of Breath Or Wheezing celecoxib 100 mg capsule (Celebrex) 200 mg PO DAILY PRN Pain 08/11/22 08/23/22 Unknown History clonazepam 0.5 mg tablet 0.5 mg PO BID PRN Anxiety 08/11/22 08/23/22 Unknown History diclofenac sodium 1 % topical gel 4 g topical QID 08/11/22 08/23/22 Unknown History famotidine 40 mg tablet 40 mg PO BEDTIME 08/11/22 08/23/22 Unknown History fluticasone propionate 110 2 puff inhalation BID 08/11/22 08/23/22 Unknown History mcg/actuation HFA aerosol inhaler fluticasone propionate 50 1 spray intranasal DAILY 08/11/22 08/23/22 Unknown History mcg/actuation nasal spray,suspension loratadine 10 mg tablet 10 mg PO BEDTIME PRN Allergic 08/11/22 08/23/22 Unknown History Reaction montelukast 10 mg tablet 10 mg PO BEDTIME 08/11/22 08/23/22 Unknown History (Singulair) pregabalin 200 mg capsule 200 mg PO TID 08/11/22 08/23/22 Unknown History sertraline 100 mg tablet 100 mg PO DAILY 08/11/22 08/23/22 Unknown History zolpidem 10 mg tablet 10 mg PO BEDTIME PRN Sleep 08/11/22 08/23/22 Unknown History Exam Airway Mallampati Class: II TM Dist: >3cm Neck ROM: Full Loose/Missing/Broken Teeth: No Heart: rr Lungs: cta Assessment and Plan Assessment Anesthesia Assessment: Anesthesia Plan Discussed Final Anesthetic Review NPO: Yes ASA Class: II Final Preanesthetic Review: No Changes in Pt Med Stat, Meds/Allgs Chart Reviewed, Consent Obtained/Reviewed and Anes Risks/Benef Reviewed Patient Risk: Low Procedure Risk: Low Anesthetic Plan Anesthetic Plan: MAC: Disposition: Standard PACU
--- NOTE | ~2022-09-01 | XR_ITS ---
EXAMINATION: XR ABDOMEN KUB CLINICAL INDICATION: Right kidney stone. COMPARISON: KUB dated August 30, 2022. CT scan dated August 11, 2022. TECHNIQUE: AP view of the abdomen. XR/XR KUB FINDINGS/IMPRESSION: The proximal loop of a presumed right double-J ureteral stent projects over the right renal pelvis, and the distal loop projects over the expected location of the urinary bladder. Overlying bowel contents limit evaluation for subtle urinary tract stone. The 4.5 mm stone in the proximal right ureter just distal to the ureteropelvic junction at the level of L3 identified on CT scan from August 11, 2022 is not well appreciated on the current plain film examination. The 3 mm stone at the left ureterovesical junction identified on that CT is also poorly evaluated on the current plain film study, not definitively identified apart from pelvic phleboliths. Previously described nonobstructing bilateral renal collecting system stones or suboptimally visualized on the current study as well. Approximately 3 mm stone may project over the lower pole of the right kidney. There is no evidence of intestinal obstruction or free air. No soft tissue mass or organomegaly is seen.
[2022-09-01 08:15] VITALS: BMI 31.9
[2022-09-01 08:57] VITALS: BP 133/98; PULSE 94; RESP 16; TEMP 36.8; O2SAT 96
[2022-09-01] MEDS: Lactated Ringers 1,000 ML 999 ML IV (09:08)
--- NOTE | 2022-09-01 10:37 | HO.ANESPROP2 ---
[facility] Active Problems Active Problems: All Active Problems (Updated 09/01/22 @ 08:13 by Cee Butcher RN) Hydronephrosis concurrent with and due to calculi of kidney and ureter (Acute) Right renal stone (Acute) Ureteral stent present (Acute) Hydronephrosis (Acute) Past Medical History Medical History (Updated 09/01/22 @ 08:13 by Cee Butcher RN) Anxiety Arrhythmia Asthma Bilateral ureteral calculi Heart murmur Family History Family history of problems with anesthesia: No Surgical History History of Problems with Anesthesia: No Social History Social History Household Members: Significant Other Housing: Apartment Do you presently have visiting nurse or other home services: No Alcohol intake: never Patient Tobacco Use Status: Never used Tobacco Use of substances other than those prescribed or required for medical reasons: No Are you DNR?: No Advance Directives: No Advance Directives Information Provided: Yes Recently lost weight without trying: No Nutrition Risks: No Nutritional Risk service: No Current occupational status: disabled Meds Allergies Allergy/AdvReac Type Severity Reaction Status Date / Time seafood Allergy Anaphylaxis Verified 09/01/22 08:14 corn AdvReac Unknown Verified 09/01/22 08:14 Active Medications: Current Medications Albuterol Sulfate (Albuterol Sulfate (0.083%) 2.5 Mg/3 Ml Vial.Neb) 2.5 mg INHALE ONCE PRN PRN Reason: Shortness of Breath/Wheezing Lactated Ringer's (Lr) 1,000 mls @ 100 mls/hr IVCONT .Q10H [facility] Home Medications Medication Instructions Recorded Confirmed Last Taken Type albuterol sulfate 90 mcg/actuation 2 puff inhalation Q6H PRN 08/11/22 08/23/22 Unknown History aerosol inhaler (Ventolin HFA) Shortness Of Breath Or Wheezing celecoxib 100 mg capsule (Celebrex) 200 mg PO DAILY PRN Pain 08/11/22 08/23/22 Unknown History clonazepam 0.5 mg tablet 0.5 mg PO BID PRN Anxiety 08/11/22 08/23/22 Unknown History diclofenac sodium 1 % topical gel 4 g topical QID 08/11/22 08/23/22 Unknown History famotidine 40 mg tablet 40 mg PO BEDTIME 08/11/22 08/23/22 Unknown History fluticasone propionate 110 2 puff inhalation BID 08/11/22 08/23/22 Unknown History mcg/actuation HFA aerosol inhaler fluticasone propionate 50 1 spray intranasal DAILY 08/11/22 08/23/22 Unknown History mcg/actuation nasal spray,suspension loratadine 10 mg tablet 10 mg PO BEDTIME PRN Allergic 08/11/22 08/23/22 Unknown History Reaction montelukast 10 mg tablet 10 mg PO BEDTIME 08/11/22 08/23/22 Unknown History (Singulair) pregabalin 200 mg capsule 200 mg PO TID 08/11/22 08/23/22 Unknown History sertraline 100 mg tablet 100 mg PO DAILY 08/11/22 08/23/22 Unknown History zolpidem 10 mg tablet 10 mg PO BEDTIME PRN Sleep 08/11/22 08/23/22 Unknown History Exam Exam Date and Time: September 01, 2022 1037 Height,Weight and Vital Signs: Height 5 ft 3 in Weight 81.647 kg Last Vital Signs Temp 98.3 F 09/01/22 08:57 Pulse 94 09/01/22 08:57 Resp 16 09/01/22 08:57 BP 133/98 H 09/01/22 08:57 Pulse Ox 96 09/01/22 08:57 O2 Del Method Room Air 09/01/22 08:57 Airway Mallampati Class: II TM Dist: >3cm Neck ROM: Full Heart: rr Lungs: cts Assessment and Plan Final Anesthetic Review Family History of Problems with Anesthesia: No History of Problems with Anesthesia: No NPO: Yes ASA Class: II Final Preanesthetic Review: No Changes in Pt Med Stat, Meds/Allgs Chart Reviewed, Consent Obtained/Reviewed and Anes Risks/Benef Reviewed Patient Risk: Low Procedure Risk: Low Anesthetic Plan Anesthetic Plan: GA Disposition: Standard PACU
--- NOTE | 2022-09-01 10:57 | W.PM.OPN ---
Operative Note Operative Note Date of Service: 09/01/22 Narrative: PreOperative Diagnosis: right Renal stones with stent Post Operative Diagnosis: right Renal stones Procedure: right ESWL with cysto stent removal Surgeon: Dr Jeff Wang Anesthesia: mac/sedation Indications for procedure: The patient understands ESWL may be a staged procedure and subsequent intervention may be required based on imaging after ESWL. Quoted stone clearance rates for a solitary procedure are in the 70-80% range based primarily on stone location. They also understand there is a risk of bleeding to the kidney, infection, damage to adjacent organs, and stone migration following the procedure. - Imaging right stone lower pole Procedure: After informed consent was verified the patient was brought to the operating room and placed in a supine position. Anesthesia was performed per protocol. Safety pause time-out was performed. Imaging was displayed in the room and laterality confirmed. ESWL was performed. The 1st 500 shocks were performed at 60 hertz. These were performed with increasing power. Once maximum power was reached the rate was increased to 180 hertz. A total of 2500 shocks were given. Targeted imaging with ultrasound/fluoroscopy showed stone smudging suggestive of disintegration. At completion of the procedure cysto performed. Stent seen and grasped and removed The patient tolerated the procedure well and was transferred to the recovery area upon completion. Post procedure imaging will be organized. There was no evidence for flank discoloration.
[2022-09-01 11:03] VITALS: BP 106/71; PULSE 83; RESP 16; TEMP 36.5; O2SAT 92
[2022-09-01 11:18] VITALS: BP 112/85; PULSE 72; RESP 18; TEMP 36.2; O2SAT 96
[2022-09-01] MEDS: traMADoL HCL 50 MG TABLET PO (11:18)
== END 2022-09-01 12:40 | disposition home or self-care (01) ==
PROVIDERS: PCP Physician Assistant; Visit Provider Urology
PROC: (CPT 50590; principal; 2022-09-01 08:20)
DX: N20.0 Calculus of kidney (principal); N13.30 Unspecified hydronephrosis; Z96.0 Presence of urogenital implants; N40.0 Benign prostatic hyperplasia without lower urinary tract symptoms; J45.909 Unspecified asthma, uncomplicated; F41.1 Generalized anxiety disorder; R01.1 Cardiac murmur, unspecified; Z79.1 Long term (current) use of non-steroidal anti-inflammatories (NSAID); Z79.51 Long term (current) use of inhaled steroids; Z79.899 Other long term (current) drug therapy
CPT/HCPCS: 50590; 52310; 74018; J0131; J1885; J1940; J3010

== ENCOUNTER 2023-01-13 17:56 | Outpatient (REF) | payer MEDICAID, SELFPAY | END 2023-01-13 17:57 | disposition home or self-care (01) | LOC: HO.HHCLNP 17:56 | PROVIDERS: Visit Provider Internal Medicine | DX: R30.9 Painful micturition, unspecified (principal) | CPT/HCPCS: 87086 ==

== ENCOUNTER 2023-06-09 13:58 | Outpatient (REF) | payer MEDICAID, SELFPAY ==
[2023-06-10 05:18] LABS: CT PCR NOT DETECTED (Not Detect.); NG PCR NOT DETECTED (Not Detect.)
== END 2023-06-09 13:59 | disposition home or self-care (01) ==
LOC: HO.HHCL 13:58
PROVIDERS: Visit Provider General Practice
DX: N50.811 Right testicular pain (principal)
CPT/HCPCS: 0353U

== ENCOUNTER 2023-06-23 10:34 | Outpatient (REF) | payer MEDICAID, SELFPAY ==
[2023-06-23 11:41] LABS: Hematocrit 48.8 % (42.0-52.0); Hemoglobin 15.7 g/dl (14.0-18.0); Mean Corpuscular HGB Conc 32.2 g/dl (31.0-36.0); Mean Corpuscular Hemoglobin 27.3 pg (27.0-33.0); Mean Corpuscular Volume 84.9 fL (80.0-98.0); Mean Platelet Volume 11.1 fL (9.4-12.4); Platelet Count 239 X10*3/uL (160-400); Red Blood Count 5.75 X10*6/uL (4.60-5.80); Red Cell Distribution Width 14.2 % (11.0-16.0); White Blood Count 4.4 X10*3/uL (4.8-10.8)
[2023-06-23 11:49] LABS: Estimated Average Glucose 126 mg/dL
[2023-06-23 11:59] LABS: Alanine Aminotransferase 20 U/L (0-40); Albumin Level 4.5 g/dL (3.5-5.0); Alkaline Phosphatase 88 U/L (39-117); Anion Gap 10 (12-20); Aspartate Amino Transferase 17 U/L (5-37); Bilirubin Direct 0.1 mg/dL (0.0-0.5); Bilirubin Total 0.4 mg/dL (0.0-1.0); Blood Urea Nitrogen 12 mg/dL (9-16); Calcium 10.6 mg/dL (8.4-10.2); Carbon Dioxide 28 mmol/L (22-29); Chloride 109 mmol/L (96-108); Cholesterol 228 mg/dL (<200); Estimated Glomerular Filt Rate > 60; Glucose Random 112 mg/dL (60-115); HDL Cholesterol 49 mg/dL (>40); LDL Cholesterol Calculated 146 mg/dL (<100); Sodium 143 mmol/L (135-145); Total Protein 7.8 g/dL (6.5-8.0); Triglycerides 167 mg/dL (<150)
[2023-06-23 12:23] LABS: Free T4 (Free Thyroxine) 0.86 ng/dL (0.71-1.85); Thyroid Stimulating Hormone 0.77 uIU/mL (0.32-4.0); Vitamin D 25-OH Total 49.3 ng/mL (>30)
[2023-06-24 03:38] LABS: HBc Num1 0.06 S/CO (0.00-0.79); HBsAGNum1 0.31 S/CO (0.00-0.99); HIV AB/AG Nonreactive (Nonreactive); HIV Num 1 0.05 S/CO (0.00-0.99); Hepatitis B Core Antibody Nonreactive (Nonreactive); Hepatitis B Surface Antigen Negative (Negative); ~HepC Num1 0.13 S/CO (0.00-0.79); ~Hepatitis B Surface Antibody REACTIVE (Nonreactive); ~Hepatitis C Antibody Nonreactive (Nonreactive)
[2023-06-24 03:42] LABS: Hepatitis A Antibody IgG Nonreactive (Nonreactive); ~Hepatitis A Antibody IgG 0.33 S/CO (0.00-0.99)
[2023-06-24 13:33] LABS: RPR Rapid Plasma Reagin NON-REACTIVE (NON-REACTIVE)
== END 2023-06-23 10:35 | disposition home or self-care (01) ==
LOC: HO.HHCL 10:34
PROVIDERS: Visit Provider Family Medicine
DX: Z00.00 Encounter for general adult medical examination without abnormal findings (principal); Z11.4 Encounter for screening for human immunodeficiency virus [HIV]
CPT/HCPCS: 36415; 80048; 80061; 80076; 82306; 83036; 84439; 84443; 85027; 86592; 86704; 86706; 86708; 86803; 87340; 87389

== ENCOUNTER 2023-06-29 14:43 | Outpatient (REF) | payer MEDICAID, SELFPAY ==
--- NOTE | ~2023-06-29 | US_ITS ---
EXAMINATION: US SCROTUM CLINICAL INFORMATION: Right lower quadrant pain radiating to the right testicle. COMPARISON: None available. TECHNIQUE: A sonogram of the scrotum was performed assessing harris-scale appearance and color Doppler flow. Spectral Doppler analysis of the arterial and venous flow were performed in the testes bilaterally. FINDINGS: RIGHT: Right testicle measures 4.5 x 1.9 x 2.6 cm, volume 11.6 mL. No focal testicular parenchymal lesions are visualized. Spectral Doppler analysis of the arterial and venous flow is normal in the right testis. Right epididymal head is normal in size. No right hydrocele or varicocele is seen. Right epididymal Doppler flow is normal. A 4 mm right extratesticular calcification ( scrotal igor ) is noted. LEFT: Left testicle measures 3.8 x 1.6 x 2.6 cm, volume 8.3 mL. No focal testicular parenchymal solid lesion is visualized. At the upper pole, a 3 mm simple cyst is of incidental note. Spectral Doppler analysis of the arterial and venous flow is normal in the left testis. Left epididymal head is normal in size. 3 mm and 4 mm left epididymal head cysts versus spermatoceles are seen. No left hydrocele is seen. There is a small amount of fluid medial to the left epididymal head. Left epididymal Doppler flow is normal. US/US scrotum IMPRESSION: 1. A 4 mm right extratesticular calcification ( scrotal igor ) is noted. 2. There are small left epididymal head cysts versus spermatoceles. 3. A small fluid collection is seen medial to the left epididymal head. 4. A 3 mm upper left testicular simple cyst is of incidental note. No testicular mass or torsion is seen bilaterally.
== END 2023-06-29 14:44 | disposition home or self-care (01) ==
LOC: HO.US 14:43
PROVIDERS: PCP General Practice; Visit Provider General Practice
DX: N50.811 Right testicular pain (principal)
CPT/HCPCS: 76870

== ENCOUNTER 2023-07-20 08:56 | Outpatient (REF) | payer MEDICAID, SELFPAY ==
--- NOTE | ~2023-07-20 | CT_ITS ---
EXAMINATION: CT ABDOMEN AND PELVIS WITHOUT CONTRAST CLINICAL INFORMATION: Right flank pain. COMPARISON: CT abdomen and pelvis 08/11/2020. TECHNIQUE: Multidetector volumetric imaging was performed from the superior aspect of the liver through the pubic symphysis. Sagittal and coronal reformatted images were obtained on the technologist's workstation. This CT examination was performed using dose optimization techniques as appropriate, variously including the following: *Automated exposure control *Adjustment of mA and/or kV according to patient size (this includes techniques or standardized protocols for targeted exams where dose is matched to indication/reason for exam; i.e. extremities or head) *Use of iterative reconstruction technique DLP: 407 mGy-cm FINDINGS: LUNG BASES: The visualized lung bases are unremarkable. LIVER, GALLBLADDER, AND BILIARY TREE: The liver is normal in size, shape, and attenuation. Previously seen hepatic steatosis is no longer present. No focal hepatic lesion or biliary ductal dilatation is present. The gallbladder is unremarkable with no evidence of radiopaque gallstones, gallbladder wall thickening, or obvious pericholecystic inflammatory changes. PANCREAS: Unremarkable. SPLEEN: Unremarkable. ADRENAL GLANDS: Unremarkable. KIDNEYS AND URETERS: The kidneys are normal in size, shape, and attenuation. There is bilateral nephrolithiasis, a 2 mm calculus at the right upper pole and some smaller barely visible right-sided punctate calculi and a 6 mm left mid renal calculus. Previously seen hydronephrosis secondary to bilateral ureteral calculi completely resolved. No hydronephrosis, hydroureter, or ureteral calculi seen. No renal masses. No perinephric stranding. BLADDER: Unremarkable. GASTROINTESTINAL TRACT: The small and large bowel are unremarkable. The appendix is not seen but there is no evidence of appendicitis. ABDOMINAL WALL: No significant hernia is appreciated. LYMPH NODES: Normal. VASCULAR: Unremarkable. PELVIC VISCERA: There is [id number] BPH. Seminal vesicles are normal. OSSEOUS STRUCTURES: Unremarkable. CT/CT abdomen pelvis wo IV con IMPRESSION: 1. Bilateral nonobstructing renal calculi. 2. Other incidental findings as described above. Fleischner guidelines were followed.
== END 2023-07-20 08:57 | disposition home or self-care (01) ==
LOC: HO.CT 08:56
PROVIDERS: PCP General Practice; Visit Provider General Practice
DX: N20.0 Calculus of kidney (principal)
CPT/HCPCS: 74176

== ENCOUNTER 2025-01-04 12:52 | Outpatient (AMB) | payer MEDICAID, SELFPAY ==
--- NOTE | 2025-01-04 13:18 | MHC.OFFVIS ---
Intake Visit Reasons: Nephrolithiasis HX of stones Intake Note: patient presents today for: nephtolithiasis hx of stones urology medications: tamsulosin, pyridium blood thinners: none Professor Of Practice Required: No Accompanied by: Self / Same As Patient Allergies seafood Allergy (Verified 01/04/25 13:19) Anaphylaxis corn Adverse Reaction (Verified 01/04/25 13:19) Unknown HPI Comments Details: 01/04/25--Vidal is a 49-year-old male who has a history of kidney stones was seen last 08/2022, had procedure by Dr Wang, lithotripsy for right kidney stone. History of Present Illness The patient is a 49-year-old male presenting with bilateral nephrolithiasis and associated symptoms. The patient has a history of kidney stones and underwent lithotripsy for a right kidney stone in August 2022. A CT scan 07/2023--revealed bilateral nephrolithiasis with a 2-mm calculus in the right upper pole and a 6-mm stone in the left kidney, both nonobstructing. The patient reports intermittent pain in the right side and testicular area, which began a couple of months ago and recurred during a recent stay in [place]. He states he had an ulltrasound of the prostate and was told there was mild inflammation, but no recent imaging was found in the records. Results - CT scan: 07/20/2023--Bilateral nephrolithiasis, 2-mm calculus in right upper pole, 6-mm stone in left kidney, nonobstructing Plan 1. Bilateral Nephrolithiasis - Prescribe tamsulosin to facilitate stone passage. - renal US - Encourage increased fluid intake to aid in stone passage. -Left ESWL for the 6-mm stone in the left kidney. [facility] Medical History Heart murmur Arrhythmia Anxiety Asthma Bilateral ureteral calculi Social History Household Members: Significant Other Housing: Apartment Do you presently have visiting nurse or other home services: No Alcohol intake: never Patient Tobacco Use Status: Never used Tobacco service: No Current occupational status: disabled Review of Systems Const All systems reviewed & are unremarkable except as noted in HPI and below Reports no additional complaints Eyes Reports no additional complaints ENT Reports no additional complaints Card Reports no additional complaints Resp Reports no additional complaints GI Reports no additional complaints Reports as per HPI Musc Reports no additional complaints Skin/Breast Reports system reviewed and no additional complaints, except as documented Neuro Reports no additional complaints Psych Reports no additional complaints Endo Reports no additional complaints Matthew/Lymph Reports no additional complaints Aller/Immun Reports no additional complaints Results AMB Urinalysis, Automated UA Leukoctes 0 Lila/uL Last Edit by ERICA Leiva on 01/04/25 13:27 UA Nitrite Last Edit by Pat Shirley [facility] on 01/04/25 13:27 UA Urobilinogen 0.2 mg/dL Last Edit by Pat Shirley [facility] on 01/04/25 13:27 UA Protein 0 mg/dL Last Edit by Pat Shirley [facility] on 01/04/25 13:27 UA pH 6.0 Last Edit by Pat Shirley [facility] on 01/04/25 13:27 UA Blood 0 Chad/uL Last Edit by Pat Shirley [facility] on 01/04/25 13:27 UA Specific [place] 1.010 Last Edit by Pat Shirley [facility] on 01/04/25 13:27 UA Ketone Negative Last Edit by Pat Shirley [facility] on 01/04/25 13:27 UA Bilirubin 0 mg/dL Last Edit by Pat Shirley [facility] on 01/04/25 13:27 UA Glucose 0 mg/dL Last Edit by Pat Shirley [facility] on 01/04/25 13:27 Results Reviewed Results Reviewed: Laboratory Last Values Urine pH (Auto) 6.0 01/04/25 13:27 Specific [place] (Auto) 1.010 01/04/25 13:27 Urine Protein (Auto) 0 mg/dL 01/04/25 13:27 Glucose (UA)(Auto) 0 mg/dL 01/04/25 13:27 Urine Ketones (Auto) Negative 01/04/25 13:27 Urine Blood (Auto) 0 Chad/uL 01/04/25 13:27 Urine Bilirubin (Auto) 0 mg/dL 01/04/25 13:27 Urine Urobilinogen (Auto) 0.2 mg/dL 01/04/25 13:27 Leukocyte Esterase (Auto) 0 Lila/uL 01/04/25 13:27 Date of Service: 07/20/23 CT ABDOMEN AND PELVIS WITHOUT CONTRAST CLINICAL INFORMATION: Right flank pain. COMPARISON: CT abdomen and pelvis 08/11/2020. TECHNIQUE: Multidetector volumetric imaging was performed from the superior aspect of the liver through the pubic symphysis. Sagittal and coronal reformatted images were obtained on the technologist's workstation. This CT examination was performed using dose optimization techniques as appropriate, variously including the following: *Automated exposure control *Adjustment of mA and/or kV according to patient size (this includes techniques or standardized protocols for targeted exams where dose is matched to indication/reason for exam; i.e. extremities or head) *Use of iterative reconstruction technique DLP: 407 mGy-cm FINDINGS: LUNG BASES: The visualized lung bases are unremarkable. LIVER, GALLBLADDER, AND BILIARY TREE: The liver is normal in size, shape, and attenuation. Previously seen hepatic steatosis is no longer present. No focal hepatic lesion or biliary ductal dilatation is present. The gallbladder is unremarkable with no evidence of radiopaque gallstones, gallbladder wall thickening, or obvious pericholecystic inflammatory changes. PANCREAS: Unremarkable. SPLEEN: Unremarkable. ADRENAL GLANDS: Unremarkable. KIDNEYS AND URETERS: The kidneys are normal in size, shape, and attenuation. There is bilateral nephrolithiasis, a 2 mm calculus at the right upper pole and some smaller barely visible right-sided punctate calculi and a 6 mm left mid renal calculus. Previously seen hydronephrosis secondary to bilateral ureteral calculi completely resolved. No hydronephrosis, hydroureter, or ureteral calculi seen. No renal masses. No perinephric stranding. BLADDER: Unremarkable. GASTROINTESTINAL TRACT: The small and large bowel are unremarkable. The appendix is not seen but there is no evidence of appendicitis. ABDOMINAL WALL: No significant hernia is appreciated. LYMPH NODES: Normal. VASCULAR: Unremarkable. PELVIC VISCERA: There is [id number] BPH. Seminal vesicles are normal. OSSEOUS STRUCTURES: Unremarkable. CT/CT abdomen pelvis wo IV con IMPRESSION: 1. Bilateral nonobstructing renal calculi. 2. Other incidental findings as described above. Assessment & Plan Assessment & Plan (1) Bilateral kidney stones: Code(s): N20.0 - Calculus of kidney Category: Medical (2) Right flank pain: Code(s): R10.9 - Unspecified abdominal pain Category: Medical Plan Plan 1. Bilateral Nephrolithiasis - Prescribe tamsulosin to facilitate stone passage. - renal US - Encourage increased fluid intake to aid in stone passage. -Left ESWL for the 6-mm stone in the left kidney. Orders: Orders US renal BI Today N20.0 - Calculus of kidney, R10.9 - Unspecified abdominal pain AMB Urinalysis Automated Today Z13.9 - Encounter for screening, unspecified Medications: Refilled tamsulosin (Flomax) 0.4 mg PO BEDTIME 20 caps 0RF Discontinued oxycodone Discontinued Reason: No Longer Medically Relevant 5 mg PO Q8H PRN 10 tabs 0RF pain naproxen Discontinued Reason: No Longer Medically Relevant 500 mg PO BID 7 days PRN 14 tabs 0RF pain phenazopyridine (Pyridium) Discontinued Reason: No Longer Medically Relevant 100 mg PO TID 4 days PRN 12 tabs 0RF Spasm ibuprofen Discontinued Reason: No Longer Medically Relevant 600 mg PO TID PRN 14 tabs 0RF pain ondansetron Discontinued Reason: No Longer Medically Relevant 4 mg PO Q8H PRN 10 tabs 0RF nausea and vomiting tamsulosin Discontinued Reason: Patient no longer taking 0.4 mg PO BEDTIME 14 days 14 caps 0RF tramadol Discontinued Reason: No Longer Medically Relevant 50 mg PO Q6H PRN 8 tabs 0RF pain (scale score 1-3) hydromorphone (Dilaudid) Partial Fill upon patient request. Discontinued Reason: No Longer Medically Relevant 2 mg PO Q6H PRN 6 tabs 0RF pain phenazopyridine (Pyridium) Discontinued Reason: No Longer Medically Relevant 200 mg PO TID 30 days 30 tabs 0RF pain Patient Instructions: The patient had an opportunity to ask questions regarding treatment plan. The patient expressed understanding and agreement with the above treatment plan. The patient is aware they should contact our office by phone for worsening of their current condition or the appearance of new symptoms. Compliance is encouraged with any medications and followup testing that is ordered. It is a privilege to be allowed the opportunity to participate in the urologic care of your patient. If you have any questions or concerns regarding treatment for the above conditions please do not hesitate to contact me. The office telephone contact is [phone]. This note is constructed in part using voice recognition software. While every effort has been made to ensure accuracy taper/finisher errors may have been included. Yours sincerely, Shonna Alvarez MD Scribe Plan - Not visible on output: Patient was informed and verbally consented to the use of an ambient scribe for clinic note documentation during this visit. Coding Level of Care Code Est Pt Level 4 (31273) Complex EM visit Add On G2211 Diagnoses Bilateral kidney stones N20.0 Right flank pain R10.9
--- OUTSIDE RECORDS SUMMARY | 2025-01-04 14:44 | XMS_ITS | Encounter Summary ---
Author Organization [employer] Address [address] [place] [address] Care Team Providers Care Folder Gluer Operator Name Role Phone Nancy Guy DO Primary Care Provider Reason for Visit * Reason Comments Med Refill Encounter Details Date Type Department Care Team (Late st Contact Info) Description 02/10/2023 Refill [facility] [address] [place], [place] [phone] Marilu August MD [address] [place] [address] Kidney stones Social History Tobacco Use Types Packs/Day Years Used Date Smoking Tobacco: Never Passive Smoke Exposure: Never Smokeless Tobacco: Never Sex and Gender Information Value Date Recorded Sex Assigned at Male 01/13/2023 3:19 PM EDT Legal Sex Male 1:20 PM EDT Gender Identity Male 06/23/2023 9:47 AM EDT Sexual Orientation Bisexual 01/13/2023 12 :46 PM EDT documented as of this encounter Plan of Treatment Not on file documented as of this encounter Visit Diagnoses Diagnosis Kidney stones Calculus of kidney documented in this encounter Care Teams Folder Gluer Operator Relationship Specialty Start Date End Date Nancy Guy DO [address], [place] [phone] PCP - General Family Medicine 06/23/23 documented as of this encounter
--- OUTSIDE RECORDS SUMMARY | 2025-01-04 14:44 | XMS_ITS | Clinical Summary ---
Author Organization [facility] Address [address] [place] [address] Care Team Providers Care Research Pharmacist Name Role Phone Katie Harris PA-C Primary Care Provider [phone] Source Comments PLEASE NOTE, if this patient is a minor, it may be UNLAWFUL to discuss sensitive information that is contained in these records (such as FAMILY PLANNING, MENTAL HEALTH or SUBSTANCE ABUSE) with the minor patient's parent or other person without the patient's specific authorization.[facility] Allergies No known active allergies Medications acetaminophen (TYLENOL 8 HOUR) 650 mg CR tabletIndication s:Community acquired pneumonia, unspecified laterality,Mild intermittent asthma with acute exacerbation Take 1 Tab by mouth every 8 (eight) hours as needed for pain 90 Tab 2 0 Active albuterol sulfate (PROVENTIL) 2.5 mg /3 mL (0.083 %) nebulizer solutionIndicati ons:Mild intermittent asthma with acute exacerbation,Com munity acquired pneumonia, unspecified laterality Take 3 mL by nebulization every 6 (six) hours 200 mL 4 0 Active ibuprofen 600 mg tablet TAKE 1 TABLET BY MOUTH THREE TIMES A DAY NEEDED PAIN 90 Tablet 2 1 Active diphenhydrAMINE (BENADRYL) 50 mg capsuleIndicatio ns:Allergic rhinitis, unspecified seasonality, unspecified trigger Take 1 Capsule by mouth nightly at bedtime as needed for rhinitis or allergies 90 Capsule 3 Active loratadine (ALLERGY RELIEF, LORATADINE,) 10 mg tabletIndication s:Mild intermittent asthma with acute exacerbation TAKE 1 TABLET BY MOUTH AT BEDTIME NEEDED ALLERGIES 90 Tablet 3 3 Active fluticasone (FLONASE) 50 mcg/actuation nasal sprayIndications :Allergic rhinitis, unspecified seasonality, unspecified trigger Place 1 [place] in both nostrils once daily 48 g 3 Active fluticasone (FLOVENT HFA) 110 mcg/actuation inhaler INHALE 2 PUFFS BY MOUTH INTO THE LUNGS TWICE A DAY 12 g 11 3 Active diclofenac sodium (VOLTAREN) 1 % gelIndications:C ostochondritis Apply 4gm qid to painful joint 100 g 5 3 Active FLOVENT HFA 110 mcg/actuation inhaler INHALE 2 PUFFS BY MOUTH INTO THE LUNGS TWICE A DAY 12 g 2 3 Active VENTOLIN HFA 90 mcg/actuation inhalerIndicatio ns:Mild intermittent asthma without complication INHALE 2 PUFFS INTO THE LUNGS EVERY SIX HOURS NEEDED SHORTNESS OF BREATH OR WHEEZING. 18 g 11 4 Active montelukast (SINGULAIR) 10 mg tabletIndication s:Mild intermittent asthma with acute exacerbation TAKE 1 TABLET BY MOUTH AT BEDTIME 90 Tablet 1 4 Active Active Problems Problem Noted Date Diagnosed Date Bilateral nephrolithiasis 01/10/2020 History of chest x-ray 08/14/2019 01/10/2020 Overview (01/10/2020): Result type: Chest 2 Views Frontal and Lat Result date: August 14, 2019 17:33 EDT Result status: Auth (Verified) Result title: XR Chest 2 Views Frontal and Lat Performed by: Erick Stone MD on August 14, 2019 17:36 EDT Verified by: Erick Stone MD on August 14, 2019 17:36 EDT Encounter info: [id number], [facility], [facility]ch [facility], 08/14/2019 - 08/14/2019 Reason For Exam Chest Pain;Other: RESULT: Chest 2 Views Frontal and Lat Chest 2 Views Frontal and Lat Reason: Other:; Chest Pain; Clinical Question(s): CHF; Special Instructions: COMPARISON: 07/09/2013 FINDINGS: LINES AND TUBES: None. LUNGS AND PLEURA: No acute process IMPRESSION: No acute abnormality. WSN: [id number] Ordering Physician: Frances Alex Signature Line Dictated By: Erick Stone MD Dictated Date/Time: 08/14/19 5:36 pm Reviewed By: Erick Stone MD Signed By: Erick Stone MD Signed Date/Time: 08/14/19 5:36 pm Transcribed By: VANI Transcribed Date/Time: 08/14/19 5:35 pm Chest 2 Views Frontal and Lat This document has an image Mild intermittent asthma with acute exacerbation 06/08/2019 Prediabetes 03/15/2019 Mixed hyperlipidemia 03/15/2019 Paresthesia of both feet 03/15/2019 History of appendectomy 03/13/2019 Overview (03/15/2019): Age 20 History of kidney stones 03/13/2019 Overweight (BMI 25.0-29.9) 03/13/2019 Hx of cardiac arrhythmia 03/13/2019 Overview (03/13/2019): 02/2019: Diagnosed 14 years ago Immunizations Immunization Administration Dates Next Due INFLUENZA, SEASONAL, INJECTABLE 01/07/2014 Moderna COVID-19 Vaccine, re d cap blue label, 12+ Primary Series 02/23/2021,07/29/2020,07/01/2020 PNEUMOCOCCAL POLYSACCHARIDE PPV23 (Pneumovax 23) 03/13/2019 TDAP 11/13/2011 Family History Medical History Relation Name Comments Heart Problems Father Hypertension Father Cancer Maternal Grandfather bone ca ncer Depression Mother Glaucoma Mother Hypertension Mother Other (See Comments) Mother neuropa thy Dementia Paternal Grandfather Diabetes Paternal Grandfather Parkinson's disease Paternal Grandfather Other (See Comments) Paternal Grandmother memory issyues Other (See Comments) Sister anorexi a Relation Name Status Comments Father Maternal Grandfather Mother Paternal Grandfather Paternal Grandmother Sister Social History Tobacco Use Types Packs/Day Years Used Date Smoking Tobacco: Never Cigarettes Smokeless Tobacco: Never Alcohol Use Standard Drinks/Week Comments Yes 0 (1 standard drink = 0.6 oz pur e alcohol) Social Connections Answer Date Recorded Connectedness 0 11/30/2023 Financial Resource Strain Answer Date R ecorded Financial Resource Strain 0 2018 Stress Answer Date Recorded Stress 0 03/13/2019 Physical Activity Answer Date Recorded Physical Activity 0 03/13/2019 Food Insecurity Answer Date Recorded Food 0 12/08/2023 Transportation Needs Answer Date Record ed Transportation 0 03/13/2019 Housing Stability Answer Date Recorded Housing 0 03/13/2019 Safety and Environment Answer Date Estevan rded Safety 0 03/13/2019 Utilities Answer Date Recorded Utilities 0 03/13/2019 Employment Answer Date Recorded Stress 0 11/30/2023 Sex and Gender Information Value Date Recorded Sex Assigned at Male 03/13/2019 6:30 AM PST Legal Sex Male 11:36 AM PDT Gender Identity Male 03/13/2019 6:30 AM PST Sexual Orientation Garcia 03/13/2019 6: 30 AM PST Last Filed Vital Signs Vital Sign Reading Time Taken Comments Blood Pressure 130/80 07/24/2020 9:49 AM EDT Pulse 97 07/24/2020 9:49 AM EDT Temperature 36.9 C (98.5 F) 07/24/2020 9:49 AM EDT Respiratory Rate 16 07/24/2020 9:49 AM EDT Oxygen Saturation 98% 07/24/2020 9:49 AM EDT Inhaled Oxygen Concentration - - Weight 78 kg (172 lb) 07/24/2020 9:49 AM EDT Height 160 cm (5' 3 ) 07/24/2020 9:49 AM EDT Body Mass Index 30.47 07/24/2020 9:49 AM EDT Plan of Treatment Health Maintenance Due Date Last Done Comments Anxiety Screening 1975 Tobacco Screening 1975 Imm-Hepatitis A (1 of 2 - Ri sk 2-dose series) 02/13/1996 Imm-Pneumococcal (2 of 2 - PCV) 03/13/2020 9 Annual Wellness (Adult): Ind icated (All Coverage) 03/20/2021 03/20/2020 Diabetes Screening 07/24/2021 07/24/2020, 1 , 11/28/2019, Additional history exists HIV Screening 07/24/2021 07/24/2020, 03/13/2019 Hypertension Screening (#1) 07/24/2021 Syphilis Screening 07/24/2021 07/24/2020 Imm-DTaP/Tdap/Td (2 - Td or Tdap) 11/12/[address] Colonography 2022 Colonoscopy 2022 Colorectal Cancer Screening 2022 FIT/gFOBT 2022 Fecal DNA 2022 Flexible Sigmoidoscopy 2022 Alcohol and Drug Screen 03/14/2024 07/25/19 21, 10/04/2019, 03/13/2019 Depression Annual Screen 03/14/2024 07/24/2020 [id number] ( season) 2024 02/23/2021, 07/29/2020, 07/01/2020 Imm-Influenza (#1) 2024 01/07/2014 Lipid Screening 11/27/2024 11/28/2019, 03/13/2019 Hepatitis B Screening Completed 01/10/2020 Hepatitis C Screening Completed 01/10/2020 Procedures Procedure Name Priority Date/Time Associated Diagnosis Comments HIV 1/2 AG & AB W/RFLX (4TH GEN) Routine 07/24/2020 10:08 AM EDT Chronic midline thoracic back pain Myalgia RPR W/RFLX TITER+FTA+CONF Routine 07/24/2020 10:08 AM EDT Chronic midline thoracic back pain Myalgia COMPREHENSIVE METABOLIC PANEL Routine 07/24/2020 10:08 AM EDT Chronic midline thoracic back pain Myalgia HEPATITIS A,B,C PANEL Routine 01/10/2020 10:50 AM EDT Rib pain Non-cardiac chest pain Bilateral flank pain LIPID PANEL Routine 11/28/2019 2:20 PM EDT Body aches from Last 3 Months or Most Recently Relevant to Health Maintenance Results * RPR W/RFLX TITER+FTA+CONF (07/24/2020 10:08 AM EDT) RPR (DX) W/REFL TITER AND CONFIRMATORY TESTING NON-REACT TRAY NON-REACT TRAY [employer] [facility] Blood Blood / Unknown 07/24/2020 1 0:08 AM EDT 07/24/2020 10:08 AM EDT Katie Harris PA-C LAB - BLOOD DRAW Final Resul t [employer] [facility] [address] [address], [employer] [facility] [address] [address] * (ABNORMAL) COMPREHENSIVE METABOLIC PANEL (07/24/2020 10:08 AM EDT) GLUCOSE 127(H) 65 - 99 mg/dL [facility] Comment: Fasting reference interval For someone without known diabetes, a glucose value >125 mg/dL indicates that they may have diabetes and this should be confirmed with a follow-up test. UREA NITROGEN (BUN) 13 7 - 25 mg/dL [facility] CREATININE (blood) 1.07 0.60 - 1.35 mg/dL [facility] GFR ESTIMATED 85 > OR = 60 mL/min/1 .73m2 [facility] EGFR 98 > OR = 60 mL/min/1 .73m2 [facility] BUN/CREATININE RATIO NOT APPLICABLE 6 - 22 [facility] SODIUM 139 135 - 146 mmol/L [employer] [facility] POTASSIUM 4.2 3.5 - 5.3 mmol/L [facility] CHLORIDE 103 98 - 110 mmol/L [facility] CARBON DIOXIDE 29 20 - 32 mmol/L [facility] CALCIUM 9.8 8.6 - 10.3 mg/dL [employer] PROTEIN, TOTAL 7.3 6.1 - 8.1 g/dL [employer] [facility] ALBUMIN 4.4 3.6 - 5.1 g/dL [employer] [facility] GLOBULIN 2.9 1.9 - 3.7 g/dL (calc) [employer] [facility] ALBUMIN/GLOBUL IN RATIO 1.5 1.0 - 2.5 (calc) [employer] [facility] BILIRUBIN, TOTAL 0.5 0.2 - 1.2 mg/dL [employer] [facility] ALKALINE PHOSPHATASE 81 36 - 130 U/L [facility] AST 26 10 - 40 U/L [facility] ALT 48(H) 9 - 46 U/L [employer] Blood Blood / Unknown 07/24/2020 1 0:08 AM EDT 07/24/2020 10:08 AM EDT us Katie Lukin PA-C LAB - BLOOD DRAW Final Resul t Performing Organization Address [facility]/ZIP Co de Phone Number [facility] [address] [address], [facility] [address] [address] * (ABNORMAL) HEPATITIS A,B,C PANEL (01/10/2020 10:50 AM EDT) HEPATITIS B SURFACE ANTIBODY POSITIVE(A) NEGATIVE [facility] HEPATITIS B SURFACE ANTIGEN NEGATIVE NEGATIVE [facility] Comment: Over the counter supplements containing high doses of biotin may interfere with this assay. If interference is suspected, patients shoud be retested after refraining from biotin supplements for 72 hours. HEPATITIS C VIRUS DIAGNOSTIC NEGATIVE NEGATIVE [facility] HEPATITIS A ANTIBODY TOTAL NEGATIVE NEGATIVE [facility] Comment: Over the counter supplements containing high doses of biotin may interfere with this assay. If interference is suspected, patients shoud be retested after refraining from biotin supplements for 72 hours. HEPATITIS B CORE ANTIBODY NEGATIVE NEGATIVE [facility] Blood Blood / Unknown 01/10/2020 1 0:50 AM EDT 01/10/2020 1:32 PM EDT Narrative [facility] - 01/10/2020 4:12 PM EDT [employer], a member of [address] [address] [employer] - Marilu Aguilar MD [place] [id number] ORD# [id number] Katie Harris PA-C LAB - BLOOD DRAW Edited Resu lt - Final [address] [address], * (ABNORMAL) LIPID PANEL (11/28/2019 2:20 PM EDT) CHOLESTEROL 226(H) 0 - 200 mg/dL [facility] TRIGLYCERIDES 257(H) 0 - 150 mg/dL [facility] HDL CHOLESTEROL 47 >40 mg/dL [facility] LDL CALCULATED 128(H) 0 - 100 mg/dL [facility] TC-HDLC RATIO 4.8(H) 0 - 4.4 mg/dL [facility] Blood specimen (specimen) Blood / Unknown 11/28/2019 2:20 PM EDT 11/28/2019 2:27 PM EDT Narrative [facility] - 11/28/2019 3:51 PM EDT [employer], a member of [address] [address] [employer] - Marilu Aguilar MD [place] ID [id number] ORD# [id number] Erick Tolbert PA-C LAB - BLOOD DRAW Final Result [address] [address], from Last 3 Months or Most Recently Relevant to Health Maintenance Insurance [employer] [facility] [employer] Care Teams Research Pharmacist Relationship Specialty Start Date End Date Katie Harris PA-C [address] [place] [phone] PCP - General Internal Medicine 09/07/18
--- OUTSIDE RECORDS SUMMARY | 2025-01-04 14:44 | XMS_ITS | Clinical Summary ---
Author Organization [employer] Address [address] [facility] [address] [place] [address] Care Team Providers Care Loom Overhauler Name Role Phone Nancy Guy DO Primary Care Provider [phone] Allergies No known active allergies Medications tamsulosin (Flomax) 0.4 MG 24 hr capsuleIndicati ons:Kidney stones Take 1 capsule (0.4 mg) by mouth in the morning. 15 capsule 01/13/2023 Active oxyCODONE (Roxicodone) 5 MG immediate release tablet TAKE 1 TABLET BY MOUTH EVERY 6 HOURS NEEDED FOR PAIN-NEED INS FOR CII 08/10/2022 Active Diclofenac Sodium 1 % gel Apply topically. Active celecoxib (CeleBREX) 200 MG capsule Take 200 mg by mouth 2 times daily. Active sertraline (Zoloft) 100 MG tablet Take 100 mg by mouth. Active zolpidem (Ambien) 10 MG tablet Take 10 mg by mouth if needed at bedtime for sleep. Active clonazePAM (KlonoPIN) 0.5 MG tablet Take 0.5 mg by mouth 2 times daily. Active pregabalin (Lyrica) 100 MG capsule Take 100 mg by mouth 2 times daily. Active amitriptyline (Elavil) 10 MG tablet Take 10 mg by mouth at bedtime. Active Active Problems Problem Noted Date Diagnosed Date Major depression, recurrent, chronic 08/01/2023 BMI 31.0-31.9,adult 08/01/2023 Fibromyalgia 06/23/2023 Hyperlipidemia 06/10/2023 Nephrolithiasis 01/13/2023 Assessment & Plan (06/10/2023 8:48 AM EDT): Repeat CMP for renal and liver function Repeat CT abd/pelvis to assess for stones and resolution of gastric pneumonitis Mild intermittent asthma 06/08/2019 Prediabetes 03/15/2019 History of appendectomy 03/13/2019 Overview (06/10/2023): Age 20 Hx of cardiac arrhythmia 03/13/2019 Overview (06/10/2023): 02/2019: Diagnosed 14 years ago Resolved Problems Problem Noted Date Diagnosed Date Resolved Date Elevated fasting glucose 06/10/202305/2023 Right flank pain 01/13/2023 08/01/2023 Assessment & Plan (01/13/2023 3:57 PM EDT): UA and culture done Possible recurrent kidney stone Drink plenty of water I pain persistent or worse go to the emergency room F/u with urology Testicular pain, right 01/13/202307/31 Assessment & Plan (06/10/2023 8:50 AM EDT): Will image with US for mass with FH Some pain/dysuria with sex, so assessed for STI with GC urine, NEG Assessment & Plan (01/13/2023 3:56 PM EDT): physical exam reassuring, possibly to kidney stone Elevated blood pressure reading 01/13/2023 06/15/2023 Assessment & Plan (01/13/2023 3:58 PM EDT): I advise weight reduction and low Na diet Monitor blood pressure if persistently high RTC F/u with PCP History of kidney stones 03/13/201905/2023 Encounters Date Type Department Care Team Description 11/04/2024 Orders Only [facility] [address] [place] [address] Nancy Guy DO Nephrolithiasis (Primary Dx); Palpitations from Last 3 Months Immunizations Immunization Administration Dates Next Due Influenza, IIV3, injectable 01/07/2014 Pneumococcal Polysaccharide PPSV23 03/13/2019 Tdap 11/13/2011 Family History Medical History Relation Name Comments Heart disease Father Hypertension Father Prostate cancer Maternal Grandfather Arthritis Maternal Grandmother Arthritis Mother Diabetes Mother Fibromyalgia Mother Hypertension Mother Dementia Paternal Grandmother Relation Name Status Comments Father Maternal Grandfather Maternal Grandmother Mother Paternal Grandmother Social History Tobacco Use Types Packs/Day Years Used Date Smoking Tobacco: Never Passive Smoke Exposure: Never Smokeless Tobacco: Never Tobacco Cessation:Counseling Given: Not Answered Depression Answer Date Recorded Patient Health Questionnaire-9 Score 12 06/23/2023 Patient Health Questionnaire-9 Score 12 06/23/2023 Last PHQ-9: Questionnaire Data Not on file 0 06/23/2023 Housing Stability Answer Date Recorded What is your housing situation today? I have sandy luis 06/14/[address] you li ve. Do you have problems with any of the following? None of the above 06/14/2023 Food Insecurity Answer Date Recorded Within the past 12 months, y ou worried that your food would run out before you got money to buy more: Never True 06/14/2023 Within the past 12 months,th e food you bought just didn't last and you didn't have enough money to get more: Never True 04/2023 Transportation Answer Date Recorded In the past 12 months, has l ack of transportation kept you from medical appts, meetings, work or from getting things needed for daily living? No 06/14/2023 Utilities Answer Date Recorded In the past 12 months, has t he electric, gas, oil or water company threatened to shut off services in your home? No 06/14/2023 Depression Answer Date Recorded Patient Health Questionnaire-2 Score 2 06/23/2023 Sex and Gender Information Value Date Recorded Sex Assigned at Male 01/13/2023 3:19 PM EDT Legal Sex Male 1:20 PM EDT Gender Identity Male 06/23/2023 9:47 AM EDT Sexual Orientation Bisexual 01/13/2023 12 :46 PM EDT Last Filed Vital Signs Vital Sign Reading Time Taken Comments Blood Pressure 138/84 06/23/2023 9:47 AM EDT Pulse 90 06/23/2023 9:08 AM EDT Temperature 36.7 C (98 F) 06/23/2023 9:08 AM EDT Respiratory Rate 18 06/23/2023 9:08 AM EDT Oxygen Saturation 99% 06/23/2023 9:08 AM EDT Inhaled Oxygen Concentration - - Weight 80.6 kg (177 lb 9.6 oz) 06/23/2023 9:08 A M EDT Height 160 cm (5' 3 ) 06/23/2023 9:08 AM EDT Body Mass Index 31.46 06/23/2023 9:08 AM EDT Plan of Treatment Health Maintenance Due Date Last Done Comments CT Colonography 1977 Colonoscopy 1977 Colorectal Cancer Screening 1977 FIT DNA/Cologuard 1977 FIT 1977 FOBT 1977 Sigmoidoscopy 1977 Disability Screening 1977 Alcohol/Substance Use Screening 1989 Family Planning (PISQ) 02/13/1992 Hepatitis B Vaccines (1 of 3 - 19+ 3-dose series) 02/13/1996 Pneumococcal Vaccine: Pediatrics (0 to 5 Years) and At-Risk Patients (6 to 49) Years (2 of 2 - PCV) 03/13/2020 03/13/2019 DTaP/Tdap/Td Vaccines (2 - T d or Tdap) 11/12/2021 11/13/2011 Depression Monitoring 12/23/2023 06/23/2023 , 06/23/2023 SDOH Screening 06/13/2024 06/14/2023 Diabetes: Hemoglobin A1C 06/22/2024 06/23/2023 Tobacco Screening 07/31/2024 08/01/2023 COVID-19 Vaccine (4 - 2024-2 6 season) 2024 02/23/2021, 07/29/2020, 07/01/2020 Influenza Vaccine (#1) 2024 01/07/2014 Zoster Vaccines (1 of 2) 2027 Lipid Panel 06/22/2028 06/23/2023 RSV Patients and Patients Aged 60 years or older (1 - 1-dose 75+ series) 02/13/2052 HIV Screening Completed 06/23/2023, 07/24/2020, 03/13/2019 Hepatitis C Screening Completed 06/23/2023 HIB Vaccines Aged Out No longer eligi ble based on patient's age to complete this topic HPV Vaccines Aged Out No longer eligi ble based on patient's age to complete this topic Hepatitis A Vaccines Aged Out No long er eligible based on patient's age to complete this topic IPV Vaccines Aged Out No longer eligi ble based on patient's age to complete this topic Meningococcal B Vaccine Aged Out No l onger eligible based on patient's age to complete this topic Meningococcal Vaccine Aged Out No blanca nohemi eligible based on patient's age to complete this topic RSV under 20 months Aged Out No longe r eligible based on patient's age to complete this topic Rotavirus Vaccines Aged Out No longer eligible based on patient's age to complete this topic Procedures Procedure Name Priority Date/Time Associated Diagnosis Comments HEPATITIS C AB W/REFL TO HCV RNA, QN, PCR Routine 06/23/2023 10:38 AM EDT Routine history and physical examination of adult HIV 1/2 ANTIGEN/ANTIBODY, FOURTH GENERATION W/RFL Routine 06/23/2023 10:38 AM EDT Routine history and physical examination of adult HEMOGLOBIN A1C Routine 06/23/2023 10:38 AM EDT Routine history and physical examination of adult LIPID PANEL, STANDARD Routine 06/23/2023 10:38 AM EDT Routine history and physical examination of adult from Last 3 Months or Most Recently Relevant to Health Maintenance Results * Hepatitis C Antibody with Reflex to HCV, RNA, Quantitative, Real-Time PCR (06/23/2023 10:38 AM EDT) Hepatitis C Antibody Nonreactive Nonreactive [facility] Comment:Antibodies to HCV no t detected; does not exclude early acuteHCV infection. Blood Venous blood specimen / Unknown 06/23/2023 10:38 AM EDT 06/23/2023 11:27 AM EDT us Nancy Guy DO LAB BLOOD ORDERABLES Final R esult [facility] [address] [place] [phone] * HIV-1/2 Antigen and Antibodies, Fourth Generation, with Reflexes (06/23/2023 10:38 AM EDT) HIV AB/AG Nonreactive Nonreactive [facility] Comment:HIV-1 p24 Ag and/or HIV-1/HIV-2 Ab not detected.A test result that is nonreactive does not exclude thepossibility of exposure to or infection with HIV-1 and/orHIV-2. Nonreactive results in this assay for individualswith prior exposure to HIV-1 and/or HIV-2 may be due toantigen and antibody levels that are below the limit ofdetection of this assay.The Bambisa HIV Ag/Ab Combo assay result andsupplemental assay results should be interpreted inconjunction with the patient's clinical presentation,history and other laboratory results. If the results areinconsistent with clinical evidence, additional testing issuggested to confirm the result. Blood Venous blood specimen / Unknown 06/23/2023 10:38 AM EDT 06/23/2023 11:27 AM EDT us Nancy Guy DO LAB BLOOD ORDERABLES Final R esult [facility] [address] [place] [phone] * Hemoglobin A1c (06/23/2023 10:38 AM EDT) Hemoglobin A1c 6.0 <6.0 % [facility] Comment:Hemoglobin A1C Refer ence Range Adults: 4.8 - 6.0 % Non diabetic: < 6.0 % Goal: < 7.0 %Additional Action Suggested: > 8.0 %Note: Hemoglobin A1c results are invalid for patients with abnormal amounts of HbF. Blood transfusions may impact the HbA1c concentration in the patient sample. Estimated Average Glucose 126 mg/dL [facility] Comment:eAG = Estimated ave rage glucose which is %A1C expressed asaverage glucose, using the formula of the X5T-[id number] Glucose study (ADAG), Diabetes Care, Vol.31,#8,Oct. 2007 Blood Venous blood specimen / Unknown 06/23/2023 10:38 AM EDT 06/23/2023 11:21 AM EDT us Nancy Guy DO LAB BLOOD ORDERABLES Final R esult Performing Organization Address City/[facility]/ZIP Co de Phone Number [facility] [address] [place] [phone] * (ABNORMAL) Lipid Panel, Standard (06/23/2023 10:38 AM EDT) Triglycerides 167(H) <150 mg/dL [facility] Comment:Desirable Triglyceri de: less than 150 mg/dLBorderline High Triglyceride 150-199 mg/dLHigh Triglyceride: 200-499 mg/dLVery High Triglyceride: greater than or equal to 5OO mg/dL Cholesterol 228(H) <200 mg/dL [facility] Comment:Desirable Cholestero l: less than 200 mg/dLBorderline High Cholesterol: 200-239 mg/dLHigh Cholesterol: greater than 239 mg/dL LDL Cholesterol Calculated 146(H) <100 mg/dL [facility] Comment:Desirable LDL: less than 100 mg/dLNear Optimal/Above Optimal LDL: 110- 129 mg/dLBorderline High LDL: 130-159 mg/dLHigh LDL: 160-189 mg/dLVery High LDL: greater than or equal to 190 mg/dL HDL Cholesterol 49 >40 mg/dL [facility] Comment:Desirable HDL: great er than 40 mg/dL Note: This HDL assay may give artificially low results in patients with liver disease. Blood Venous blood specimen / Unknown 06/23/2023 10:38 AM EDT 06/23/2023 11:27 AM EDT us Nancy Guy DO LAB BLOOD ORDERABLES Final R esult [facility] [address] [place] [phone] from Last 3 Months or Most Recently Relevant to Health Maintenance Insurance [employer] Care Teams Loom Overhauler Relationship Specialty Start Date End Date Nancy Guy DO [address] [place] [address] PCP - General Family Medicine 06/23/23
== END 2025-01-04 13:56 | disposition home or self-care (01) ==
LOC: HO.HUSH 12:53
PROVIDERS: PCP General Practice; Visit Provider Urology
DX: N20.0 Calculus of kidney (principal); R10.9 Unspecified abdominal pain; Z13.9 Encounter for screening, unspecified
CPT/HCPCS: 99214

== ENCOUNTER → 2025-01-04 12:52 | Outpatient (BNVA) | payer MEDICAID, SELFPAY | PROVIDERS: PCP General Practice; Visit Provider Urology | DX: N20.0 Calculus of kidney (principal); R10.9 Unspecified abdominal pain; Z13.9 Encounter for screening, unspecified | CPT/HCPCS: 81003; 99212 ==

== ENCOUNTER 2025-01-22 11:17 | Outpatient (REF) | payer MEDICAID, SELFPAY ==
--- OUTSIDE RECORDS SUMMARY | 2025-01-22 11:30 | XMS_ITS | Encounter Summary ---
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 Name Role Phone Nancy Guy DO Primary Care Provider [phone] Reason for Visit * Reason Comments Multiple concerns Encounter Details Date Type Department Care Team ([facility] Contact Info) Description 01/22/2025 11:30 AM EST Office Visit [facility] [address] [place], [place] [phone] Nancy Guy DO [address] [place] [address] Prediabetes (Primary Dx); Encounter for immunization; Kidney stones Social History Tobacco Use Types Packs/Day Years Used Date Smoking Tobacco: Never Passive Smoke Exposure: Never Smokeless Tobacco: Never Tobacco Cessation:Counseling Given: Not Answered Depression Answer Date Recorded Patient Health Questionnaire-9 Score 16 01/22/2025 Patient Health Questionnaire-9 Score 16 01/22/2025 Last PHQ-9: Questionnaire Data Not on file 1 03/24/2024 Housing Stability Answer Date Recorded What is your housing situation today? I have sandy luis 01/15/[address] you li ve. Do you have problems with any of the following? None of the above 01/15/2025 Food Insecurity Answer Date Recorded Within the past 12 months, y ou worried that your food would run out before you got money to buy more: Sometimes True 2024 Within the past 12 months,th e food you bought just didn't last and you didn't have enough money to get more: Sometimes True 01/15/2025 Transportation Answer Date Recorded In the past 12 months, has l ack of transportation kept you from medical appts, meetings, work or from getting things needed for daily living? No 01/15/2025 Utilities Answer Date Recorded In the past 12 months, has t he electric, gas, oil or water company threatened to shut off services in your home? No 01/15/2025 Depression Answer Date Recorded Patient Health Questionnaire-2 Score 4 01/22/2025 Internet Access Answer Date Recorded Internet Access Q1 Yes 01/15/2025 Internet Access Q2 Not on file 01/15/2025 Sex and Gender Information Value Date Recorded Sex Assigned at Male 01/13/2023 3:19 PM EDT Legal Sex Male 1:20 PM EDT Gender Identity Male 06/23/2023 9:47 AM EDT Sexual Orientation Bisexual 01/13/2023 12 :46 PM EDT documented as of this encounter Last Filed Vital Signs Vital Sign Reading Time Taken Comments Blood Pressure 126/82 01/22/2025 10:38 AM EST Pulse 88 01/22/2025 10:38 AM EST Temperature 36.1 C (96.9 F) 01/22/2025 10:38 AM EST Respiratory Rate 18 01/22/2025 10:38 AM EST Oxygen Saturation - - Inhaled Oxygen Concentration - - Weight 77 kg (169 lb 12.8 oz) 01/22/2025 10:38 A M EST Height 160 cm (5' 3 ) 01/22/2025 10:38 AM EST Body Mass Index 30.08 01/22/2025 10:38 AM EST documented in this encounter Functional Status * Over the past 2 weeks, how often have you been bothered by any of the following problems? Question Answer Date of Assessment Author Patient Health Questionnaire -2 Score 4 01/22/2025 11:00 AM EST Winter Storey [place] * Little interest or pleasure in doing things Answer Date of Assessment Author More than half the days 01/22/2025 11:00 AM EST Winter Storey [place] * Feeling down, depressed, or hopeless Answer Date of Assessment Author More than half the days 01/22/2025 11:00 AM EST Winter Storey [place] * Trouble falling or staying asleep, or sleeping too much Answer Date of Assessment Author Nearly every day 01/22/2025 11:00 AM Winter Beltre [place] * Feeling tired or having little energy Answer Date of Assessment Author More than half the days 01/22/2025 11:00 AM [place] Beltre [place] * Poor appetite or overeating Answer Date of Assessment Author More than half the days 01/22/2025 11:00 AM Winter [place]re [place] * Feeling bad about yourself - or that you are a failure or have let yourself or your family down Answer Date of Assessment Author More than half the days 01/22/2025 11:00 AM Winter Beltre [place] * Trouble concentrating on things, such as reading the newspaper or watching television Answer Date of Assessment Author Several days 01/22/2025 11:00 AM Winter Beltre [place] * Moving or speaking so slowly that other people could have noticed? Or the opposite - being so fidgety or restless that you have been moving around a lot more than usual. Answer Date of Assessment Author Several days 01/22/2025 11:00 AM Winter Beltre [place] * Thoughts that you would be better off or hurting yourself in some way Answer Date of Assessment Author Several days 01/22/2025 11:00 AM Winter Beltre [place] * Patient Health Questionnaire-9 Score Answer Date of Assessment Author 16 01/22/2025 11:00 AM Winter Beltre [place] * How difficult have these problems made it for you to do your work, take care of things at home, or get along with other people? Answer Date of Assessment Author Very difficult 01/22/2025 11:00 AM Winter Beltre [place] * Over the last 2 weeks, how often have you been bothered by any of the following problems? Question Answer Date of Assessment Author Feeling nervous, anxious, or on edge 1 01/22/2025 11:00 AM Winter Beltre [place] Not being able to stop or co ntrol worrying 1 01/22/2025 11:00 AM Winter Beltre [place] Worrying too much about diff erent things 1 01/22/2025 11:00 AM Winter [place]re [place] Trouble relaxing 1 01/22/2025 11:00 AM [place] Being so restless that it is hard to sit still 1 01/22/2025 11:00 AM Winter Beltre [place] Becoming easily annoyed or irritable 1 01/22/2025 11:00 AM Winter Beltre [place] Feeling afraid as if somethi ng awful might happen 1 01/22/2025 11:00 AM Winter Beltre [place] SHON-7 Total Score 7 01/22/2025 11:00 AM Winter Beltre [place] documented as of this encounter Plan of Treatment Scheduled Orders Name Type Priority Associated Diagnoses Orde r Schedule T4, Free Lab Routine Prediabetes Expected: 01/22/2025 (Approximate), Expires: 01/22/2026 Lipid Panel, Standard Lab Routine Prediabetes Expected: 01/22/2025 (Approximate), Expires: 01/22/2026 TSH Lab Routine Prediabetes Expected: 01/22/2025 (Approximate), Expires: 01/22/2026 Vitamin D, 25-Hydroxy, Total, Immunoassay Lab Routine Prediabetes Expected: 01/22/2025 (Approximate), Expires: 01/22/2026 Hepatic Function Panel Lab Routine Prediabetes Expected: 01/22/2025 (Approximate), Expires: 01/22/2026 Hemoglobin A1c Lab Routine Prediabetes Expected: 01/22/2025 (Approximate), Expires: 01/22/2026 Basic Metabolic Panel Lab Routine Prediabetes Expected: 01/22/2025 (Approximate), Expires: 01/22/2026 Hepatitis B surface antigen, EIA Lab Routine Prediabetes Expected: 01/22/2025 (Approximate), Expires: 01/22/2026 Chlamydia/N. Gonorrhoeae RNA, TMA, Urogenitial Microbiology Routine Prediabetes Ordered: 01/22/2025 HIV-1/2 Antigen and Antibodies, Fourth Generation, with Reflexes Lab Routine Prediabetes Expected: 01/22/2025 (Approximate), Expires: 01/22/2026 Hepatitis C Antibody with Reflex to HCV, RNA, Quantitative, Real-Time PCR Lab Routine Prediabetes Expected: 01/22/2025, Expires: 01/22/2026 RPR (Monitor) with Reflex to Titer Lab Routine Prediabetes Expected: 01/22/2025, Expires: 01/22/2026 Hepatitis B Surface Antibody, Qualitative Lab Routine Prediabetes Expected: 01/22/2025 (Approximate), Expires: 01/22/2026 CBC auto differential Lab Routine Prediabetes Expected: 01/22/2025 (Approximate), Expires: 01/22/2026 documented as of this encounter Procedures Procedure Name Priority Date/Time Associated Diagnosis Comments POCT GLUCOSE Routine 01/22/2025 10:43 AM EST Prediabetes POCT GLYCATED HEMOGLOBIN, TOTAL Routine 01/22/2025 10:42 AM EST Prediabetes documented in this encounter Results * POCT Glucose (01/22/2025 10:43 AM EST) Glucose Blood, POC 98 60 - 200 mg/dL QC Media Lot # [id number] Lot# Expiration Date Blood Capillary blood specimen / Unknown 01/22/2025 10:43 AM EST Nancy Guy DO POINT OF CARE TEST ENTER/ANDRIY T ORDERABLES Final Result * (ABNORMAL) POCT Hgb A1c (01/22/2025 10:42 AM EST) Hemoglobin A1C 6.0(A) 4.0 - 5.7 % Philtro Lot # [id number] Lot# Expiration Date [id number] Blood 01/22/2025 10:4 2 AM EST Nancy Guy DO POINT OF CARE TEST ENTER/ANDRIY T ORDERABLES Final Result documented in this encounter Visit Diagnoses Diagnosis Prediabetes- Primary Other abnormal glucose Encounter for immunization Kidney stones Calculus of kidney documented in this encounter Additional Health Concerns Assessment Noted Time PHQ-9 Depression Total Score: 16 025 11:00 AM EST documented as of this encounter Care Teams Hardboard Coating Machine Operator Relationship Specialty Start Date End Date Nancy Guy DO [address] [place] [address] PCP - General Family Medicine 06/23/23 documented as of this encounter
--- OUTSIDE RECORDS SUMMARY | 2025-01-22 13:30 | XMS_ITS | Clinical Summary ---
Author Organization [facility] Address [address] [place] [address] Care Team Providers Care Traveling Repair Accountant Name Role Phone Katie Harris PA-C Primary Care Provider [phone] Source Comments PLEASE NOTE, if this patient [...] rhinitis, unspecified seasonality, unspecified trigger Place 1 [place] in both nostrils once daily 48 g [...] August 14, 2019 17:36 EDT Encounter info: [id number], [facility], [facility], 08/14/2019 - 08/14/2019 Reason For Exam Chest Pain;Other: RESULT: Chest 2 Views Frontal and Lat Chest 2 Views Frontal and Lat Reason: Other:; Chest Pain; Clinical Question(s): CHF; Special Instructions: COMPARISON: 07/09/2013 FINDINGS: LINES AND TUBES: None. LUNGS AND PLEURA: No acute process IMPRESSION: No acute abnormality. WSN: [id number] Ordering Physician: Frances Alex Signature Line Dictated [...] 10/04/2019, 03/13/2019 Depression Annual Screen 03/14/2024 07/24/2020 [id number] ( season) 2024 02/23/2021, 07/29/2020, 07/01/2020 Imm-Influenza (#1) 2024 01/07/2014 Lipid Screening 11/27/2024 11/28/2019, 03/13/2019 Imm-RSV (adult) (1 - 1-dose 75+ series) 02/13/2052 Hepatitis B Screening Completed 01/10/2020 Hepatitis C [...] AND CONFIRMATORY TESTING NON-REACT TRAY NON-REACT TRAY [employer] [facility] Blood Blood / Unknown 07/24/2020 1 0:08 AM EDT 07/24/2020 10:08 AM EDT us Katie Harris PA-C LAB - BLOOD DRAW Final Resul t [employer] [facility] [address] [address], [email or web address] [facility] [address] [address] * (ABNORMAL) COMPREHENSIVE METABOLIC PANEL (07/24/2020 10:08 AM EDT) GLUCOSE 127(H) 65 - 99 mg/dL [employer] [facility] Comment: Fasting reference interval For someone without known diabetes, a glucose value >125 mg/dL indicates that they may have diabetes and this should be confirmed with a follow-up test. UREA NITROGEN (BUN) 13 7 - 25 mg/dL [employer] [facility] CREATININE (blood) 1.07 0.60 - 1.35 mg/dL [employer] [facility] GFR ESTIMATED 85 > OR = 60 mL/min/1 .73m2 [employer] [facility] EGFR 98 > OR = 60 mL/min/1 .73m2 [employer] [facility] BUN/CREATININE RATIO NOT APPLICABLE 6 - 22 [employer] [facility] SODIUM 139 135 - 146 mmol/L [employer] [facility] POTASSIUM 4.2 3.5 - 5.3 mmol/L [employer] [facility] CHLORIDE 103 98 - 110 mmol/L [employer] [facility] CARBON DIOXIDE 29 20 - 32 mmol/L [employer] [facility] CALCIUM 9.8 8.6 - 10.3 mg/dL [employer] [facility] PROTEIN, TOTAL 7.3 6.1 - 8.1 g/dL [employer] [facility] ALBUMIN 4.4 3.6 - 5.1 g/dL [employer] [facility] GLOBULIN 2.9 1.9 - 3.7 g/dL (calc) [employer] [facility] ALBUMIN/GLOBUL IN RATIO 1.5 1.0 - 2.5 (calc) [employer] [facility] BILIRUBIN, TOTAL 0.5 0.2 - 1.2 mg/dL [employer] [facility] ALKALINE PHOSPHATASE 81 36 - 130 U/L [email or web address] [facility] AST 26 10 - 40 U/L [employer] [facility] ALT 48(H) 9 - 46 U/L [employer] [facility] Blood Blood / Unknown 07/24/2020 1 0:08 AM EDT 07/24/2020 10:08 AM EDT Katie Harris PA-C LAB - BLOOD DRAW Final Resul t [facility] [address] [address], [facility] [address] [address] * (ABNORMAL) HEPATITIS A,B,C PANEL (01/10/2020 10:50 AM EDT) HEPATITIS B SURFACE ANTIBODY POSITIVE(A) NEGATIVE [facility] HEPATITIS B SURFACE ANTIGEN NEGATIVE NEGATIVE [facility] Comment: Over the counter supplements containing high doses of biotin may interfere with this assay. If interference is suspected, patients shoud be retested after refraining from biotin supplements for 72 hours. HEPATITIS C VIRUS DIAGNOSTIC NEGATIVE NEGATIVE [facility] HEPATITIS A ANTIBODY TOTAL NEGATIVE NEGATIVE [facility] Comment: Over the counter supplements containing high doses of biotin may interfere with this assay. If interference is suspected, patients shoud be retested after refraining from biotin supplements for 72 hours. HEPATITIS B CORE ANTIBODY NEGATIVE NEGATIVE [facility] Blood Blood / Unknown 01/10/2020 1 0:50 AM EDT 01/10/2020 1:32 PM EDT Narrative [facility] - 01/10/2020 4:12 PM EDT [employer], a member of [address] [address] Investigations Manager - Marilu Aguilar MD [place] [id number] ORD# [id number] Katie Harris PA-C LAB - BLOOD DRAW Edited Resu lt - Final [address] [address], * (ABNORMAL) LIPID PANEL (11/28/2019 2:20 PM EDT) CHOLESTEROL 226(H) 0 - 200 mg/dL [facility] TRIGLYCERIDES 257(H) 0 - 150 mg/dL [facility] HDL CHOLESTEROL 47 >40 mg/dL [facility] LDL CALCULATED 128(H) 0 - 100 mg/dL [facility] TC-HDLC RATIO 4.8(H) 0 - 4.4 mg/dL [facility] Blood specimen (specimen) Blood / Unknown 11/28/2019 2:20 PM EDT 11/28/2019 2:27 PM EDT Narrative [facility] - 11/28/2019 3:51 PM EDT [employer], a member of [address] [address] Investigations Manager - Marilu Aguilar MD [place] [id number] ORD# [id number] Erick Tolbert PA-C LAB - BLOOD DRAW Final Result [address] [address], from Last 3 Months or Most Recently Relevant to Health Maintenance Insurance [employer] Care Teams Traveling Repair Accountant Relationship Specialty Start Date End Date Katie Harris PA-C [address] [place] [address] PCP - General Internal Medicine 09/07/18
--- OUTSIDE RECORDS SUMMARY | 2025-01-22 13:30 | XMS_ITS | Clinical Summary ---
Author Organization [employer] Address [address] [facility] 7t [place] [address] Care Team Providers Care Laborer Driver Name Role Phone OpheliaNancy madden Primary Care Provider [phone]- [phone] Allergies No known active allergies Medications Diclofenac Sodium 1 % gel Apply topically. [...] 10 mg by mouth at bedtime. Active tamsulosin (Flomax) 0.4 MG 24 hr capsuleIndicat ions:Kidney stones Take 1 capsule (0.4 mg) by mouth Once per day. 30 capsule 01/23/20 25 Active cetirizine (ZyrTEC) 10 MG tablet Take 1 tablet (10 mg) by mouth Once per day. 90 tablet 3 01/23/20 25 026 Active fluticasone (Flonase) 50 MCG/ACT nasal spray Administer 2 sprays into each nostril Once per day. Shake gently. Before first use, prime pump. After use, clean tip and replace cap. 48 g 3 01/23/20 25 026 Active tamsulosin (Flomax) 0.4 MG 24 hr capsuleIndicat ions:Kidney stones Take 1 capsule (0.4 mg) by mouth in the morning. 15 capsule 01/14/20 23 025 Discontinued(Re order (will not trigger notification to Pharmacy)) oxyCODONE (Roxicodone) 5 MG immediate release tablet TAKE 1 TABLET BY MOUTH EVERY 6 HOURS NEEDED FOR PAIN-NEED INS FOR CII 08/11/19 23 025 Discontinued(Me d list cleanup (will not trigger notification to Pharmacy)) cetirizine (ZyrTEC) 10 MG tablet Take 1 tablet (10 mg) by mouth Once per day. 90 tablet 3 01/23/20 25 025 Discontinued(Re order (will not trigger notification to Pharmacy)) fluticasone (Flonase) 50 MCG/ACT nasal spray Administer 2 sprays into each nostril Once per day. Shake gently. Before first use, prime pump. After use, clean tip and replace cap. 48 g 3 01/23/20 25 025 Discontinued(Re order (will not trigger notification to Pharmacy)) tamsulosin (Flomax) 0.4 MG 24 hr capsuleIndicat ions:Kidney stones Take 1 capsule (0.4 mg) by mouth Once per day. 30 capsule 01/23/20 25 025 Discontinued(Re order (will not trigger notification to Pharmacy)) Active Problems Problem Noted Date Diagnosed Date [...] Encounters Date Type Department Care Team Description 01/22/2025 11:30 AM EST Office Visit [address] [address] Nancy Guy DO Prediabetes (Primary Dx); Encounter for immunization; Kidney stones 01/22/2025 Travel 01/21/[address] [address] Nancy Guy DO Chart Prep 01/16/2025 Patient Outreach [address] [address] Nancy Guy DO Care Coordination (CHW outreach for SDOH food needs-referral completed /) 01/15/2025 Patient Outreach [address] [address] Nancy Guy DO Pre-visit Planning (SDOH screening is positive, tobacco screening is negative) 01/11/2025 Telephone [facility] MEDICINE [address] [place] [address] Nancy Guy DO October11/04/2024 Orders Only [facility] [address] [place] [address] Nancy Guy DO Nephrolithiasis (Primary Dx); Palpitations from Last 3 Months Immunizations Immunization Administration Dates Next Due Influenza, IIV3, injectable 01/07/2014 Pneumococcal Conjugate PCV 20 01/22/2025 Pneumococcal Polysaccharide PPSV23 03/13/2019 Tdap 11/13/2011 Family [...] 18 01/22/2025 10:38 AM EST Oxygen Saturation 99% 06/23/2023 9:08 AM EDT Inhaled Oxygen Concentration - - Weight 77 kg (169 lb 12.8 oz) 01/22/2025 10:38 A M EST Height 160 cm (5' 3 ) 01/22/2025 10:38 AM EST Body Mass Index 30.08 01/22/2025 10:38 AM EST Plan of Treatment Health Maintenance Due Date Last Done Comments CT Colonography 1977 Colonoscopy 1977 Colorectal Cancer Screening 1977 FIT DNA/Cologuard 1977 FIT 1977 FOBT 1977 Sigmoidoscopy 1977 Disability Screening 1977 Alcohol/Substance Use Screening 1989 Family Planning (PISQ) 02/13/1992 Hepatitis B Vaccines (1 of 3 - 19+ 3-dose series) 02/13/1996 DTaP/Tdap/Td Vaccines (2 - T d or Tdap) 11/12/2021 11/13/2011 COVID-19 Vaccine (2024-2 6 season) 2024 02/23/2021, 07/29/2020, 07/01/2020 Influenza Vaccine (#1) 2024 01/07/2014 Depression Monitoring 07/22/2025 01/22/2025 , 01/22/2025 SDOH Screening 01/15/2026 01/15/2025 Diabetes: Hemoglobin A1C 01/22/2026 025, 06/23/2023 Tobacco Screening 01/22/2026 01/22/2025 Zoster Vaccines (1 of 2) 2027 Lipid Panel 06/22/2028 06/23/2023 RSV Patients and Patients Aged 60 years or older (1 - 1-dose 75+ series) 02/13/2052 HIV Screening Completed 06/23/2023, 03/13/2019 Hepatitis C Screening Completed 06/23/2023 Pneumococcal Vaccine: Pediatrics (0 to 5 Years) and At-Risk Patients (6 to 49) Years Completed 01/22/2025, 03/13/2019 HIB Vaccines Aged Out No longer eligi [...] TOTAL Routine 01/22/2025 10:42 AM EST Prediabetes HEPATITIS C AB W/REFL TO HCV RNA, [...] Recently Relevant to Health Maintenance Results * POCT Glucose (01/22/2025 10:43 AM EST) Pathologist [facility] Glucose Blood, POC 98 60 - 200 mg/dL [employer] Lot # [id number] Lot# Expiration Date 3 Blood Capillary blood specimen / Unknown 01/22/2025 10:43 AM EST Nancy Guy DO POINT OF CARE TEST ENTER/ANDRIY T ORDERABLES Final Result * (ABNORMAL) POCT Hgb A1c (01/22/2025 10:42 AM EST) Pathologist [facility] Hemoglobin A1C 6.0(A) 4.0 - 5.7 % QC Media Lot # [id number] Lot# Expiration Date Blood 01/22/2025 10:4 2 AM EST Nancy Guy DO POINT OF CARE TEST ENTER/ANDRIY T ORDERABLES Final Result * Hepatitis C Antibody with Reflex to HCV, RNA, Quantitative, Real-Time PCR (06/23/2023 10:38 AM EDT) Pathologist [facility] Hepatitis C Antibody Nonreactive Nonreactive [facility] Comment:Antibodies to HCV no t detected; does not exclude early acuteHCV infection. Blood Venous blood specimen / Unknown 06/23/2023 10:38 AM EDT 06/23/2023 11:27 AM EDT Nancy Guy DO LAB BLOOD ORDERABLES Final R esult [facility] [address] [place] [phone] * HIV-1/2 Antigen and Antibodies, Fourth Generation, with Reflexes (06/23/2023 10:38 AM EDT) Pathologist [facility] HIV AB/AG Nonreactive Nonreactive [facility] Comment:HIV-1 p24 Ag and/or HIV-1/HIV-2 Ab not detected.A test result that is nonreactive does not exclude thepossibility of exposure to or infection with HIV-1 and/orHIV-2. Nonreactive results in this assay for individualswith prior exposure to HIV-1 and/or HIV-2 may be due toantigen and antibody levels that are below the limit ofdetection of this assay.The [employer] HIV Ag/Ab Combo assay result andsupplemental assay results should be interpreted inconjunction with the patient's clinical presentation,history and other laboratory results. If the results areinconsistent with clinical evidence, additional testing issuggested to confirm the result. Blood Venous blood specimen / Unknown 06/23/2023 10:38 AM EDT 06/23/2023 11:27 AM EDT us Nancy Guy DO LAB BLOOD ORDERABLES Final R esult [facility] [address] [place] [phone] * (ABNORMAL) Lipid Panel, Standard (06/23/2023 10:38 AM EDT) Triglycerides 167(H) <150 mg/dL [facility] Comment:Desirable Triglyceri de: less than 150 mg/dLBorderline High Triglyceride 150-199 mg/dLHigh Triglyceride: 200-499 mg/dLVery High Triglyceride: greater than or equal to 5OO mg/dL Cholesterol 228(H) <200 mg/dL [facility] Comment:Desirable Cholestero l: less than 200 mg/dLBorderline High Cholesterol: 200-239 mg/dLHigh Cholesterol: greater than 239 mg/dL LDL Cholesterol Calculated 146(H) <100 mg/dL [facility] Comment:Desirable LDL: less than 100 mg/dLNear Optimal/Above Optimal LDL: 110- 129 mg/dLBorderline High LDL: 130-159 mg/dLHigh LDL: 160-189 mg/dLVery High LDL: greater than or equal to 190 mg/dL HDL Cholesterol 49 >40 mg/dL [facility] Comment:Desirable HDL: great er than 40 mg/dL Note: This HDL assay may give artificially low results in patients with liver disease. Blood Venous blood specimen / Unknown 06/23/2023 10:38 AM EDT 06/23/2023 11:27 AM EDT us Nancy Guy DO LAB BLOOD ORDERABLES Final R esult [facility] [address] [place] [phone] [phone] from Last 3 Months or Most Recently Relevant to Health Maintenance Insurance [employer] Care Teams Laborer Driver Relationship Specialty Start Date End Date Nancy Guy DO [address] [place] [phone] PCP - General Family Medicine 06/23/23
--- OUTSIDE RECORDS SUMMARY | 2025-01-22 13:30 | XMS_ITS | Encounter Summary ---
Author Organization [employer] Address [address] 7[address] [place] [address] Care Team Providers Care Food Checkers And Cashiers Supervisor Name Role Phone Nancy Guy DO Primary Care Provider [phone] Reason for Visit * Reason Comments Med Refill Encounter Details Date Type Department Care Team ([facility] st Contact Info) Description 02/10/2023 Refill [facility] [address] [place], [place] [phone] Marilu August MD [address] [place] [address] Kidney stones Social History Tobacco Use Types [...] kidney documented in this encounter Care Teams Food Checkers And Cashiers Supervisor Relationship Specialty Start Date End Date Nancy Guy DO [address] [place], [place] [phone] PCP - General Family Medicine 06/23/23 documented as of this encounter
--- OUTSIDE RECORDS SUMMARY | 2025-01-22 13:30 | XMS_ITS | Encounter Summary ---
Author Organization [employer] Address [address] [facility] 7t [place] [address] Care Team Providers Care Clinical Resource Director Name Role Phone Nancy Guy DO Primary Care Provider [phone] Reason for Visit * Reason Onset Date Comments Chart Prep 01/21/2025 Encounter Details Date Type Department Care Team ([facility] Contact Info) Description 01/21/2025 Telephone [facility] MED[facility] [address] [place], [place] [phone] Nancy Guy DO [address] [place], [place] [phone] Chart Prep Social History Tobacco Use Types Packs/Day Years Used Date Smoking Tobacco: Never Passive Smoke Exposure: Never Smokeless Tobacco: Never Depression Answer Date Recorded Patient Health Questionnaire-9 [...] PM EDT documented as of this encounter Miscellaneous Notes * Telephone Encounter - Winter Storey [place] - 01/21/2025 11:50 AM EST Chart Prep Labs: done Images: not applicable Referrals: [facility] Note-01/04/25 Vaccines due: Covid, Flu, PCV20, Tdap, and Hep B Screenings: colonoscopy and PISQ Overdue care gaps: SBIRT, PHQ-9, SHON-7, and Disability screen documented in this encounter Plan of Treatment Not on file documented as of this encounter Visit Diagnoses Not on filedocumented in this encounter Additional Health Concerns Assessment Noted Time PHQ-9 Depression Total Score: 12 024 9:08 AM EDT documented as of this encounter Care Teams Clinical Resource Director Relationship Specialty Start Date End Date Nancy Guy DO [address] [place] [phone] PCP - General Family Medicine 06/23/23 documented as of this encounter
--- OUTSIDE RECORDS SUMMARY | 2025-01-22 13:30 | XMS_ITS | Encounter Summary ---
Author Organization [employer] Address [address] [place] [address] Care Team Providers Care Oil Derrick Operator Name Role Phone OpheliaNancy madden Primary Care Provider [phone] Encounter Details Date Type Department Care Team (Latest Contact Info) Description 01/22/2025 Travel Social History Tobacco Use Types Packs/Day Years [...] PM EDT documented as of this encounter Functional Status * Over the past 2 weeks, how often have you been bothered by any of the following problems? Question Answer Date of Assessment Author Patient Health Questionnaire -2 Score 4 01/22/2025 11:00 AM Winter [place] * Little interest or pleasure in doing things Answer Date of Assessment Author More than half the days 01/22/2025 11:00 AM Winter [place] * Feeling down, depressed, or hopeless Answer Date of Assessment Author More than half the days 01/22/2025 11:00 AM Winter [place]re [place] * Trouble falling or staying asleep, [...] documented as of this encounter Care Teams Oil Derrick Operator Relationship Specialty Start Date End Date Nancy Guy DO [address] [place] [phone] PCP - General Family Medicine 06/23/23 documented as of this encounter
[2025-01-22 13:44] LABS: MANUAL DIFF FLAG NO
[2025-01-22 13:52] LABS: Hematocrit 53.6 % (42.0-52.0); Hemoglobin 16.9 g/dl (14.0-18.0); Imm Gran Abs Auto 0.02 X10*3/uL (0.00-0.03); Imm Gran Pct Auto 0.5 % (0.0-0.4); Lymphocytes Absolute Auto 2.0 X10*3/uL (1.2-4.9); Mean Corpuscular HGB Conc 31.5 g/dl (31.0-36.0); Mean Corpuscular Hemoglobin 26.8 pg (27.0-33.0); Mean Corpuscular Volume 85.1 fL (80.0-98.0); NRBC Abs Auto 0.000 X10*3/uL (0.0-0.012); NRBC Pct Auto 0.0 /100WBC (0.0-0.2); Platelet Count 216 X10*3/uL (160-400); Red Blood Count 6.30 X10*6/uL (4.60-5.80); White Blood Count 4.4 X10*3/uL (4.8-10.8)
[2025-01-22 14:11] LABS: Alanine Aminotransferase 132 U/L (0-40); Albumin Level 4.6 g/dL (3.5-5.0); Alkaline Phosphatase 96 U/L (39-117); Anion Gap 10 (12-20); Aspartate Amino Transferase 40 U/L (5-37); Blood Urea Nitrogen 12 mg/dL (9-16); Calcium 9.6 mg/dL (8.4-10.2); Carbon Dioxide 30 mmol/L (22-29); Chloride 106 mmol/L (96-108); Cholesterol 244 mg/dL (<200); Estimated Glomerular Filt Rate > 60; HDL Cholesterol 56 mg/dL (>40); Potassium 4.2 mmol/L (3.3-5.1); Sodium 142 mmol/L (135-145); Total Protein 7.6 g/dL (6.5-8.0); Triglycerides 158 mg/dL (<150)
[2025-01-22 14:28] LABS: Free T4 (Free Thyroxine) 1.03 ng/dL (0.71-1.85); Thyroid Stimulating Hormone 0.95 uIU/mL (0.32-4.0)
[2025-01-23 04:27] LABS: HBsAGNum1 0.37 S/CO (0.00-0.99); HIV Num 1 0.05 S/CO (0.00-0.99); Hepatitis B Surface Antigen Negative (Negative); ~HepC Num1 0.11 S/CO (0.00-0.79); ~Hepatitis B Surface Antibody REACTIVE (Nonreactive); ~Hepatitis C Antibody Nonreactive (Nonreactive)
== END 2025-01-22 11:18 | disposition home or self-care (01) ==
LOC: HO.HHCL 11:17
PROVIDERS: Family Medicine; PCP General Practice; Visit Provider General Practice
DX: Z11.59 Encounter for screening for other viral diseases (principal); Z11.4 Encounter for screening for human immunodeficiency virus [HIV]; R73.03 Prediabetes; Z20.6 Contact with and (suspected) exposure to human immunodeficiency virus [HIV]
CPT/HCPCS: 36415; 80048; 80061; 80076; 82306; 83036; 84439; 84443; 85025; 86592; 86706; 86803; 87340; 87389

== ENCOUNTER 2025-02-06 10:42 | Outpatient (REF) | payer MEDICAID, SELFPAY ==
--- NOTE | ~2025-02-06 | US_ITS ---
CLINICAL HISTORY: N20.0 - Calculus of kidney US Renal Comparison: None provided Findings: Right kidney normal size and echotexture, 10.3 x 4.9 x 5.2 cm length. Left kidney normal size and echotexture, 10.6 x 4.7 x 5.6 cm length. No collecting system dilatation of either kidney. Normal color Doppler. The bladder was not imaged on present examination. IMPRESSION: 1. Normal kidneys. This document has been electronically signed by: Jesus Navarro MD on 02/06/2025 17:33:35
--- OUTSIDE RECORDS SUMMARY | 2025-02-06 12:57 | XMS_ITS | Encounter Summary ---
Author Organization [employer] Address [address] [place] [address] Care Team Providers Care Rn Critical Care Name Role Phone Nancy Guy DO Primary Care Provider [phone] Reason for Visit * Reason Comments Med Refill Encounter Details Date Type Department Care Team ([facility] st Contact Info) Description 02/10/2023 Refill [facility] [address] [place], [place] [phone] Marilu August MD [address] [place] [address] Kidney stones Social History Tobacco Use Types [...] kidney documented in this encounter Care Teams Rn Critical Care Relationship Specialty Start Date End Date Nancy Guy DO [address] [place], [place] [phone] PCP - General Family Medicine 06/23/23 documented as of this encounter
--- OUTSIDE RECORDS SUMMARY | 2025-02-06 12:57 | XMS_ITS | Clinical Summary ---
Author Organization [employer] Address [address] [place] [address] Care Team Providers [employer] Supervisor Name Role Phone OpheliaNancy madden Primary Care Provider + [phone] Allergies No known active allergies Medications Diclofenac [...] Description 01/22/2025 11:30 AM EST Office Visit [address] [phone] Nancy Guy DO Prediabetes (Primary Dx); Encounter for immunization; Kidney stones 01/22/2025 Travel 01/21/[address] [address] Nancy Guy DO Chart Prep 01/16/2025 Patient Outreach [address] [address] Nancy Guy DO Care Coordination (CHW outreach for SDOH food needs-referral completed /) 01/15/2025 Patient Outreach [address] [phone] Nancy Guy DO Pre-visit Planning (SDOH screening is positive, tobacco screening is negative) 01/11/2025 Telephone [facility] [address] [place] [phone] Nancy Guy DO October recall from Last 3 Months Immunizations Immunization Administration [...] is your housing situation today? I have sandyzena luis 01/15/[address] you [...] d or Tdap) 11/12/2021 11/13/2011 COVID-19 Vaccine (4 - 2024-2 6 season) [...] 25-Hydroxy, Total, Immunoassay (01/22/2025 11:23 AM EST) [facility] Vitamin D 25-OH Total 62.0 >30 ng/mL [facility] Comment: Health Based Reference Values*< 20 ng/mL Uikfugxby34-75 ng/mL Insufficient> 30 ng/mL Sufficient*Yolande SIMPSON. N [...] DO LAB BLOOD ORDERABLES Final R esult [facility] [address], [place] [phone] * (ABNORMAL) CBC auto differential (01/22/2025 11:23 AM EST) White Blood Count 4.4(L) 4.8 - 10.8 X10*3/uL [facility] Red Blood Count 6.30(H) 4.60 - 5.80 X10*6/uL [facility] Hemoglobin 16.9 14.0 - 18.0 g/dl [facility] Hematocrit 53.6(H) 42.0 - 52.0 % [facility] Mean Corpuscular Volume 85.1 80.0 - 98.0 fL [facility] Mean Corpuscular Hemoglobin 26.8(L) 27.0 - 33.0 pg [facility] Mean Corpuscular HGB Conc 31.5 31.0 - 36.0 g/dl [facility] Red Cell Distribution Width 14.6 11.0 - 16.0 % [facility] Platelet Count 216 160 - 400 X10*3/uL [facility] Mean Platelet Volume 11.3 9.4 - 12.4 fL [facility] Neutrophils Percent Auto 43.7(L) 45 - 73 % [facility] Imm Gran Pct Auto 0.5(H) 0.0 - 0.4 % [facility] Lymphocytes Percent Auto 44.9(H) 20 - 40 % [facility] Monocytes Percent Auto 8.2 2 - 11 % [facility] Eosinophils Percent Auto 1.8 0 - 4 % [facility] Basophils Percent Auto 0.9 0 - 2 % [facility] NRBC Pct Auto 0.0 0.0 - 0.2 /100WBC [facility] Neutrophils Absolute Auto 1.9(L) 2.0 - 8.3 x10*3/uL [facility] Imm Gran Abs Auto 0.02 0.00 - 0.03 X10*3/uL [facility] Lymphocytes Absolute Auto 2.0 1.2 - 4.9 X10*3/uL [facility] Monocytes Absolute Auto 0.4 0.1 - 1.2 X10*3/uL [facility] Eosinophils Absolute Auto 0.1 0.0 - 0.4 X10*3/uL [facility] Basophils Absolute Auto 0.0 0.0 - 0.2 X10*3/uL [facility] NRBC Abs Auto 0.000 0.0 - 0.012 X10*3/uL [facility] Blood Venous blood specimen / Unknown 01/22/2025 11:23 AM EST 01/22/2025 1:34 PM EST Nancy Guy DO LAB BLOOD ORDERABLES Final R esult [facility] [address] [place] [phone] * Hepatitis C Antibody with Reflex to HCV, RNA, Quantitative, Real-Time PCR (01/22/2025 11:23 AM EST) Hepatitis C Antibody Nonreactive Nonreactive [facility] Comment:Antibodies to HCV no t detected; does not exclude early acuteHCV infection. Blood Venous blood specimen / Unknown 01/22/2025 11:23 AM EST 01/22/2025 1:34 PM EST Nancy Jurcsak DO LAB BLOOD ORDERABLES Final R esult Performing Organization Address [facility]/ZIP Co de Phone Number [facility] [address] [place] [phone] * Hepatitis B surface antigen, EIA (01/22/2025 11:23 AM EST) Hepatitis B Surface Ag Negative Negative [facility] Blood Venous blood specimen / Unknown 01/22/2025 11:23 AM EST 01/22/2025 1:34 PM EST Nancy Chungdalton DO LAB BLOOD ORDERABLES Final R esult Performing Organization Address [facility] de Phone Number [facility] [address] [place] [phone] * RPR (Monitor) with Reflex to??Titer (01/22/2025 11:23 AM EST) Pathologist [facility] RPR (Monitor) w/Refl Titer NON-REACTI VE NON-REACT TRAY [facility] Comment:THIS TEST WAS PERFOR MED AT:[facility] [place] [address] [phone] MD Rapid Plasma Reagin Ab Titer TNP [facility] Blood Venous blood specimen / Unknown 01/22/2025 11:23 AM EST 01/22/2025 1:34 PM EST Nancy Chungashishchano DO LAB BLOOD ORDERABLES Final R esult Performing Organization Address [facility] Co de Phone Number [facility] [address] [place] [phone] * HIV-1/2 Antigen and Antibodies, Fourth Generation, with Reflexes (01/22/2025 11:23 AM EST) HIV AB/AG Nonreactive Nonreactive [facility] Comment:HIV-1 p24 Ag and/or HIV-1/HIV-2 Ab not detected.A test result that is nonreactive does not exclude thepossibility of exposure to or infection with HIV-1 and/orHIV-2. Nonreactive results in this assay for individualswith prior exposure to HIV-1 and/or HIV-2 may be due toantigen and antibody levels that are below the limit ofdetection of this assay.The Telera HIV Ag/Ab Combo assay result andsupplemental assay results should be interpreted inconjunction with the patient's clinical presentation,history and other laboratory results. If the results areinconsistent with clinical evidence, additional testing issuggested to confirm the result. Blood Venous blood specimen / Unknown 01/22/2025 11:23 AM EST 01/22/2025 1:34 PM EST Nancy Guy LAB BLOOD ORDERABLES Final R esult Performing Organization Address City/[facility]/ZIP Co de Phone Number [facility] [address] [place] [phone] * Hepatitis B Surface Antibody, Qualitative (01/22/2025 11:23 AM EST) ~Hepatitis B Surface Antibody REACTIVE Nonreactive [facility] Comment:REACTIVE: > 11.99 mI U/mL Blood Venous blood specimen / Unknown 01/22/2025 11:23 AM EST 01/22/2025 1:34 PM EST Nancy Guy LAB BLOOD ORDERABLES Final R esult Performing Organization Address City/[facility]/ZIP Co de Phone Number [facility] [address] [place] [phone] * TSH (01/22/2025 11:23 AM EST) Thyroid Stimulating Hormone 0.95 0.32 - 4.0 uIU/mL [facility] Comment:TSH 3rd Generation ( [facility]) Blood Venous blood specimen / Unknown 01/22/2025 11:23 AM EST 01/22/2025 1:34 PM EST Nancy Guy DO LAB BLOOD ORDERABLES Final R esult Performing Organization Address City/[facility]/ZIP Co de Phone Number [facility] [address] [place] [phone] * T4, Free (01/22/2025 11:23 AM EST) Free T4 (Free Thyroxine) 1.03 0.71 - 1.85 ng/dL [facility] Blood Venous blood specimen / Unknown 01/22/2025 11:23 AM EST 01/22/2025 1:34 PM EST Nancy Guy LAB BLOOD ORDERABLES Final R esult Performing Organization Address [facility] Co de Phone Number [facility] [address] [place] [phone] * Hemoglobin A1c (01/22/2025 11:23 AM EST) Hemoglobin A1c 5.8 <6.0 % [facility] Comment:Hemoglobin A1C Refer ence Range Adults: 4.8 - 6.0 % Non diabetic: < 6.0 % Goal: < 7.0 %Additional Action Suggested: > 8.0 %Note: Hemoglobin A1c results are invalid for patients with abnormal amounts of HbF. Blood transfusions may impact the HbA1c concentration in the patient sample. Estimated Average Glucose 120 mg/dL [facility] Comment:eAG = Estimated ave rage glucose which is %A1C expressed asaverage glucose, using the formula of the [id number] Glucose study (ADAG), Diabetes Care, Vol.31,#8,2007 Blood Venous blood specimen / Unknown 01/22/2025 11:23 AM EST 01/22/2025 1:34 PM EST Nancy Guy [employer] LAB BLOOD ORDERABLES Final R esult Performing Organization Address City/[facility]/ZIP Co de Phone Number [facility] [address] [place] [phone] * (ABNORMAL) Hepatic Function Panel (01/22/2025 11:23 AM EST) Bilirubin, Total 0.3 0.0 - 1.0 mg/dL [facility] Bilirubin, Direct 0.1 0.0 - 0.5 mg/dL [facility] Aspartate Amino Transferase 40(H) 5 - 37 U/L [facility] Alanine Aminotransferase 132(H) 0 - 40 U/L [facility] Total Protein 7.6 6.5 - 8.0 g/dL [facility] Albumin Level 4.6 3.5 - 5.0 g/dL [facility] Alkaline Phosphatase 96 39 - 117 U/L [facility] Blood Venous blood specimen / Unknown 01/22/2025 11:23 AM EST 01/22/2025 1:34 PM EST us Nancy Guy DO LAB BLOOD ORDERABLES Final R esult [facility] [address] [place] [phone] * (ABNORMAL) Lipid Panel, Standard (01/22/2025 11:23 AM EST) Triglycerides 158(H) <150 mg/dL [facility] Comment:Desirable Triglyceri de: less than 150 mg/dLBorderline High Triglyceride 150-199 mg/dLHigh Triglyceride: 200-499 mg/dLVery High Triglyceride: greater than or equal to 5OO mg/dL Cholesterol 244(H) <200 mg/dL [facility] Comment:Desirable Cholestero l: less than 200 mg/dLBorderline High Cholesterol: 200-239 mg/dLHigh Cholesterol: greater than 239 mg/dL LDL Cholesterol Calculated 157(H) <100 mg/dL [facility] Comment:Desirable LDL: less than 100 mg/dLNear Optimal/Above Optimal LDL: 110- 129 mg/dLBorderline High LDL: 130-159 mg/dLHigh LDL: 160-189 mg/dLVery High LDL: greater than or equal to 190 mg/dL HDL Cholesterol 56 >40 mg/dL [facility] Comment:Desirable HDL: great er than 40 mg/dL Note: This HDL assay may give artificially low results in patients with liver disease. Blood Venous blood specimen / Unknown 01/22/2025 11:23 AM EST 01/22/2025 1:34 PM EST Nancy Guy DO LAB BLOOD ORDERABLES Final R esult Performing Organization Address City/[facility]/ZIP Co de Phone Number [facility] [address] [place] [phone] * (ABNORMAL) Basic Metabolic Panel (01/22/2025 11:23 AM EST) Sodium 142 135 - 145 mmol/L [facility] Potassium 4.2 3.3 - 5.1 mmol/L [facility] Chloride 106 96 - 108 mmol/L [facility] Carbon Dioxide 30(H) 22 - 29 mmol/L [facility] Anion Gap 10(L) 12 - 20 [facility] Urea Nitrogen (BUN) 12 9 - 16 mg/dL [facility] Creatinine, Serum 1.13 0.5 - 1.4 mg/dL [facility] Estimated Glomerular Filt Rate >60 [facility] Comment:Chronic Kidney Disea se: Estimated GFR < 60 mL/min/1.05q5Cmvarx Kidney Disease: Estimated GFR < 15 mL/min/1.73m2 Glucose 89 60 - 115 mg/dL [facility] Calcium 9.6 8.4 - 10.2 mg/dL [facility] Blood Venous blood specimen / Unknown 01/22/2025 11:23 AM EST 01/22/2025 1:34 PM EST Nancy Guy DO LAB BLOOD ORDERABLES Final R esult Performing Organization Address [facility]/ZIP Co de Phone Number [facility] [address] [place] [phone] * POCT Glucose (01/22/2025 10:43 AM [...] Media Lot # [id number] Lot# Expiration Date 5,027 Blood 01/22/2025 10:[address] [facility] Nancy Guy DO POINT OF CARE TEST ENTER/ANDRIY T ORDERABLES Final Result from Last 3 Months Insurance [facility] C3 Care Teams [employer] Supervisor Relationship Specialty Start Date End Date Nancy Guy DO [address] [place] [address] PCP - General Family Medicine 06/23/23
== END 2025-02-06 10:43 | disposition home or self-care (01) ==
LOC: HO.HMGCX 10:42
PROVIDERS: PCP Family Medicine; Visit Provider Urology
DX: N20.0 Calculus of kidney (principal); R10.A1 Flank pain, right side
CPT/HCPCS: 76775

== ENCOUNTER → 2025-02-06 10:46 | Outpatient (BNV) | payer MEDICAID, SELFPAY | PROVIDERS: PCP Family Medicine; Visit Provider Radiology Diagnostic Radiology | DX: N20.0 Calculus of kidney (principal) | CPT/HCPCS: 76775 ==

== ENCOUNTER 2025-02-26 06:20 | Day surgery (SDC) | payer MEDICAID, SELFPAY ==
--- OUTSIDE RECORDS SUMMARY | 2025-01-31 19:46 | XMS_ITS | Encounter Summary ---
Author Organization [employer] Address [address] 7[address] [place] [address] Care Team Providers Care Laboratory Engineer Name Role Phone Nancy Guy DO Primary Care Provider [phone] Reason for Visit * Reason Comments Med Refill Encounter Details Date Type Department Care Team ([facility] st Contact Info) Description 02/10/2023 Refill [facility] [address] [place], [place] [phone] Marilu August MD [address] [place] [address] Kidney stones Social History Tobacco Use Types [...] kidney documented in this encounter Care Teams Laboratory Engineer Relationship Specialty Start Date End Date Nancy Guy DO [address] [place], [place] [phone] PCP - General Family Medicine 06/23/23 documented as of this encounter
--- OUTSIDE RECORDS SUMMARY | 2025-01-31 19:47 | XMS_ITS | Clinical Summary ---
Author Organization [employer] Address [address] [facility] 7[address] [place] [address] Care Team Providers Care Software Design Engineer Name Role Phone OpheliaNancy madden Primary Care Provider [phone]- [phone] Allergies No known active allergies Medications Diclofenac [...] Description 01/22/2025 11:30 AM EST Office Visit [address] [address] Nancy Guy DO Prediabetes (Primary Dx); Encounter for immunization; Kidney stones 01/22/2025 Travel 01/21/[address] [address] Nancy Guy DO Chart Prep 01/16/2025 Patient Outreach [address] [address] Nancy Guy DO Care Coordination (CHW outreach for SDOH food needs-referral completed /) 01/15/2025 Patient Outreach [address] [address] Nancy Guy DO Pre-visit Planning (SDOH screening is positive, tobacco screening is negative) 01/11/2025 Telephone [facility] [address] [place] [address] Nancy Guy DO October11/04/2024 Orders Only [facility] [address] [place] [address] Nancy Guy DO Nephrolithiasis (Primary Dx); Palpitations [...] 01/15/2026 01/15/2025 Diabetes: Hemoglobin A1C 01/22/2026 025, 01/22/2025, 06/23/2023 Tobacco Screening 01/22/2026 01/22/2025 Zoster Vaccines (1 of 2) 2027 Lipid Panel 01/22/2030 01/22/2025, 06/23/2023 RSV Patients and Patients Aged 60 years or older (1 - 1-dose 75+ series) 02/13/2052 HIV Screening Completed 01/22/2025, 06/23/2023, 03/13/2019 Hepatitis C Screening Completed 01/22/2025 , 06/23/2023 Pneumococcal Vaccine: Pediatrics (0 to 5 [...] Procedure Name Priority Date/Time Associated Diagnosis Comments CBC WITH AUTO DIFFERENTIAL Routine 01/22/2025 11:23 AM EST Prediabetes HEPATITIS B SURFACE ANTIBODY, QUALITATIVE Routine 01/22/2025 11:23 AM EST Prediabetes RPR (MONITOR) W/REFL TITER Routine 01/22/2025 11:23 AM EST Prediabetes HEPATITIS C AB W/REFL TO HCV RNA, QN, PCR Routine 01/22/2025 11:23 AM EST Prediabetes HIV 1/2 ANTIGEN/ANTIBODY, FOURTH GENERATION W/RFL Routine 01/22/2025 11:23 AM EST Prediabetes HEPATITIS B SURFACE ANTIGEN, EIA Routine 01/22/2025 11:23 AM EST Prediabetes BASIC METABOLIC PANEL Routine 01/22/2025 11:23 AM EST Prediabetes HEMOGLOBIN A1C Routine 01/22/2025 11:23 AM EST Prediabetes HEPATIC FUNCTION PANEL Routine 01/22/2025 11:23 AM EST Prediabetes VITAMIN D,25-OH,TOTAL,IA Routine 01/22/2025 11:23 AM EST Prediabetes TSH Routine 01/22/2025 11:23 AM EST Prediabetes LIPID PANEL, STANDARD Routine 01/22/2025 11:23 AM EST Prediabetes T4, FREE Routine 01/22/2025 11:23 AM EST Prediabetes POCT GLUCOSE Routine 01/22/2025 10:43 AM EST Prediabetes POCT GLYCATED HEMOGLOBIN, TOTAL Routine 01/22/2025 10:42 AM EST Prediabetes from Last 3 Months Results * Vitamin D, 25-Hydroxy, Total, Immunoassay (01/22/2025 11:23 AM EST) Pathologist [facility] Vitamin D 25-OH Total 62.0 >30 ng/mL [facility] Comment: Health Based Reference Values*< 20 ng/mL Dfcuwtlfu70-26 ng/mL Insufficient> 30 ng/mL Sufficient*Yolande SIMPSON. N Engl J Med. 2007;357:266-280There is no well-established upper level of normal vitamin Dlevels. Some laboratories use 50 ng/mL as an upper limit ofnormal. However, toxicity is patient-dependent and may occurat any level. Careful correlation with the patient'spresentation is necessary and, if there is concern forvitamin D toxicity, treatment should be consideredirrespective of the serum level.Care must be taken in interpreting Vitamin D results fromdifferent laboratories and methodologies. Published datademonstrated that results from patients undergoinghemodialysis may show a negative bias when tested withvarious automated 25-OH vitamin D assays when compared toLC-MS/MS.When testing samples from patients whose predominant form ofVitamin D is Vitamin D2, such as patients receiving VitaminD2 supplementation, results that are subtherapeutic shouldbe confirmed with another method such as LC-MS/MS. Blood Venous blood specimen / Unknown 01/22/2025 11:23 AM EST 01/22/2025 1:34 PM EST us Nancy Guy DO LAB BLOOD ORDERABLES Final R esult [facility] [address] [place] [address] [phone] * (ABNORMAL) CBC auto differential (01/22/2025 11:23 AM EST) White Blood Count 4.4(L) 4.8 - 10.8 X10*3/uL [facility] Red Blood Count 6.30(H) 4.60 - 5.80 X10*6/uL [facility] Hemoglobin 16.9 14.0 - 18.0 g/dl [facility] Hematocrit 53.6(H) 42.0 - 52.0 % [facility] Mean Corpuscular Volume 85.1 80.0 - 98.0 fL [facility] Mean Corpuscular Hemoglobin 26.8(L) 27.0 - 33.0 pg [facility] Mean Corpuscular HGB Conc 31.5 31.0 - 36.0 g/dl [facility] Red Cell Distribution Width 14.6 11.0 - 16.0 % [facility] Platelet Count 216 160 - 400 X10*3/uL [facility] Mean Platelet Volume 11.3 9.4 - 12.4 fL [facility] Neutrophils Percent Auto 43.7(L) 45 - 73 % [facility] Imm Gran Pct Auto 0.5(H) 0.0 - 0.4 % [facility] Lymphocytes Percent Auto 44.9(H) 20 - 40 % [facility] Monocytes Percent Auto 8.2 2 - 11 % [facility] Eosinophils Percent Auto 1.8 0 - 4 % [facility] Basophils Percent Auto 0.9 0 - 2 % [facility] NRBC Pct Auto 0.0 0.0 - 0.2 /100WBC [facility] Neutrophils Absolute Auto 1.9(L) 2.0 - 8.3 x10*3/uL [facility] Imm Gran Abs Auto 0.02 0.00 - 0.03 X10*3/uL [facility] Lymphocytes Absolute Auto 2.0 1.2 - 4.9 X10*3/uL [facility] Monocytes Absolute Auto 0.4 0.1 - 1.2 X10*3/uL [facility] Eosinophils Absolute Auto 0.1 0.0 - 0.4 X10*3/uL [facility] Basophils Absolute Auto 0.0 0.0 - 0.2 X10*3/uL [facility] NRBC Abs Auto 0.000 0.0 - 0.012 X10*3/uL [facility] Blood Venous blood specimen / Unknown 01/22/2025 11:23 AM EST 01/22/2025 1:34 PM EST us Nancy Guy DO LAB BLOOD ORDERABLES Final R esult [facility] [address] [place], [place] [phone] * Hepatitis C Antibody with Reflex to HCV, RNA, Quantitative, Real-Time PCR (01/22/2025 11:23 AM EST) Hepatitis C Antibody Nonreactive Nonreactive [facility] Comment:Antibodies to HCV no t detected; does not exclude early acuteHCV infection. Blood Venous blood specimen / Unknown 01/22/2025 11:23 AM EST 01/22/2025 1:34 PM EST Nancy Guy DO LAB BLOOD ORDERABLES Final R esult Performing Organization Address [facility] Co de Phone Number [facility] [address] [place] [phone] * Hepatitis B surface antigen, EIA (01/22/2025 11:23 AM EST) Hepatitis B Surface Ag Negative Negative [facility] Blood Venous blood specimen / Unknown 01/22/2025 11:23 AM EST 01/22/2025 1:34 PM EST us Nancy Guy DO LAB BLOOD ORDERABLES Final R esult Performing Organization Address [facility] Phone Number [facility] [address] [place] [phone] * RPR (Monitor) with Reflex to??Titer (01/22/2025 11:23 AM EST) RPR (Monitor) w/Refl Titer NON-REACTI VE NON-REACT TRAY [facility] Comment:THIS TEST WAS PERFOR MED AT:[facility] [place] [phone] MD Rapid Plasma Reagin Ab Titer TNP [facility] Blood Venous blood specimen / Unknown 01/22/2025 11:23 AM EST 01/22/2025 1:34 PM EST us Nancy Guy DO LAB BLOOD ORDERABLES Final R esult Performing Organization Address [facility] Co de Phone Number [facility] [address] [place] [phone] * HIV-1/2 Antigen and Antibodies, Fourth Generation, with Reflexes (01/22/2025 11:23 AM EST) HIV AB/AG Nonreactive Nonreactive [facility] Comment:HIV-1 p24 Ag and/or HIV-1/HIV-2 Ab not detected.A test result that is nonreactive does not exclude thepossibility of exposure to or infection with HIV-1 and/orHIV-2. Nonreactive results in this assay for individualswith prior exposure to HIV-1 and/or HIV-2 may be due toantigen and antibody levels that are below the limit ofdetection of this assay.The [employer] HIV Ag/Ab Combo assay result andsupplemental assay results should be interpreted inconjunction with the patient's clinical presentation,history and other laboratory results. If the results areinconsistent with clinical evidence, additional testing issuggested to confirm the result. Blood Venous blood specimen / Unknown 01/22/2025 11:23 AM EST 01/22/2025 1:34 PM EST Nancy Guy LAB BLOOD ORDERABLES Final R esult Performing Organization Address City/[facility]/ZIP Co de Phone Number [facility] [address] [place] [phone] * Hepatitis B Surface Antibody, Qualitative (01/22/2025 11:23 AM EST) [facility] ~Hepatitis B Surface Antibody REACTIVE Nonreactive [facility] Comment:REACTIVE: > 11.99 mI U/mL Blood Venous blood specimen / Unknown 01/22/2025 11:23 AM EST 01/22/2025 1:34 PM EST Nancyjimmy Guy AMEE LAB BLOOD ORDERABLES Final R esult Performing Organization Address City/[facility] Co de Phone Number [facility] [address] [place] [phone] * TSH (01/22/2025 11:23 AM EST) [facility] Thyroid Stimulating Hormone 0.95 0.32 - 4.0 uIU/mL [facility] Comment:TSH 3rd Generation ( [facility]) Blood Venous blood specimen / Unknown 01/22/2025 11:23 AM EST 01/22/2025 1:34 PM EST Nancy Guy LAB BLOOD ORDERABLES Final R esult Performing Organization Address City/[facility]/ZIP Co de Phone Number [facility] [address] [place] [phone] * T4, Free (01/22/2025 11:23 AM EST) Free T4 (Free Thyroxine) 1.03 0.71 - 1.85 ng/dL [facility] Blood Venous blood specimen / Unknown 01/22/2025 11:23 AM EST 01/22/2025 1:34 PM EST Nancy Guy DO LAB BLOOD ORDERABLES Final R esult Performing Organization Address [facility] Co de Phone Number [facility] [address] [place] [phone] * Hemoglobin A1c (01/22/2025 11:23 AM EST) Hemoglobin A1c 5.8 <6.0 % [facility] Comment:Hemoglobin A1C Refer ence Range Adults: 4.8 - 6.0 % Non diabetic: < 6.0 % Goal: < 7.0 %Additional Action Suggested: > 8.0 %Note: Hemoglobin A1c results are invalid for patients with abnormal amounts of HbF. Blood transfusions may impact the HbA1c concentration in the patient sample. Estimated Average Glucose 120 mg/dL [facility] Comment:eAG = Estimated ave rage glucose which is %A1C expressed asaverage glucose, using the formula of the X3O-PpsvhbdUncjogc Glucose study (ADAG), Diabetes Care, Vol.31,#8,Oct. 2007 Blood Venous blood specimen / Unknown 01/22/2025 11:23 AM EST 01/22/2025 1:34 PM EST Nancy Malena DO LAB BLOOD ORDERABLES Final R esult Performing Organization Address City/[facility]/ZIP Co de Phone Number [facility] [address] [place] [phone] * (ABNORMAL) Hepatic Function Panel (01/22/2025 11:23 AM EST) Bilirubin, Total 0.3 0.0 - 1.0 mg/dL [facility] Bilirubin, Direct 0.1 0.0 - 0.5 mg/dL [facility] Aspartate Amino Transferase 40(H) 5 - 37 U/L [facility] Alanine Aminotransferase 132(H) 0 - 40 U/L [facility] Total Protein 7.6 6.5 - 8.0 g/dL [facility] Albumin Level 4.6 3.5 - 5.0 g/dL [facility] Alkaline Phosphatase 96 39 - 117 U/L [facility] Blood Venous blood specimen / Unknown 01/22/2025 11:23 AM EST 01/22/2025 1:34 PM EST Nancy Chungashishchano DO LAB BLOOD ORDERABLES Final R esult Performing Organization Address City/[facility]/ZIP Co de Phone Number [facility] [address] [place] [phone] * (ABNORMAL) Lipid Panel, Standard (01/22/2025 11:23 AM EST) Triglycerides 158(H) <150 mg/dL [facility] Comment:Desirable Triglyceri de: less than 150 mg/dLBorderline High Triglyceride 150-199 mg/dLHigh Triglyceride: 200-499 mg/dLVery High Triglyceride: greater than or equal to 5OO mg/dL Cholesterol 244(H) <200 mg/dL [facility] Comment:Desirable Cholestero l: less than 200 mg/dLBorderline High Cholesterol: 200-239 mg/dLHigh Cholesterol: greater than 239 mg/dL LDL Cholesterol Calculated 157(H) <100 mg/dL [facility] Comment:Desirable LDL: less than 100 mg/dLNear Optimal/Above Optimal LDL: 110- 129 mg/dLBorderline High LDL: 130-159 mg/dLHigh LDL: 160-189 mg/dLVery High LDL: greater than or equal to 190 mg/dL HDL Cholesterol 56 >40 mg/dL [facility] Comment:Desirable HDL: great er than 40 mg/dL Note: This HDL assay may give artificially low results in patients with liver disease. Blood Venous blood specimen / Unknown 01/22/2025 11:23 AM EST 01/22/2025 1:34 PM EST us Nancy Guy DO LAB BLOOD ORDERABLES Final R esult [facility] [address] [place] [phone] * (ABNORMAL) Basic Metabolic Panel (01/22/2025 11:23 AM EST) Sodium 142 135 - 145 mmol/L [facility] Potassium 4.2 3.3 - 5.1 mmol/L [facility] Chloride 106 96 - 108 mmol/L [facility] Carbon Dioxide 30(H) 22 - 29 mmol/L [facility] Anion Gap 10(L) 12 - 20 [facility] Urea Nitrogen (BUN) 12 9 - 16 mg/dL [facility] Creatinine, Serum 1.13 0.5 - 1.4 mg/dL [facility] Estimated Glomerular Filt Rate >60 [facility] Comment:Chronic Kidney Disea se: Estimated GFR < 60 mL/min/1.07k2Uthlou Kidney Disease: Estimated GFR < 15 mL/min/1.73m2 Glucose 89 60 - 115 mg/dL [facility] Calcium 9.6 8.4 - 10.2 mg/dL [facility] Blood Venous blood specimen / Unknown 01/22/2025 11:23 AM EST 01/22/2025 1:34 PM EST us Nancy Jurcsak DO LAB BLOOD ORDERABLES Final R esult [facility] [address] [place] [phone] * POCT Glucose (01/22/2025 10:43 AM EST) Glucose Blood, POC 98 60 - 200 mg/dL [employer] Lot # [id number] Lot# Expiration Date 3,,026 Blood Capillary blood specimen / Unknown 01/22/2025 10:43 AM EST Nancy Guy DO POINT OF CARE TEST ENTER/ANDRIY T ORDERABLES Final Result * (ABNORMAL) POCT Hgb A1c (01/22/2025 10:42 AM EST) Hemoglobin A1C 6.0(A) 4.0 - 5.7 % [employer] Lot # [id number] Lot# Expiration Date 805, Blood 01/22/2025 10:4 2 AM EST Nancy Guy DO POINT OF CARE TEST ENTER/ANDRIY T ORDERABLES Final Result from Last 3 Months Insurance [facility] C3 Care Teams Software Design Engineer Relationship Specialty Start Date End Date Nancy Guy DO [address] [place] [phone] PCP - General Family Medicine 06/23/23
--- NOTE | 2025-02-22 09:33 | HO.ANESPROP2 ---
Documented by User: Adri Krishnan NP 02/22/25 09:33 HPI - Anesthesia Eval Consult details Narrative: 50yo M for Left Lithotripsy ESW PMFSH Active Problems Active Problems: All Active Problems Right flank pain (Acute) Bilateral kidney stones (Acute) Hydronephrosis (Acute) Ureteral stent present (Acute) Right renal stone (Acute) Hydronephrosis concurrent with and due to calculi of kidney and ureter (Acute) Past Medical History Medical History Fibromyalgia Pre-diabetes Hyperlipidemia Depression Cardiac arrhythmia Heart murmur Anxiety Asthma Bilateral ureteral calculi Family History Family history of problems with anesthesia: No Surgical History Surgical History (Updated 02/22/25 @ 10:15 by Darya Kraus RN) Hx of appendectomy Hx of lithotripsy History of Problems with Anesthesia: No Social History Social History Household Members: Significant Other Housing: Apartment Do you presently have visiting nurse or other home services: No Alcohol intake: never Patient Tobacco Use Status: Never used Tobacco Have you been hit, kicked, punched, or otherwise hurt by someone within the past year? If so, by whom?: No Are you DNR?: No Advance Directives: No Advance Directives Information Provided: Yes service: No Current occupational status: disabled Meds Allergies Allergy/AdvReac Type Severity Reaction Status Date / Time seafood Allergy Severe Anaphylaxis Verified 02/22/25 10:09 corn AdvReac Unknown Unknown Verified 02/22/25 10:09 Home Medications ?Medication ?Instructions ?Recorded ?Confirmed ?Last Taken ?Type albuterol sulfate 90 mcg/actuation 2 puff inhalation Q6H PRN 08/11/22 02/26/25 Unknown History aerosol inhaler (Ventolin HFA) Shortness Of Breath Or Wheezing celecoxib 100 mg capsule (Celebrex) 200 mg PO DAILY PRN Pain 08/11/22 02/22/25 12/27/24 History clonazepam 0.5 mg tablet 0.5 mg PO BID PRN Anxiety 08/11/22 02/22/25 Unknown History diclofenac sodium 1 % topical gel 4 g topical QID 08/11/22 02/22/25 12/27/24 History famotidine 40 mg tablet 40 mg PO BEDTIME 08/11/22 02/26/25 Unknown History fluticasone propionate 110 2 puff inhalation BID 08/11/22 02/26/25 Unknown History mcg/actuation HFA aerosol inhaler fluticasone propionate 50 1 spray intranasal DAILY 08/11/22 02/22/25 Unknown History mcg/actuation nasal spray,suspension loratadine 10 mg tablet 10 mg PO BEDTIME PRN Allergic 08/11/22 02/26/25 Unknown History Reaction montelukast 10 mg tablet 10 mg PO BEDTIME 08/11/22 02/26/25 Unknown History (Singulair) pregabalin 200 mg capsule 200 mg PO TID 08/11/22 02/22/25 Unknown History sertraline 100 mg tablet 100 mg PO DAILY 08/11/22 02/22/25 Unknown History zolpidem 10 mg tablet 10 mg PO BEDTIME PRN Sleep 08/11/22 02/22/25 Unknown History amitriptyline 10 mg tablet 10 mg PO BEDTIME 02/22/25 02/22/25 Unknown History Exam Pertinent Lab Results Pertinent Lab Results: Laboratory Tests 01/22/25 11:23 WBC 4.4 L Hgb 16.9 Hct 53.6 H Plt Count 216 Sodium 142 Potassium 4.2 Chloride 106 Carbon Dioxide 30 H BUN 12 Creatinine 1.13 Assessment and Plan Assessment Anesthesia Assessment: Chart Reviewed Final Anesthetic Review Family History of Problems with Anesthesia: No History of Problems with Anesthesia: No Documented by User: Christopher Paez MD 02/26/25 08:18 [facility] Past Medical History Medical History Fibromyalgia Pre-diabetes Hyperlipidemia Depression Cardiac arrhythmia Heart murmur Anxiety Asthma Bilateral ureteral calculi Functional capacity: independent ambulation Surgical History Surgical History (Updated 02/22/25 @ 10:15 by Darya Kraus RN) Hx of appendectomy Hx of lithotripsy Social History Social History Household Members: Significant Other Housing: Apartment Do you presently have visiting nurse or other home services: No Alcohol intake: never Patient Tobacco Use Status: Never used Tobacco Have you been hit, kicked, punched, or otherwise hurt by someone within the past year? If so, by whom?: No Are you DNR?: No Advance Directives: No Advance Directives Information Provided: Yes service: No Current occupational status: disabled Meds Allergies Allergy/AdvReac Type Severity Reaction Status Date / Time seafood Allergy Severe Anaphylaxis Verified 02/22/25 10:09 corn AdvReac Unknown Unknown Verified 02/22/25 10:09 Home Medications ?Medication ?Instructions ?Recorded ?Confirmed ?Last Taken ?Type albuterol sulfate 90 mcg/actuation 2 puff inhalation Q6H PRN 08/11/22 02/26/25 Unknown History aerosol inhaler (Ventolin HFA) Shortness Of Breath Or Wheezing celecoxib 100 mg capsule (Celebrex) 200 mg PO DAILY PRN Pain 08/11/22 02/22/25 12/27/24 History clonazepam 0.5 mg tablet 0.5 mg PO BID PRN Anxiety 08/11/22 02/22/25 Unknown History diclofenac sodium 1 % topical gel 4 g topical QID 08/11/22 02/22/25 12/27/24 History famotidine 40 mg tablet 40 mg PO BEDTIME 08/11/22 02/26/25 Unknown History fluticasone propionate 110 2 puff inhalation BID 08/11/22 02/26/25 Unknown History mcg/actuation HFA aerosol inhaler fluticasone propionate 50 1 spray intranasal DAILY 08/11/22 02/22/25 Unknown History mcg/actuation nasal spray,suspension loratadine 10 mg tablet 10 mg PO BEDTIME PRN Allergic 08/11/22 02/26/25 Unknown History Reaction montelukast 10 mg tablet 10 mg PO BEDTIME 08/11/22 02/26/25 Unknown History (Singulair) pregabalin 200 mg capsule 200 mg PO TID 08/11/22 02/22/25 Unknown History sertraline 100 mg tablet 100 mg PO DAILY 08/11/22 02/22/25 Unknown History zolpidem 10 mg tablet 10 mg PO BEDTIME PRN Sleep 08/11/22 02/22/25 Unknown History amitriptyline 10 mg tablet 10 mg PO BEDTIME 02/22/25 02/22/25 Unknown History Exam Exam Date and Time: 02/26/25 Airway TM Dist: >3cm Loose/Missing/Broken Teeth: No Heart: rrr Lungs: cta Other: normal Assessment and Plan Final Anesthetic Review NPO: Yes ASA Class: II Final Preanesthetic Review: No Changes in Pt Med Stat, Meds/Allgs Chart Reviewed, Consent Obtained/Reviewed and Anes Risks/Benef Reviewed Patient Risk: Low Procedure Risk: Low Anesthetic Plan Anesthetic Plan: GA Disposition: Standard PACU
[2025-02-22 10:16] VITALS: BMI 31.5
[2025-02-26] VITALS (7 sets, daily range): BP systolic 111–138; BP diastolic 72–83; PULSE 67–87; RESP 14–20; TEMP 36.4; O2SAT 95–98; BMI 28.5
--- NOTE | ~2025-02-26 | XR_ITS ---
EXAMINATION: XR ABDOMEN KUB CLINICAL INDICATION: pre eswl left COMPARISON: September 01, 2022. Correlated to CT abdomen and pelvis dated July 20, 2023. TECHNIQUE: AP view of the abdomen. FINDINGS: No calcifications overlapping the kidney shadows. Nonspecific 4 mm calcifications in the pelvis. Gas throughout intestine without intestinal dilatation or air-fluid levels. Osseous structures are intact. XR/XR KUB IMPRESSION: No nephrolithiasis based on x-ray. Electronically signed by: Andrez Rock MD 02/26/2025 07:12 AM [facility]
[2025-02-26] MEDS: Lactated Ringers 1,000 ML 100 ML IVCONT (07:07)
[2025-02-26] MEDS: Lactated Ringers 500 ML 999 ML IV (07:51)
--- NOTE | 2025-02-26 07:53 | PC.NURSE ---
pt received 1 liter bolus in preop
--- NOTE | 2025-02-26 08:53 | MHC.SHP ---
Pre-Procedural Eval Section A - 24 Hr Update-Section A only Date of Service: 02/26/25 The patient is an INPATIENT: No The patient has been examined within 24 hours of the surgical procedure. The History & Physical has been completed within 30 days and I have reviewed it.: Yes Section B - Complete if H&P > 30 days Chief Complaint: Calculus of kidney, left Allergies: Allergies Allergy/AdvReac Type Severity Reaction Status Date / Time seafood Allergy Severe Anaphylaxis Verified 02/22/25 10:09 corn AdvReac Unknown Unknown Verified 02/22/25 10:09 Plan Diagnosis/Plan: Unchanged I have reviewed the history and physical and performed a pertinent physical examination on my patient. No changes have occurred unless specified. Left ESWL. Discussed risks to include but not limited to, blood in the urine, bruising to the skin, kidney hematoma, possible need for another procedure if a stone fragment obstructs the ureter while passing, possible need to repeat procedure if stone is not completely fragmented. Time Spent With Patient Time: Total time managing care of this patient today ____ minutes.
--- NOTE | 2025-02-26 09:36 | W.PM.OPN ---
Operative Note Operative Note Date of Service: 02/26/25 Narrative: PreOperative Diagnosis:? ? Left Renal stone Post Operative Diagnosis:?Left? Renal stone Procedure:?Left? ESWL Surgeon:?Dr Shonna Alvarez Anesthesia:? General Indications for procedure: The patient understands there is a risk of bruising or hematoma to the kidney, infection, and stone migration following the procedure and subsequent intervention may be required.? - Imaging 6 x 5 mm stone Procedure: After informed consent was verified the patient was brought to the operating room and placed in a supine position.? Anesthesia was performed per protocol. Safety pause time-out was performed. Imaging was displayed in the room and laterality confirmed. Left ESWL was performed.?The stone was visualized on both fluoroscopy and ultrasound.? Shockwave lithotripsy was performed, with a maximum rate of 120 hertz. After the first 300 shocks a pause for 3 minutes was completed.? A total of 2500 shocks to a maximum of power of 18 with a maximum rate of 120 hertz.? Good fragmentation of the stone was appreciated. The patient tolerated the procedure well and was transferred to the recovery area upon completion. Complications: None
== END 2025-02-26 11:50 | disposition home or self-care (01) ==
PROVIDERS: Visit Provider Urology
PROC: (CPT 50590; principal; 2025-02-26 08:30)
DX: N20.0 Calculus of kidney (principal); Z87.442 Personal history of urinary calculi; I49.9 Cardiac arrhythmia, unspecified; R01.1 Cardiac murmur, unspecified; F41.9 Anxiety disorder, unspecified; J45.909 Unspecified asthma, uncomplicated; Z79.899 Other long term (current) drug therapy; Z91.013 Allergy to seafood; Z91.018 Allergy to other foods
CPT/HCPCS: 50590; 74018; J0131; J0690; J1100; J1938; J2003; J2405; J2704; J3010

== ENCOUNTER → 2025-02-26 06:20 | Outpatient (BNV) | payer MEDICAID, SELFPAY | PROVIDERS: Visit Provider Urology | DX: N20.0 Calculus of kidney (principal) | CPT/HCPCS: 50590 ==

== ENCOUNTER → 2025-02-26 06:31 | Outpatient (BNV) | payer MEDICAID, SELFPAY | PROVIDERS: Visit Provider Radiology Diagnostic Radiology | DX: N20.0 Calculus of kidney (principal) | CPT/HCPCS: 74018 ==